=== PATIENT | female | born 1950 | race Caucasian/White ===

== ENCOUNTER → 2016-10-13 | Outpatient (CLI) | payer OTHER ==
[~2016-10-13] MED LIST: AZIT250T PO; CLXUNK; ZCRUNK
--- NOTE | 2016-10-13 14:55 | DIAGNOSTIC IMAGING REPORT ---
SINUS CT CT DOSE: 245.11 mGycm HISTORY: Sinusitis CHRONIC RHINITIS TECHNIQUE: Multiaxial CT images of the paranasal sinuses were performed and reformatted in the coronal plane without the use of contrast. COMPARISON: None. FINDINGS: Mild mucosal thickening of the sphenoid ethmoid and maxillary sinuses. Estimated units are patent bilaterally. No evidence for bony destructive process. The mastoid air cells are clear. The bilateral ostiomeatal units are patent. The nasal septum is midline. The orbits are unremarkable. IMPRESSION: Mild mucosal thickening of all major sinuses. 2. Ostiomeatal units are patent bilaterally. Electronically signed by: Geovani Queen M.D. 10/13/2016 2:53 PM Dictated Date/Time: 10/13/2016 2:47 PM
== END | disposition home or self-care (01) ==
LOC: C.CTS 12:37
PROVIDERS: ATTEND Specialist
DX: J31.0 Chronic rhinitis (principal)

== ENCOUNTER → 2016-12-30 | Outpatient (CLI) | payer OTHER ==
--- NOTE | 2016-12-30 14:15 | MAMMOGRAPHY REPORT ---
BILATERAL DIGITAL SCREENING MAMMOGRAM WITH CAD: 12/30/2016 CLINICAL HISTORY: Routine screening. Patient has no complaints. TECHNIQUE: Bilateral CC and MLO views were obtained. Current study was also evaluated with a Compute r Aided Detection (CAD) system. COMPARISON: Comparison is made to exams dated: 12/27/2015 mammogram, 12/25/2014 mammogram, 12/22/2013 m ammogram, 12/20/2012 mammogram, 12/13/2010 mammogram, and 12/12/2009 mammogram - [facility]. BREAST COMPOSITION: There are scattered areas of fibroglandular density in both breasts. FINDINGS: The parenchymal pattern is unchanged. There are a few benign coarse calcifications in the breasts. No developing mass, architectural distortion or cluster of suspicious microcalcifications is seen in either breast. IMPRESSION: ACR BI-RADS CATEGORY 2: BENIGN There is no mammographic evidence of malignancy. A 1 year screening mammogram is recommended. The pa tient will receive written notification of the results. Approximately 10% of breast cancers are not detected with mammography. A negative mammographic report should not delay biopsy if a clinically suggestive mass is present. Radha Clark M.D. ay/:12/30/2016 14:03:58 Capsule Maker: Ashlee Gutierrez, [facility] letter sent: Normal 1/2 BI-RADS Code: ACR BI-RADS Category 2: Benign
== END | disposition home or self-care (01) ==
LOC: C.MAMM 10:42
PROVIDERS: ATTEND Family Medicine
DX: Z12.31 Encounter for screening mammogram for malignant neoplasm of breast (principal)

== ENCOUNTER → 2017-04-28 | Outpatient (CLI) | payer OTHER ==
--- NOTE | 2017-04-28 09:46 | DIAGNOSTIC IMAGING REPORT ---
CT SCAN OF THE PARANASAL SINUSES CLINICAL HISTORY: Chronic sinusitis. COMPARISON STUDY: CT of the brain dated 08/14/2009. TECHNIQUE: High-resolution CT scan of the paranasal sinuses is performed. Images are reviewed in the axial, sagittal, and coronal planes. IV contrast was not administered for this examination. The examination is performed using the fusion protocol. A dose lowering technique was utilized adhering to the principles of ALARA. CT DOSE: 578.82 mGy.cm FINDINGS: Maxillary antra: Mild nodular mucosal thickening is seen bilaterally. Anterior ethmoid sinuses: Clear. Posterior ethmoid sinuses: Clear. Sphenoid sinuses: Mild mucosal thickening is seen on the left. Clear on the right. Frontal sinuses: Clear. Ostiomeatal complexes: Patent bilaterally. Frontoethmoidal and sphenoethmoidal recesses: The frontoethmoidal recesses are patent bilaterally. The sphenoethmoidal recesses are patent, noting narrowing on the left secondary to mucosal thickening. Carotid arteries: The carotid arteries are protuberant but covered and without septal attachments. Ethmoid roofs: The ethmoid roofs are symmetric. Nasal turbinates: Normal in appearance. Nasal septum: There is rightward deviation of the bony nasal septum with a small spur. Optic nerves: Covered. Orbits: The bony orbits are intact. Orbital contents are normal in appearance. There are bilateral ocular lens implants. Calvarium: The skeletal structures are osteopenic. The imaged calvarium is normal in appearance. There is a large periapical lucency identified involving a left maxillary premolar seen on axial image #61. No cortical disruption is seen. Mastoid air cells: Well pneumatized. Brain parenchyma: Partially visualized brain parenchyma is within normal limits. IMPRESSION: 1. Mild paranasal sinus disease as detailed above. 2. There is a large periapical lucency identified involving a left maxillary premolar. Follow-up with dentistry is recommended. Electronically signed by: Grady Limon M.D. 04/28/2017 9:45 AM Dictated Date/Time: 04/28/2017 9:41 AM
== END | disposition home or self-care (01) ==
LOC: C.CTS 09:24
DX: J34.2 Deviated nasal septum (principal); J32.9 Chronic sinusitis, unspecified; J34.3 Hypertrophy of nasal turbinates

== ENCOUNTER 2017-08-08 09:27 | Inpatient (IN) | payer OTHER ==
[~2017-08-08] VITALS: Ht 157.5 cm; Wt 92.4 kg
[2017-08-08] MEDS ORDERED: SODIUM CHLORIDE 0.9% 1000ML 1,000 ML IV STA (09:41)
[2017-08-08] MEDS ORDERED: ASPI81TA28 PO (10:02)
[2017-08-08] MEDS ORDERED: CITA40TA12 PO (10:02)
[2017-08-08] MEDS ORDERED: SIMV40TA2 PO (10:02)
--- NOTE | 2017-08-08 10:02 | DIAGNOSTIC IMAGING REPORT ---
CHEST ONE VIEW PORTABLE CLINICAL HISTORY: Abdominal pain and rectal bleeding status post colonoscopy. COMPARISON STUDY: No previous studies for comparison. FINDINGS: No lucency is identified under the hemidiaphragms to suggest pneumoperitoneum on this exam. Lung volumes are normal. Lungs are clear. There is slight elevation of the right hemidiaphragm. Cardiac size is within normal limits. Mediastinal contours are normal. There is no evidence for pulmonary edema. IMPRESSION: 1. No acute cardiopulmonary findings. 2. No lucency under the hemidiaphragms to suggest pneumoperitoneum on this exam. Electronically signed by: Perry Dai M.D. 08/08/2017 10:00 AM Dictated Date/Time: 08/08/2017 9:59 AM
--- NOTE | 2017-08-08 10:20 | EMERGENCY ROOM VISIT NOTE ---
History Report prepared by Satish: [place] Under the Supervision of: Dr. Thai Zepeda M.D. First contact with patient: 09:37 Chief Complaint: GI ASSESSMENT Stated Complaint: BLOOD IN STOOL POST COLONOSCOPY Nursing Triage Summary: Colonoscopy , Thursday BM "started looking like blood"per patient. " Liquid BM's but toilet water turns red like there is blood" Pt c/o abdominal pain "all over" since colonoscopy. Vomited once night. Colonoscopy was routine. History of Present Illness The patient is a 67 year old female who presents to the Emergency Room with complaints of persistent hematochezia since yesterday. The patient had a routine colonoscopy on with polyp removal. She felt fine following the procedure, until she stared noticing blood in her stool on Thursday. She called the office where she had the colonoscopy performed and they suggested to watch her stools closely and to come to the ED if the symptoms worsen. She continued to see blood in her stool today and decided to bring herself in. The patient states that there is "liquid" brown stool in the toilet, with red blood. She is also experiencing some abdominal cramping, but denies any further lightheadedness, shortness of breath, vomiting, or urinary symptoms. Source of History: patient, family Onset: Yesterday Position: other (Gastrointestinal) Quality: other (Hematochezia) Associated Symptoms: + abdominal pain, No SOB, No vomiting Review of Systems See HPI for pertinent positives and negatives. A total of ten systems were reviewed and were otherwise negative. Past Medical & Surgical Medical Problems: (1) Hx of colonic polyps Hx of colonic polyps Family History Cancer Diabetes mellitus Heart disease Hypertension Kidney disease Kidney stones Social History Smoking Status: Never Smoker Marital Status: Housing Status: lives with family Occupation Status: employed Current/Historical Medications Scheduled Aspirin (Aspirin Ec), 81 MG PO HS Citalopram Hydrobromide (Celexa), 40 MG PO QAM Simvastatin (Zocor), 40 MG PO HS Allergies Coded Allergies: No Known Allergies (Unverified , 08/08/17) Physical Exam Vital Signs Date Time Temp Pulse Resp B/P (MAP) Pulse Ox O2 Delivery O2 Flow Rate FiO2 08/08/17 10:26 86 08/08/17 09:31 36.8 117 17 138/84 94 Room Air Physical Exam GENERAL: Awake, alert, fatigued and uncomfortable appearing, in no distress HENT: Normocephalic, atraumatic. Oropharynx unremarkable. Mucous membranes are dry. EYES: Normal conjunctiva. Sclera non-icteric. NECK: Supple. No nuchal rigidity. FROM. No JVD. RESPIRATORY: Clear to auscultation. CARDIAC: Regular rate, normal rhythm. Extremities warm and well perfused. Pulses equal. ABDOMEN: Soft, non-distended. Mild generalized tenderness to palpation across the abdomen. No peritoneal signs. No rebound or guarding. No masses. RECTAL: Rectal exam reveals dark red blood. Guaiac positive. MUSCULOSKELETAL: Chest examination reveals no tenderness. The back is symmetrical on inspection without obvious abnormality. There is no CVA tenderness to palpation. No joint edema. LOWER EXTREMITIES: Calves are equal size bilaterally and non-tender. No edema. No discoloration. NEURO: Normal sensorium. No sensory or motor deficits noted. SKIN: No rash or jaundice noted. Medical Decision & Procedures ER Provider Diagnostic Interpretation: Radiology results as stated below per my review and radiologist interpretation: CHEST ONE VIEW PORTABLE CLINICAL HISTORY: Abdominal pain and rectal bleeding status post colonoscopy. COMPARISON STUDY: No previous studies for comparison. FINDINGS: No lucency is identified under the hemidiaphragms to suggest pneumoperitoneum on this exam. Lung volumes are normal. Lungs are clear. There is slight elevation of the right hemidiaphragm. Cardiac size is within normal limits. Mediastinal contours are normal. There is no evidence for pulmonary edema. IMPRESSION: 1. No acute cardiopulmonary findings. 2. No lucency under the hemidiaphragms to suggest pneumoperitoneum on this exam. Electronically signed by: Perry Dai M.D. 08/08/2017 10:00 AM Dictated Date/Time: 08/08/2017 9:59 AM Laboratory Results 08/08/17 10:02 Red Blood Count 4.81, Mean Corpuscular Volume 91.1, Mean Corpuscular Hemoglobin 30.4, Mean Corpuscular Hemoglobin Concent 33.3, Mean Platelet Volume 9.6, Neutrophils (%) (Auto) 75.8, Lymphocytes (%) (Auto) 16.7, Monocytes (%) (Auto) 6.6, Eosinophils (%) (Auto) 0.4, Basophils (%) (Auto) 0.1, Neutrophils # (Auto) 10.37, Lymphocytes # (Auto) 2.29, Monocytes # (Auto) 0.90, Eosinophils # (Auto) 0.06, Basophils # (Auto) 0.02 08/08/17 10:02 Test 08/08/17 10:02 White Blood Count 13.69 K/uL (4.8-10.8) Red Blood Count 4.81 M/uL (4.2-5.4) Hemoglobin 14.6 g/dL (12.0-16.0) Hematocrit 43.8 % (37-47) Mean Corpuscular Volume 91.1 fL (80-100) Mean Corpuscular Hemoglobin 30.4 pg (25-34) Mean Corpuscular Hemoglobin Concent 33.3 g/dl (32-36) Platelet Count 282 K/uL (130-400) Mean Platelet Volume 9.6 fL (7.4-10.4) Neutrophils (%) (Auto) 75.8 % Lymphocytes (%) (Auto) 16.7 % Monocytes (%) (Auto) 6.6 % Eosinophils (%) (Auto) 0.4 % Basophils (%) (Auto) 0.1 % Neutrophils # (Auto) 10.37 K/uL (1.4-6.5) Lymphocytes # (Auto) 2.29 K/uL (1.2-3.4) Monocytes # (Auto) 0.90 K/uL (0.11-0.59) Eosinophils # (Auto) 0.06 K/uL (0-0.5) Basophils # (Auto) 0.02 K/uL (0-0.2) RDW Standard Deviation 45.4 fL (36.4-46.3) RDW Coefficient of Variation 13.7 % (11.5-14.5) Immature Granulocyte % (Auto) 0.4 % Immature Granulocyte # (Auto) 0.05 K/uL (0.00-0.02) Prothrombin Time 10.5 SECONDS (9.0-12.0) Prothromb Time International Ratio 1.0 (0.9-1.1) Activated Partial Thromboplast Time 25.8 SECONDS (21.0-31.0) Partial Thromboplastin Ratio 1.0 Anion Gap 5.0 mmol/L (3-11) Est Creatinine Clear Calc Drug Dose 65.3 ml/min Estimated GFR () 79.9 Estimated GFR (Non- 68.9 BUN/Creatinine Ratio 11.9 (10-20) Lactic Acid Level 1.2 mmol/L (0.4-2.0) Calcium Level 8.8 mg/dl (8.5-10.1) Total Bilirubin 0.5 mg/dl (0.2-1) Direct Bilirubin < 0.1 mg/dl (0-0.2) Aspartate Amino Transf (AST/SGOT) 10 U/L (15-37) Alanine Aminotransferase (ALT/SGPT) 17 U/L (12-78) Alkaline Phosphatase 74 U/L (45-117) Total Protein 7.5 gm/dl (6.4-8.2) Albumin 3.3 gm/dl (3.4-5.0) Lipase 90 U/L (73-393) Laboratory results reviewed by me Medications Administered Medications (Trade) Dose Ordered Sig/Kari Route Start Time Stop Time Status Last Admin Dose Admin Sodium Chloride 1,000 ml @ 999 mls/hr Q1H1M STAT IV 08/08/17 09:41 08/08/17 10:41 DC 08/08/17 09:41 999 MLS/HR ECG Indication: abdominal pain Rate (beats per minute): 88 Rhythm: normal sinus Findings: no acute ischemic change, other (Normal [place]) Change: Patient's electrocardiogram interpreted by me. ED Course 0940: The patient was evaluated in room A11B. A complete history and physical exam was performed. 0941: Ordered Sodium Chloride 1000 mL @ 999 mL/hr IV. 1058: I paged for Gastroenterology at this time. 1100: I discussed the case with Dr. Martinez - [facility]. He agrees with admission to the hospital. He suggests bowel prep and maybe a repeat colonoscopy. 1109: I discussed the patient's case with Taylor Rai - [facility]. She will evaluate the patient for further treatment. Medical Decision I reviewed the patient's past medical history, medications, and the nursing notes as described above. Differential diagnosis: Etiologies such as colonic polyps, perforation, appendicitis, diverticulitis, PUD, biliary pathology, UTI, pancreatitis, obstruction, mesenteric ischemia, aortic pathology, infections, inflammatory bowel disease, renal colic, as well as others were entertained. The patient is a 67-year-old woman who presents emergency Department with red blood per rectum after having a colonoscopy on with polyp removal by Dr. Herr per history of present illness. On arrival the patient is fatigued appearing but in no acute distress, afebrile heart rate 110s but otherwise stable vital signs. On exam the patient has dark red blood per rectum that is guaiac positive. Labs unremarkable with hbg 14.6. Chest x-ray negative for free air. Heart rate improved to 80s with IV fluids and patient remained hemodynamically stable. Case discussed with GI completion manager for Dr. Herr, Dr. Martinez, agrees that patient needs criteria for admission. Likely plan for bowel prep and reassessment of bleeding and if persists likely repeat colonoscopy. Cased was discussed Dr. Rai [facility] Hospitalist, who will admit the patient for further management. Blood Pressure Screening Patient's blood pressure: Elevated blood pressure Blood pressure disposition: Elevated BP felt to be situational Consults Time Called: 1058 Consulting Physician: Dr. [facility] Returned Call: 1100 I discussed the case with Dr. [facility]. He agrees with admission to the hospital. He suggests bowel prep and maybe a repeat colonoscopy. Additional Consults: Time Called: 1101 Consulted Physician: Taylor Yanes [facility]. Returned Call: 1109 Additional Comments: I discussed the patient's case with Taylor Yanes [facility]. She will evaluate the patient for further treatment. Impression Primary Impression: GI bleed Scribe Attestation The scribe's documentation has been prepared under my direction and personally reviewed by me in its entirety. I confirm that the note above accurately reflects all work, treatment, procedures, and medical decision making performed by me. Departure Information Dispostion Being Evaluated By Hospitalist Referrals Thelma England M.D. (PCP) Patient Instructions My [facility]
[2017-08-08 10:26] LABS: BASO % 0.1 %; BASO ABS # 0.02 K/uL (0-0.2); EOS % 0.4 %; EOS ABS # 0.06 K/uL (0-0.5); HEMATOCRIT 43.8 % (37-47); HEMOGLOBIN 14.6 g/dL (12.0-16.0); IG# 0.05 K/uL (0.00-0.02); LYMPH % 16.7 %; LYMPH ABS # 2.29 K/uL (1.2-3.4); MEAN CELL VOLUME 91.1 fL (80-100); MEAN CORPUSCULAR HEMOGLOBIN 30.4 pg (25-34); MEAN CORPUSCULAR HGB CONC 33.3 g/dl (32-36); MEAN PLATELET VOLUME 9.6 fL (7.4-10.4); MONO % 6.6 %; NEUT % 75.8 %; NEUT ABS # 10.37 K/uL (1.4-6.5); PLATELET COUNT 282 K/uL (130-400); RED CELL DISTRIBUTION WIDTH CV 13.7 % (11.5-14.5); RED CELL DISTRIBUTION WIDTH SD 45.4 fL (36.4-46.3); WHITE BLOOD COUNT 13.69 K/uL (4.8-10.8)
[2017-08-08 10:35] LABS: PTT PATIENT 25.8 SECONDS (21.0-31.0)
[2017-08-08 10:44] LABS: ALBUMIN 3.3 gm/dl (3.4-5.0); ALT/SGPT 17 U/L (12-78); AST/SGOT 10 U/L (15-37); BLOOD UREA NITROGEN 10 mg/dl (7-18); CALCIUM 8.8 mg/dl (8.5-10.1); CARBON DIOXIDE 26 mmol/L (21-32); CREATININE 0.86 mg/dl (0.60-1.20); GLUCOSE 112 mg/dl (70-99); LIPASE 90 U/L (73-393); POTASSIUM 3.8 mmol/L (3.5-5.1); SODIUM 135 mmol/L (136-145)
[2017-08-08 10:47] LABS: ALKALINE PHOSPHATASE 74 U/L (45-117); TOTAL PROTEIN 7.5 gm/dl (6.4-8.2)
[2017-08-08] MEDS ORDERED: ACETAMINOPHEN 325 MG TAB PO PRN (11:30)
[2017-08-08] MEDS ORDERED: ONDANSETRON INJ 2 MG/ML 2 ML VIAL IV PRN (11:30)
[2017-08-08] MEDS ORDERED: MAGNESIUM HYDROXIDE SUSP 30 ML UDC PO PRN (11:30)
--- NOTE | 2017-08-08 11:39 | History and Physical ---
History & Physical Date & Time of Service: Aug 08, 2017 at 11:32 Chief Complaint: Blood In Stool Post Colonoscopy Primary Care Physician: Thelma England M.D. History of Present Illness Source: patient 67 y/o F c/o BRBPR. Pt had a f/u c-scope on 08/[address] Herr. She has a hx of colon polyps and this was a routine f/u. She has no prior hx of GIB and was not having any bleeding prior to her c-scope. She had no abd complaints prior to her c-scope. She had an uneventful c-scope and polyps were removed at that time. She has been having ongoing BRBPR since her c-scope. It is not getting worse, but it is not improving either. She has diffuse abd pain at times as well. No n/v. She did eat normally on after her scope, but not much yesterday and a bowl of cereal today. She has not seen clots, just blood. The blood is independent of stool. She has actually not passed any stool since her c-scope. She has no urinary issues. Pt denies fever, SOB, chest pain, LE pain or swelling. Pt does take a preventive aspirin 81mg at baseline, however this was on hold for her c-scope and she has not resumed use yet. ED physician spoke with Dr. Martinez, who is nca certified concierge for Dr. Herr. Planning for bowel prep and repeat c-scope. Past Medical/Surgical History Medical Problems: (1) Hx of colonic polyps Status: Chronic Depression Hyperlipidemia Family History Family history was reviewed; no changes noted. Father: s/p [place] Social History Smoking Status: Never Smoker Alcohol Use: none Drug Use: none Marital Status: Occupational Status: employed Multi-Drug Resistant Organisms History of MDRO: No Allergies Coded Allergies: No Known Allergies (Unverified , 08/08/17) Home Medications Scheduled Aspirin (Aspirin Ec), 81 MG PO HS Citalopram Hydrobromide (Celexa), 40 MG PO QAM Simvastatin (Zocor), 40 MG PO HS Review of Systems Pertinent positives and negatives reviewed in HPI--all others negative Physical Exam Vital Signs Date Time Temp Pulse Resp B/P (MAP) Pulse Ox O2 Delivery O2 Flow Rate FiO2 08/08/17 10:26 86 08/08/17 09:31 36.8 117 17 138/84 94 Room Air General Appearance: WD/WN, no apparent distress Head: normocephalic, atraumatic Eyes: normal inspection, sclerae normal Respiratory/Chest: normal breath sounds, no respiratory distress Cardiovascular: regular rate, rhythm, no edema Abdomen/GI: soft, + tenderness (diffuse and mild) Extremities/Musculoskelatal: no calf tenderness, no pedal edema Neurologic/Psych: alert, normal mood/affect, oriented x 3, + pertinent finding (R sided lid lag) Skin: normal color, warm/dry Diagnostics Laboratory Results Results Past 24 Hours Test 08/08/17 10:02 Range/Units White Blood Count 13.69 4.8-10.8 K/uL Red Blood Count 4.81 4.2-5.4 M/uL Hemoglobin 14.6 12.0-16.0 g/dL Hematocrit 43.8 37-47 % Mean Corpuscular Volume 91.1 80-100 fL Mean Corpuscular Hemoglobin 30.4 25-34 pg Mean Corpuscular Hemoglobin Concent 33.3 32-36 g/dl Platelet Count 282 130-400 K/uL Mean Platelet Volume 9.6 7.4-10.4 fL Neutrophils (%) (Auto) 75.8 % Lymphocytes (%) (Auto) 16.7 % Monocytes (%) (Auto) 6.6 % Eosinophils (%) (Auto) 0.4 % Basophils (%) (Auto) 0.1 % Neutrophils # (Auto) 10.37 1.4-6.5 K/uL Lymphocytes # (Auto) 2.29 1.2-3.4 K/uL Monocytes # (Auto) 0.90 0.11-0.59 K/uL Eosinophils # (Auto) 0.06 0-0.5 K/uL Basophils # (Auto) 0.02 0-0.2 K/uL RDW Standard Deviation 45.4 36.4-46.3 fL RDW Coefficient of Variation 13.7 11.5-14.5 % Immature Granulocyte % (Auto) 0.4 % Immature Granulocyte # (Auto) 0.05 0.00-0.02 K/uL Prothrombin Time 10.5 9.0-12.0 SECONDS Prothromb Time International Ratio 1.0 0.9-1.1 Activated Partial Thromboplast Time 25.8 21.0-31.0 SECONDS Partial Thromboplastin Ratio 1.0 Sodium Level 135 136-145 mmol/L Potassium Level 3.8 3.5-5.1 mmol/L Chloride Level 104 98-107 mmol/L Carbon Dioxide Level 26 21-32 mmol/L Anion Gap 5.0 3-11 mmol/L Blood Urea Nitrogen 10 7-18 mg/dl Creatinine 0.86 0.60-1.20 mg/dl Est Creatinine Clear Calc Drug Dose 65.3 ml/min Estimated GFR () 79.9 Estimated GFR (Non- 68.9 BUN/Creatinine Ratio 11.9 10-20 Random Glucose 112 70-99 mg/dl Lactic Acid Level 1.2 0.4-2.0 mmol/L Calcium Level 8.8 8.5-10.1 mg/dl Total Bilirubin 0.5 0.2-1 mg/dl Direct Bilirubin < 0.1 0-0.2 mg/dl Aspartate Amino Transf (AST/SGOT) 10 15-37 U/L Alanine Aminotransferase (ALT/SGPT) 17 12-78 U/L Alkaline Phosphatase 74 45-117 U/L Total Protein 7.5 6.4-8.2 gm/dl Albumin 3.3 3.4-5.0 gm/dl Lipase 90 73-393 U/L CXR normal Impression Assessment and Plan 67 y/o F who was admitted on 08/08 for GIB s/p c-scope GIB: likely related to recent c-scope with polyp removal Hb stable at 14.4, will repeat later today GI planning for repeat c-scope, unsure if this will be today vs tomorrow NPO for now with D5NS +K given mild hypoNa and borderline low normal K Continue to hold aspirin Depression: continue home meds Hyperlipidemia: hold statin and resume s/p c-scope Other: Full code Ambulation for DVT proph NPO with IVF Level of Care Med/Surg Resuscitation Status FULL RESUSCITATION VTE Prophylaxis VTE Risk Assessment Done? Y/N: Yes Risk Level: Low
[2017-08-08 12:45] VITALS: BP 155/83; PULSE 70; TEMP 36.9; O2SAT 98; Ht 157.5 cm; Wt 92.4 kg
[2017-08-08] MEDS: D5NSS + 20MEQ KCL 1,000 ML IV SCH ×2 (13:27→21:40)
[2017-08-08] MEDS ORDERED: OPTIRAY 320 IV PRN (14:15)
--- NOTE | 2017-08-08 14:17 | Gastrointestinal Consultation ---
Gastrointestinal Consultation Date of Consultation: Aug 08, 2017 Attending Physician: Taylor Alfaro Consulting Physician: Willem Martinez Reason for Consultation: GI bleeding History of Present Illness Patient is a 67 year old female with chief complaint of bleeding and abdominal pain. HPI. with patient for H and P. Reviewed [facility] chart and noted patient had colonoscopy 07/2016 with removal of 22 mm AC polyp, diverticulosis and hemorrhoids. Path sessile serrated. She was brought back for repeat colonoscopy by DR Herr on 08/06/17 at which time a 3 mm polyp noted in mid AC and one in mid TC each removed by cold forceps. Muliple sigmoid diverticula and moderate internal hemorrhoids noted. She is on ASA but held prior to procedure and not resumed. She states she had LLQ pain post colo with improvement but never went away completely. Intensitity waxes and wanes with max 8/10 pain. She states on 08/07 noted some bleeding and informed by office to watch and if worsened come to ER which she did today. She thinks she has had a total of about 10 bms all blood including clots. No regular colored stool since colonoscopy. Some n/v and chills on 08/06 but none since. Does have GERD. No previous bleeding and no other GI complaints prior to colonoscopy. CBC on admit WBC 13.7 o/w nl. Coags normal. lactic acid normal. Rectal in ER gross blood. Past Medical/Surgical History Medical Problems: (1) GI bleed Status: Acute (2) Hx of colonic polyps Status: Chronic Family History Cancer Diabetes mellitus Heart disease Hypertension Kidney disease Kidney stones Social History Smoking Status: Never Smoker Drug Use: none Marital Status: Housing Status: lives with family Occupation Status: employed Allergies Coded Allergies: No Known Allergies (Unverified , 08/08/17) Current Medications Home Meds and Scripts Medications Dose Route/Sig Max Daily Dose Days Date Category Aspirin Ec (Aspirin) 81 Mg Tab 81 Mg PO HS 08/08/17 Reported Celexa (Citalopram Hydrobromide) 40 Mg Tab 40 Mg PO QAM 08/08/17 Reported Zocor (Simvastatin) 40 Mg Tab 40 Mg PO HS 08/08/17 Reported Review of Systems see HPI otherwise 10 ROS negative. Physical Exam Date Time Temp Pulse Resp B/P (MAP) Pulse Ox O2 Delivery O2 Flow Rate FiO2 08/08/17 12:45 36.9 70 70 155/83 98 Room Air 08/08/17 12:17 08/08/17 11:31 69 20 153/93 96 Room Air 08/08/17 10:26 86 08/08/17 09:31 36.8 117 17 138/84 94 Room Air General Appearance: WD/WN, no apparent distress Eyes: normal inspection, PERRL ENT: hearing grossly normal, pharynx normal Neck: supple, trachea midline Respiratory/Chest: lungs clear, normal breath sounds, no respiratory distress Cardiovascular: regular rate, rhythm, no edema Abdomen: normal bowel sounds, soft, no organomegaly, no pulsatile mass, + tenderness (mild guarding LLQ and subjective pain RLQ but no rebound) Extremities: normal range of motion, non-tender Neurologic/Psych: public health sanitarian II-XII nml as tested, alert, normal mood/affect, oriented x 3 Skin: normal color, no jaundice Laboratory Results Last 24 Hours Test 08/08/17 10:02 White Blood Count 13.69 K/uL Red Blood Count 4.81 M/uL Hemoglobin 14.6 g/dL Hematocrit 43.8 % Mean Corpuscular Volume 91.1 fL Mean Corpuscular Hemoglobin 30.4 pg Mean Corpuscular Hemoglobin Concent 33.3 g/dl Platelet Count 282 K/uL Mean Platelet Volume 9.6 fL Neutrophils (%) (Auto) 75.8 % Lymphocytes (%) (Auto) 16.7 % Monocytes (%) (Auto) 6.6 % Eosinophils (%) (Auto) 0.4 % Basophils (%) (Auto) 0.1 % Neutrophils # (Auto) 10.37 K/uL Lymphocytes # (Auto) 2.29 K/uL Monocytes # (Auto) 0.90 K/uL Eosinophils # (Auto) 0.06 K/uL Basophils # (Auto) 0.02 K/uL RDW Standard Deviation 45.4 fL RDW Coefficient of Variation 13.7 % Immature Granulocyte % (Auto) 0.4 % Immature Granulocyte # (Auto) 0.05 K/uL Prothrombin Time 10.5 SECONDS Prothromb Time International Ratio 1.0 Activated Partial Thromboplast Time 25.8 SECONDS Partial Thromboplastin Ratio 1.0 Sodium Level 135 mmol/L Potassium Level 3.8 mmol/L Chloride Level 104 mmol/L Carbon Dioxide Level 26 mmol/L Anion Gap 5.0 mmol/L Blood Urea Nitrogen 10 mg/dl Creatinine 0.86 mg/dl Est Creatinine Clear Calc Drug Dose 65.3 ml/min Estimated GFR () 79.9 Estimated GFR (Non- 68.9 BUN/Creatinine Ratio 11.9 Random Glucose 112 mg/dl Lactic Acid Level 1.2 mmol/L Calcium Level 8.8 mg/dl Total Bilirubin 0.5 mg/dl Direct Bilirubin < 0.1 mg/dl Aspartate Amino Transf (AST/SGOT) 10 U/L Alanine Aminotransferase (ALT/SGPT) 17 U/L Alkaline Phosphatase 74 U/L Total Protein 7.5 gm/dl Albumin 3.3 gm/dl Lipase 90 U/L Impression GI bleeding--differential includes post polypectomy bleeding but polyps size and removal technique not typical for polyp bleeding, diverticular bleeding, ischemic colitis, hemorrhoids. Follow H and H. abdominal pain--post polypectomy bleeding and diverticular bleeding are associated with minimal to no pain typically so will check A/P CT to look for ischemic colitis or diverticulitis hemorrhoids--do not really expain either of above. If CT negative then will give golytely bowel prep and make a decision on whether to proceed with colonoscopy or not in next day or two. Colonoscopy would be designed to look for post polypectomy bleeding with therapeutic intent. Ok for clear liquids after back from CT scan.
[2017-08-08] MEDS ORDERED: KETOROLAC TROMETHAMINE 15 MG/ML VIAL IV. PRN (15:30)
[2017-08-08 15:37] VITALS: BP 157/78; PULSE 76; TEMP 36.6; O2SAT 95
--- NOTE | 2017-08-08 17:19 | DIAGNOSTIC IMAGING REPORT ---
ABDOMEN AND PELVIS CT WITH IV AND ORAL CONTRAST CT DOSE: 1294.46 mGy.cm HISTORY: Left lower quadrant abdominal pain, GI bleed post colonoscopy with polypectomy AC and TC TECHNIQUE: Multiaxial CT images of the abdomen and pelvis were performed following the use of intravenous and oral contrast. A dose lowering technique was utilized adhering to the principles of ALARA. COMPARISON STUDY: None. FINDINGS: Mild dependent changes seen at the lung bases. No pneumoperitoneum. No pneumatosis. No fractures within the visualized osseous structures. Small hiatus hernia. There are few small hypodense lesions seen within the liver. Dominant lesion within the left hepatic lobe measures 11 mm. These favor small cysts. The spleen, adrenal glands, gallbladder, and pancreas are unremarkable. No retroperitoneal lymphadenopathy. Bilateral peripelvic renal cysts. No hydronephrosis. The bladder, uterus, and bilateral adnexa are unremarkable. Trace pelvic free fluid. Scattered colonic diverticula. Normal appendix. Moderate bowel wall thickening involving the ascending colon and transverse colon. There is also mild thickening of the majority of the descending colon. No dilated loops of bowel to suggest an obstruction. IMPRESSION: 1. Thickening of the majority of the colon as described above. This is consistent with an inflammatory or infectious colitis. 2. No pneumoperitoneum. No pneumatosis. 3. Trace pelvic fluid. 4. Small hiatus hernia. 5. No evidence for bowel obstruction. Electronically signed by: Ford Stovall M.D. 08/08/2017 5:18 PM Dictated Date/Time: 08/08/2017 5:12 PM
[2017-08-08 18:03] LABS: HEMOGLOBIN 12.8 g/dL (12.0-16.0)
[2017-08-08 23:00] VITALS: BP 137/76; PULSE 72; TEMP 36.8; O2SAT 97
[2017-08-09] MEDS: D5NSS + 20MEQ KCL 1,000 ML IV SCH ×2 (05:10→14:27)
[2017-08-09 06:20] LABS: HEMATOCRIT 36.2 % (37-47); HEMOGLOBIN 11.7 g/dL (12.0-16.0)
[2017-08-09 07:29] VITALS: BP 126/76; PULSE 71; TEMP 37.2; O2SAT 94
[2017-08-09] MEDS: CITALOPRAM 40 MG TAB PO SCH (07:30)
[2017-08-09 08:00] VITALS: O2SAT 94
[2017-08-09] MEDS: CIPROFLOXACIN / D5W 400 MG in PREMIXED IN D5W 200 ML IV SCH ×2 (09:38→20:11)
[2017-08-09] MEDS: METRONIDAZOLE / NSS 500 MG in PREMIXED NSS 100 ML IV SCH ×2 (11:57→18:36)
[2017-08-09 12:10] LABS: HEMATOCRIT 36.9 % (37-47); HEMOGLOBIN 12.2 g/dL (12.0-16.0); MEAN CELL VOLUME 91.3 fL (80-100); MEAN CORPUSCULAR HEMOGLOBIN 30.2 pg (25-34); MEAN CORPUSCULAR HGB CONC 33.1 g/dl (32-36); MEAN PLATELET VOLUME 9.5 fL (7.4-10.4); PLATELET COUNT 231 K/uL (130-400); RED CELL DISTRIBUTION WIDTH CV 13.5 % (11.5-14.5); RED CELL DISTRIBUTION WIDTH SD 45.1 fL (36.4-46.3); WHITE BLOOD COUNT 9.69 K/uL (4.8-10.8)
[2017-08-09 12:44] LABS: CALCIUM 8.2 mg/dl (8.5-10.1); CREATININE 0.73 mg/dl (0.60-1.20)
--- NOTE | 2017-08-09 14:26 | Gastroenterology Progress Note ---
Progress Note Date of Service: Aug 09, 2017 Subjective Pt evaluation today including: conversation w/ patient, conversation w/ family (daughter and ), physical exam, chart review, lab review, review of studies, review of inpatient medication list CC f/u GI Bleeding, abd pain HPI Daugther and with patient for H and P. Pt and nurse think blood is clearing up. Pt states had BM about 0800 and again earlier this afternoon. The afternoon one nurse was not shown. Stools are diarrheal in consistency. i just witnessed one in toilet flecks of brown but no blood at all. Abd pain is improved per patient at 2/10. Has nausea and is not really hungry but can tolerate some of her clear liquid diet. Because of CT suggesting possible infectious etiology she has been placed on cipro and flagyl. I asked patient about first meal post colo and she states had fried eggs not done completely with runny egg whites (not done enough for how she likes them). . No one else ate what she ate. Review of Systems Respiratory: No shortness of breath Cardiac: No chest pain Medications Current Inpatient Medications Medications (Trade) Dose Ordered Sig/Kari Route Start Time Stop Time Status Last Admin Dose Admin Acetaminophen (Tylenol Tab) 650 mg Q4H PRN PO 08/08/17 11:30 09/07/17 11:29 Magnesium Hydroxide (Milk Of Magnesia Susp) 30 ml Q6H PRN PO 08/08/17 11:30 09/07/17 11:29 Ondansetron HCl (Zofran Inj) 4 mg Q6H PRN IV 08/08/17 11:30 09/07/17 11:29 Citalopram Hydrobromide (celeXA TAB) 40 mg QAM PO 08/09/17 08:00 09/08/17 08:59 08/09/17 07:30 40 MG Potassium Chloride/Dextrose/ Sod Cl 1,000 ml @ 125 mls/hr Q8H IV 08/08/17 13:15 09/07/17 13:14 08/09/17 05:10 125 MLS/HR Ioversol (Optiray 320) 111 ml UD PRN IV 08/08/17 14:15 08/12/17 14:14 Ketorolac Tromethamine (Toradol Inj) 15 mg Q6H PRN IV. 08/08/17 15:30 2/1/18 15:29 08/08/17 15:40 15 MG Ciprofloxacin/ Dextrose 400 mg/ Prmx 200 ml @ 100 mls/hr Q12H IV 08/09/17 09:00 08/19/17 08:59 08/09/17 09:38 100 MLS/HR Metronidazole 500 mg/Prmx 100 ml @ 100 mls/hr Q8H IV 08/09/17 11:00 08/19/17 10:59 08/09/17 11:57 100 MLS/HR Objective Vital Signs Date Time Temp Pulse Resp B/P (MAP) Pulse Ox O2 Delivery O2 Flow Rate FiO2 08/09/17 08:30 Room Air 08/09/17 08:00 94 Room Air 08/09/17 07:29 37.2 71 16 126/76 (93) 94 Room Air 08/09/17 00:09 Room Air 08/08/17 23:00 36.8 72 18 137/76 (96) 97 Room Air 08/08/17 16:00 Room Air 08/08/17 15:37 36.6 76 18 157/78 (104) 95 Room Air Physical Exam General Appearance: WD/WN, no apparent distress Cardiovascular: regular rate, rhythm, no edema Abdomen: normal bowel sounds, non tender, soft, no organomegaly, + tenderness ( subjective LLQ pain but no guarding nor rebound, ) Neurologic/Psych: alert, normal mood/affect, oriented x 3 Skin: normal color, no jaundice, warm/dry Laboratory Results Last 24 Hours Test 08/08/17 17:44 08/09/17 05:55 08/09/17 11:47 Hemoglobin 12.8 g/dL 11.7 g/dL 12.2 g/dL Hematocrit 39.0 % 36.2 % 36.9 % White Blood Count 9.69 K/uL Red Blood Count 4.04 M/uL Mean Corpuscular Volume 91.3 fL Mean Corpuscular Hemoglobin 30.2 pg Mean Corpuscular Hemoglobin Concent 33.1 g/dl RDW Standard Deviation 45.1 fL RDW Coefficient of Variation 13.5 % Platelet Count 231 K/uL Mean Platelet Volume 9.5 fL Sodium Level 138 mmol/L Potassium Level 4.0 mmol/L Chloride Level 107 mmol/L Carbon Dioxide Level 25 mmol/L Anion Gap 6.0 mmol/L Blood Urea Nitrogen 5 mg/dl Creatinine 0.73 mg/dl Est Creatinine Clear Calc Drug Dose 77.0 ml/min Estimated GFR () 97.4 Estimated GFR (Non- 84.0 BUN/Creatinine Ratio 6.8 Random Glucose 100 mg/dl Calcium Level 8.2 mg/dl Assessment and Plan GI bleeding--resolved Abnormal colon on CT scan--timimg suggestive of infection or ischemic coltiits. Cdiff negative, Stool cx pending. Continue Abx Diverticulosis--no evidence of diverticulitiis but current abx would cover that also Colon polyp s/p polypectomy---do not thinks she is bleeding from post polypectomy and has is not bleeding at present, anyway. Favor expenctant management at this time with NO plan for colonoscopy at this point. Advance diet as tolerated.
--- NOTE | 2017-08-09 14:31 | Hospitalist Progress Note ---
Hospitalist Progress Note Date of Service Aug 09, 2017. (Dai Poole, NICKC) Subjective Pt evaluation today including: conversation w/ patient, conversation w/ family , physical exam, chart review, lab review, review of studies, review of inpatient medication list Patient reports she was feeling pretty good this AM but states when she got up and moved her abdominal bloating seemed to return. Continues to have diffuse tenderness. On palpation it is only present along the colon track consistent with CT findings. States she had some loose stool this AM but didn't look to see if there was any blood. Tolerating clear diet and states it hasn't made her pain worse. Does feel a little nauseous but no emesis. Hemoglobin trended down which is likely dilutional but is improving. C. diff is negative and leukocytosis resolved. Will cover with Cipro and Flagyl and monitor. Additional Comments: General/Constitutional: Denies fever/chills, fatigue, weakness ENT: Denies nasal drainage, hearing loss, sore throat, trouble swallowing Cardiovascular: Denies chest pain, palpitations, edema Respiratory: Denies cough, sputum, SOB, wheezing, orthopnea GI: + nausea, + diffuse abdominal pain + loose stool; Denies vomiting, constipation : Denies dysuria, frequency, hematuria Musculoskeletal: Denies joint/muscle aches, weakness, swelling Neurologic: Denies dizziness/lightheadedness, numbness/tingling, weakness Hematologic/Lymphatic: Denies bleeding/clotting abnormalities - except for BRBPR prior to admission Skin: Denies rash, new skin changes, easy bruising (Dai Poole, NICKC) Medications Current Inpatient Medications Medications (Trade) Dose Ordered Sig/Kari Route Start Time Stop Time Status Last Admin Dose Admin Acetaminophen (Tylenol Tab) 650 mg Q4H PRN PO 08/08/17 11:30 09/07/17 11:29 Magnesium Hydroxide (Milk Of Magnesia Susp) 30 ml Q6H PRN PO 08/08/17 11:30 09/07/17 11:29 Ondansetron HCl (Zofran Inj) 4 mg Q6H PRN IV 08/08/17 11:30 09/07/17 11:29 Citalopram Hydrobromide (celeXA TAB) 40 mg QAM PO 08/09/17 08:00 09/08/17 08:59 08/09/17 07:30 40 MG Potassium Chloride/Dextrose/ Sod Cl 1,000 ml @ 125 mls/hr Q8H IV 08/08/17 13:15 09/07/17 13:14 08/09/17 05:10 125 MLS/HR Ioversol (Optiray 320) 111 ml UD PRN IV 08/08/17 14:15 08/12/17 14:14 Ketorolac Tromethamine (Toradol Inj) 15 mg Q6H PRN IV. 08/08/17 15:30 08/13/17 15:29 08/08/17 15:40 15 MG Ciprofloxacin/ Dextrose 400 mg/ Prmx 200 ml @ 100 mls/hr Q12H IV 08/09/17 09:00 08/19/17 08:59 08/09/17 09:38 100 MLS/HR Metronidazole 500 mg/Prmx 100 ml @ 100 mls/hr Q8H IV 08/09/17 11:00 08/19/17 10:59 08/09/17 11:57 100 MLS/HR (Dai Poole PA-C) Objective Vital Signs Date Time Temp Pulse Resp B/P (MAP) Pulse Ox O2 Delivery O2 Flow Rate FiO2 08/09/17 08:30 Room Air 08/09/17 08:00 94 Room Air 08/09/17 07:29 37.2 71 16 126/76 (93) 94 Room Air 08/09/17 00:09 Room Air 08/08/17 23:00 36.8 72 18 137/76 (96) 97 Room Air 08/08/17 16:00 Room Air 08/08/17 15:37 36.6 76 18 157/78 (104) 95 Room Air (Dai Poole PA-C) Physical Exam Notes: General Appearance: WDWN in NAD who is A&O x 3 HEENT: Head is normocephalic/atraumatic; Hearing grossly intact; Mucous membranes moist; Pharynx negative for exudate/lesions Neck: Supple; Trachea midline; Neg JVD; Neg lymphadenopathy Heart: RRR with no M/G/R Lungs: CTA in all lung ramos bilaterally; Respirations unlabored; Neg accessory muscle use Abdomen: + Tenderness along colonic track; neg guarding or rigidity - no acute abdomen; Soft with minimal distension; Positive BS x 4 quadrants Extremities: Neg cyanosis or edema Neurological: Speech clear; Neg focal neurologic deficits Psychiatric: Appropriate mood/affect Skin: Normal Color; Warm/Dry (Dai Poole PA-C) Laboratory Results Last 24 Hours Test 08/08/17 17:44 08/09/17 05:55 08/09/17 11:47 Hemoglobin 12.8 g/dL 11.7 g/dL 12.2 g/dL Hematocrit 39.0 % 36.2 % 36.9 % White Blood Count 9.69 K/uL Red Blood Count 4.04 M/uL Mean Corpuscular Volume 91.3 fL Mean Corpuscular Hemoglobin 30.2 pg Mean Corpuscular Hemoglobin Concent 33.1 g/dl RDW Standard Deviation 45.1 fL RDW Coefficient of Variation 13.5 % Platelet Count 231 K/uL Mean Platelet Volume 9.5 fL Sodium Level 138 mmol/L Potassium Level 4.0 mmol/L Chloride Level 107 mmol/L Carbon Dioxide Level 25 mmol/L Anion Gap 6.0 mmol/L Blood Urea Nitrogen 5 mg/dl Creatinine 0.73 mg/dl Est Creatinine Clear Calc Drug Dose 77.0 ml/min Estimated GFR () 97.4 Estimated GFR (Non- 84.0 BUN/Creatinine Ratio 6.8 Random Glucose 100 mg/dl Calcium Level 8.2 mg/dl (Dai Poole PA-C) Assessment and Plan 67 y/o F who was admitted on 08/08 for GIB s/p c-scope GIB - BRBPR S/P Recent Colonoscopy: - Initial decrease in Hgb which is likely dilutional and stabilizing - no indications for transfusion - Will continue to monitor - patient reports 2 loose stool this AM but did not check for blood Sepsis 2/2 Colitis: - CT shows diffuse thickening of the majority of the colon and suspect infectious souce; patient was initially tachycardic with a leukocytosis that has resolved - C. diff is negative with stool cx pending - Ciprofloxacin 400 mg BID and Flagyl 500 mg TID - Continue to hold ASA - Continue clear liquid diet - GI following - appreciate recommendations - suggests infectious etiology and no indications for repeat colonoscopy at this time DVT Prophylaxis: SCDs Code Status: FULL RESUSCITATION Disposition: - Continue clear liquid diet and monitor Continued [facility] stay due to: multiple IV medications needed Discharge planning: home (Dai Poole, AMDELEINE) Reviewed: Pt Seen/Exam by Me (Chiquis Lancaster MD) History Physician Natural Sciences Professor Supervision Note: I interviewed and examined the patient. Discussed with YEVGENIY Poole and agree with findings and plan as documented in the note. Any exceptions or clarifications are listed here: Pt feeling better later in the day, abd pain mild but still present. Had a brown stool this afternoon. Hgb has remained stable throughout the day. Afebrile. Vitals reviewed NAD, obese RRR no mgr CTAB no wcr Abd +BS, soft, +TTP LLQ and RLQ without guarding or rebound tenderness Ext no edema 67 yo female with a h/o sessile serrated colon polyps, depression, hyperlipidemia, here with GI bleeding and abdominal pain, with pancolitis, sepsis s/p colonoscopy with polypectomy. C. diff and stool culture negative -hgb with slight drop but has stabilized -bleeding most likely secondary to either infectious colitis vs ischemic colitis as was painful and given diffuse colon wall thickening on CT; not likely secondary to polypectomy bleeding -started Cipro and Flagyl empirically today -follow WBC count -continue clears diet today and advance as tolerated perhaps in the AM -continue IVFs for now Documented By: Chiquis Lancaster (Chiquis Lancaster MD)
[2017-08-09 15:15] VITALS: BP 149/83; PULSE 66; TEMP 36.7; O2SAT 98
[2017-08-09 23:17] VITALS: BP 138/81; PULSE 71; TEMP 36.8; O2SAT 95
[2017-08-10] MEDS: METRONIDAZOLE / NSS 500 MG in PREMIXED NSS 100 ML IV SCH (03:29)
[2017-08-10 06:01] LABS: HEMATOCRIT 35.9 % (37-47); HEMOGLOBIN 11.7 g/dL (12.0-16.0); MEAN CELL VOLUME 91.3 fL (80-100); MEAN CORPUSCULAR HEMOGLOBIN 29.8 pg (25-34); MEAN CORPUSCULAR HGB CONC 32.6 g/dl (32-36); MEAN PLATELET VOLUME 9.6 fL (7.4-10.4); PLATELET COUNT 228 K/uL (130-400); RED CELL DISTRIBUTION WIDTH CV 13.4 % (11.5-14.5); RED CELL DISTRIBUTION WIDTH SD 44.7 fL (36.4-46.3); WHITE BLOOD COUNT 7.08 K/uL (4.8-10.8)
[2017-08-10] MEDS: D5NSS + 20MEQ KCL 1,000 ML IV SCH ×2 (06:16→12:35)
[2017-08-10 06:40] LABS: CALCIUM 8.3 mg/dl (8.5-10.1); CREATININE 0.74 mg/dl (0.60-1.20); POTASSIUM 3.8 mmol/L (3.5-5.1)
[2017-08-10 07:39] VITALS: BP 152/84; PULSE 69; TEMP 36.8; O2SAT 95
[2017-08-10] MEDS: CIPROFLOXACIN / D5W 400 MG in PREMIXED IN D5W 200 ML IV SCH (07:42)
[2017-08-10] MEDS: CITALOPRAM 40 MG TAB PO SCH (07:42)
[2017-08-10 08:00] VITALS: O2SAT 95
--- NOTE | 2017-08-10 09:23 | Clinical Documentation Query ---
MIKE Juarez : CLINICAL DOCUMENTATION QUERY Patient is a 67 year old female admitted for evaluation of BRBPR s/p recent colonoscopy. CT scan of the abdomen demonstrated "diffuse thickening of the majority of the colon and suspect infectious source". To avoid uncertainty at time of discharge, consider documentation by one of two means suggested below. In your clinical opinion is this patient being managed for: ( ) Sepsis due to pancolitis s/p colonoscopy and polypectomy, a complication of care ( ) Sepsis due to pancolitis s/p colonoscopy and polypectomy, NOT a complication of care ( ) Not Agree ( ) Other explanation of clinical findings (Please Explain) ( ) Unable to determine (Please Define) ( ) Need to Discuss The medical record reflects the following clinical findings, treatment, and risk factors. Clinical Indicators: As above Treatment: Ciprofloxacin, Flagyl, ASA, CL diet, GI consultation Risk Factors: Recent colonoscopy Please clarify and document your clinical opinion in the progress notes and discharge summary. Terms such as "probable", "suspected", "likely", "questionable", "possible", or "still to be ruled out" are acceptable. IF IN AGREEMENT, YOU MUST DOCUMENT ABOVE DIAGNOSTIC STATEMENT IN DAILY PROGRESS NOTES AND DISCHARGE SUMMARY. This document is not part of the patient's record. Thank You, Willem Alexandre RN [phone]
[2017-08-10] MEDS ORDERED: METRONIDAZOLE 500 MG TAB PO SCH (11:00)
[2017-08-10] MEDS ORDERED: NURSING VERBAL MED ORDER ONE (12:45)
--- NOTE | 2017-08-10 12:48 | Clinical Documentation Query ---
SAM MCKENZIE : CLINICAL DOCUMENTATION QUERY Patient is a 67 year old female admitted for evaluation of BRBPR s/p recent colonoscopy. CT scan of the abdomen demonstrated "diffuse thickening of the majority of the colon and suspect infectious source". To avoid uncertainty at time of discharge, consider documentation by one of two means suggested below. In your clinical opinion is this patient being managed for: ( ) Sepsis due to pancolitis s/p colonoscopy and polypectomy, a complication of care ( x) Sepsis due to pancolitis s/p colonoscopy and polypectomy, NOT a complication of care ( ) Not Agree ( ) Other explanation of clinical findings (Please Explain) ( ) Unable to determine (Please Define) ( ) Need to Discuss The medical record reflects the following clinical findings, treatment, and risk factors. Clinical Indicators: As above Treatment: Ciprofloxacin, Flagyl, ASA, CL diet, GI consultation Risk Factors: Recent colonoscopy Please clarify and document your clinical opinion in the progress notes and discharge summary. Terms such as "probable", "suspected", "likely", "questionable", "possible", or "still to be ruled out" are acceptable. IF IN AGREEMENT, YOU MUST DOCUMENT ABOVE DIAGNOSTIC STATEMENT IN DAILY PROGRESS NOTES AND DISCHARGE SUMMARY. This document is not part of the patient's record. Thank You, Willem Alexandre, RODRICK [phone]
[2017-08-10] MEDS ORDERED: MTR500 PO (13:00)
[2017-08-10] MEDS ORDERED: CPR500 PO (13:00)
--- NOTE | 2017-08-10 13:17 | Gastroenterology Progress Note ---
Progress Note Date of Service: Aug 10, 2017 Subjective Pt evaluation today including: conversation w/ patient, conversation w/ family (), physical exam, chart review, lab review, review of studies, review of inpatient medication list cc f/u GI bleeding. HPI Pt states minimal to no pain. No further blood in stools. Tolerating full liquid diet so far and wants to go home. Review of Systems Respiratory: No shortness of breath Cardiac: No chest pain Medications Current Inpatient Medications Medications (Trade) Dose Ordered Sig/Kari Route Start Time Stop Time Status Last Admin Dose Admin Acetaminophen (Tylenol Tab) 650 mg Q4H PRN PO 08/08/17 11:30 09/07/17 11:29 Magnesium Hydroxide (Milk Of Magnesia Susp) 30 ml Q6H PRN PO 08/08/17 11:30 09/07/17 11:29 Ondansetron HCl (Zofran Inj) 4 mg Q6H PRN IV 08/08/17 11:30 09/07/17 11:29 Citalopram Hydrobromide (celeXA TAB) 40 mg QAM PO 08/09/17 08:00 09/08/17 08:59 08/10/17 07:42 40 MG Potassium Chloride/Dextrose/ Sod Cl 1,000 ml @ 80 mls/hr [id number] IV 08/08/17 13:15 09/07/17 13:14 08/10/17 06:16 80 MLS/HR Ioversol (Optiray 320) 111 ml UD PRN IV 08/08/17 14:15 08/12/17 14:14 Ketorolac Tromethamine (Toradol Inj) 15 mg Q6H PRN IV. 08/08/17 15:30 08/13/17 15:29 08/08/17 15:40 15 MG Ciprofloxacin (Cipro Tab) 500 mg BID PO 08/10/17 20:00 08/19/17 19:59 Metronidazole (Flagyl Tab) 500 mg TID PO 08/10/17 11:00 08/19/17 23:59 08/10/17 12:24 500 MG Miscellaneous Information (Nursing Verbal Med Order) 1 ea ONE ONCE N/A 08/10/17 12:45 08/10/17 12:46 UNV Objective Vital Signs Date Time Temp Pulse Resp B/P (MAP) Pulse Ox O2 Delivery O2 Flow Rate FiO2 08/10/17 08:00 95 Room Air 08/10/17 07:39 36.8 69 16 152/84 (106) 95 Room Air 08/10/17 00:01 Room Air 08/09/17 23:17 36.8 71 18 138/81 (100) 95 Room Air 08/09/17 16:00 Room Air 08/09/17 15:15 36.7 66 16 149/83 (105) 98 Physical Exam General Appearance: WD/WN, no apparent distress Cardiovascular: regular rate, rhythm, no edema Abdomen: normal bowel sounds, non tender, soft, no organomegaly, no pulsatile mass Neurologic/Psych: alert, normal mood/affect, oriented x 3 Skin: normal color Laboratory Results Last 24 Hours Test 08/10/17 05:18 White Blood Count 7.08 K/uL Red Blood Count 3.93 M/uL Hemoglobin 11.7 g/dL Hematocrit 35.9 % Mean Corpuscular Volume 91.3 fL Mean Corpuscular Hemoglobin 29.8 pg Mean Corpuscular Hemoglobin Concent 32.6 g/dl RDW Standard Deviation 44.7 fL RDW Coefficient of Variation 13.4 % Platelet Count 228 K/uL Mean Platelet Volume 9.6 fL Sodium Level 138 mmol/L Potassium Level 3.8 mmol/L Chloride Level 107 mmol/L Carbon Dioxide Level 25 mmol/L Anion Gap 6.0 mmol/L Blood Urea Nitrogen 4 mg/dl Creatinine 0.74 mg/dl Est Creatinine Clear Calc Drug Dose 75.9 ml/min Estimated GFR () 95.8 Estimated GFR (Non- 82.7 BUN/Creatinine Ratio 5.3 Random Glucose 107 mg/dl Calcium Level 8.3 mg/dl Magnesium Level 2.0 mg/dl Assessment and Plan GI bleeding--resolved Abnormal colon on CT scan--timimg suggestive of infection or ischemic coltiits. Cdiff negative, Stool cx NGSF. Continue Abx for total 10 day course Diverticulosis--no evidence of diverticulitiis but current abx would cover that also Colon polyp s/p polypectomy---do not thinks she is bleeding from post polypectomy and has is not bleeding at present, anyway. Discussed with Dai VUONG for hospitalists and agree with their plan to DC patient today on abx for 10 days. Told her and patient to delay ASA resumption at least until thusday of this week and perhaps longer. Told patient I feel infection most likely explanation and should resolve but if having further ongoing symptoms then arrange OV with DR Herr.
--- NOTE | 2017-08-10 13:34 | Discharge Instructions ---
Discharge Instructions Date of Service Aug 10, 2017. Admission Reason for Admission: Gi Bleed Discharge Discharge Diagnosis / Problem: GI Bleed; Infectious Colitis Discharge Goals Goal(s): Decrease discomfort, Improve function, Increase independence Activity Recommendations Activity Limitations: resume your previous activity . Instructions / Follow-Up Instructions / Follow-Up Infectious Colitis - Infection of Large Intestine: - You will continue on Ciprofloxacin twice a day and Flagyl three times a day to complete a 10 day course. You had one day of treatment in the hospital. -- You had medications today and will need to take only one of Cipro and one of Flagyl this evening of 08/10. - Continue a low fiber diet for the next week Bloody Bowel Movements: - Continue to hold your aspirin until August 13 Current Hospital Diet Patient's current hospital diet: Low Fiber Diet Discharge Diet Recommended Diet: Low Fiber Diet Pending Studies Studies pending at discharge: no Medical Emergencies . Who to Call and When: Medical Emergencies: If at any time you feel your situation is an emergency, please call 911 immediately. . Non-Emergent Contact Non-Emergency issues call your: Primary Care Provider Call Non-Emergent contact if: you have a fever, your pain is concerning you, you have any medication questions . . "Provider Documentation" section prepared by Dai Poole. . VTE Core Measure Inpt VTE Proph given/why not?: SCD's
[2017-08-10 13:55] VITALS: BP 152/84; PULSE 69; TEMP 36.8; O2SAT 95
[2017-08-10] MEDS ORDERED: CIPROFLOXACIN 500 MG TAB PO SCH (20:00)
--- NOTE | 2017-08-10 22:03 | Discharge Summary ---
Discharge Summary Date of Service Aug 10, 2017. Discharge Summary Admission Date: Aug 08, 2017 at 11:30 Discharge Date: Aug 10, 2017 Discharge Disposition: Home Principal Diagnosis: Sepsis 2/2 Pancolitis S/P Colonoscopy, Not a Complication of Care Problems/Secondary Diagnoses: Hx of colonic polyps Dyslipidemia Depression Procedures: ABDOMEN AND PELVIS CT WITH IV AND ORAL CONTRAST FINDINGS: Mild dependent changes seen at the lung bases. No pneumoperitoneum. No pneumatosis. No fractures within the visualized osseous structures. Small hiatus hernia. There are few small hypodense lesions seen within the liver. Dominant lesion within the left hepatic lobe measures 11 mm. These favor small cysts. The spleen, adrenal glands, gallbladder, and pancreas are unremarkable. No retroperitoneal lymphadenopathy. Bilateral peripelvic renal cysts. No hydronephrosis. The bladder, uterus, and bilateral adnexa are unremarkable. Trace pelvic free fluid. Scattered colonic diverticula. Normal appendix. Moderate bowel wall thickening involving the ascending colon and transverse colon. There is also mild thickening of the majority of the descending colon. No dilated loops of bowel to suggest an obstruction. IMPRESSION: 1. Thickening of the majority of the colon as described above. This is consistent with an inflammatory or infectious colitis. 2. No pneumoperitoneum. No pneumatosis. 3. Trace pelvic fluid. 4. Small hiatus hernia. 5. No evidence for bowel obstruction. Consultations: 1. Gastroenterology Medication Reconciliation New Medications: Ciprofloxacin (Ciprofloxacin HCl) 500 Mg Tab 500 MG PO BID, #17 TAB Take one dose this evening of 08/10. Then resume twice a day on 08/11. Metronidazole (Metronidazole) 500 Mg Tab 500 MG PO TID, #25 TAB Take one tablet tonight 08/10. Then resume three times a day on 08/11. Continued Medications: Aspirin (Aspirin Ec) 81 Mg Tab 81 MG PO HS Hold until Aug.13 Citalopram Hydrobromide (Celexa) 40 Mg Tab 40 MG PO QAM Simvastatin (Zocor) 40 Mg Tab 40 MG PO HS Discharge Exam General/Constitutional: Denies fever/chills, fatigue, weakness ENT: Denies visual changes, nasal drainage, hearing loss, sore throat, trouble swallowing Cardiovascular: Denies chest pain, palpitations, edema Respiratory: Denies cough, sputum, SOB, wheezing, orthopnea GI: Denies nausea, vomiting, abdominal pain, constipation, diarrhea, melena/ hematochezia : Denies dysuria, frequency, hematuria Musculoskeletal: Denies joint/muscle aches, weakness, swelling Neurologic: Denies dizziness/lightheadedness, numbness/tingling, weakness Hematologic/Lymphatic: Denies bleeding/clotting abnormalities Skin: Denies rash, itch, new skin changes, easy bruising General Appearance: WDWN in NAD who is A&O x 3 HEENT: Head is normocephalic/atraumatic; Hearing grossly intact; Mucous membranes moist; Pharynx negative for exudate/lesions Neck: Supple; Trachea midline; Neg JVD; Neg lymphadenopathy Heart: RRR with no M/G/R Lungs: CTA in all lung ramos bilaterally; Respirations unlabored; Neg accessory muscle use Abdomen: Soft, non-tender, non-distended; Positive BS x 4 quadrants Extremities: Neg edema Neurological: Speech clear; Neg focal neurologic deficits Psychiatric: Appropriate mood/affect Skin: Normal Color; Warm/Dry Hospital Course ADMISSION: 67 y/o F c/o BRBPR. Pt had a f/u c-scope on 08/[address] Herr. She has a hx of colon polyps and this was a routine f/u. She has no prior hx of GIB and was not having any bleeding prior to her c-scope. She had no abd complaints prior to her c-scope. She had an uneventful c-scope and polyps were removed at that time. She has been having ongoing BRBPR since her c-scope. It is not getting worse, but it is not improving either. She has diffuse abd pain at times as well. No n/v. She did eat normally on after her scope, but not much yesterday and a bowl of cereal today. She has not seen clots, just blood. The blood is independent of stool. She has actually not passed any stool since her c-scope. She has no urinary issues. Pt denies fever, SOB, chest pain, LE pain or swelling. Pt does take a preventive aspirin 81mg at baseline, however this was on hold for her c-scope and she has not resumed use yet. ED physician spoke with Dr. Martinez, who is air traffic control operator for Dr. Herr. Planning for bowel prep and repeat c-scope. HOSPITAL COURSE: Ms. Tao was admitted for Sepsis from Pancolitis S/P Colonoscopy and Polypectomy, that does not appear to be a complication of care. She also presented with BRBPR which has resolved. Likely etiology is infectious as symptoms to not fit with complications of polypectomy. She does report eating eggs after the scope that was not completely cooked? She quickly responded to Cipro and Flagyl and will continue to complete a 10 day course. She is afebrile and without leukocytosis. She is tolerating low residue diet and pain is resolved. She has had multiple bowel movements that are brown in color without visible blood. She was instructed to hold ASA therapy for one week after scope and can resume on 08/13/2017. Total Time Spent: Greater than 30 minutes This includes examination of the patient, discharge planning, medication reconciliation, and communication with other providers. Discharge Instructions Please refer to the electronic Patient Visit Report (Discharge Instructions) for additional information. Additional Copies To Thelma England M.D. Reviewed: Pt Seen/Exam by Me History Physician Program Director Substance Abuse Supervision Note: I interviewed and examined the patient. Discussed with YEVGENIY Poole and agree with findings and plan as documented in the note. Any exceptions or clarifications are listed here: Pt feels great todya, [place]ka low residue diet, no abd pain, no N/V, no further blood in stool. Has some loose stools. Hgb remains stable Vitals reviewed NAD, obese RRR no mgr CTAB no wcr Abd +BS, soft, no TTP Ext no edema 67 yo female with a h/o sessile serrated colon polyps, depression, hyperlipidemia, here with GI bleeding and abdominal pain, with pancolitis, sepsis s/p colonoscopy with polypectomy. C. diff and stool culture negative. leukocytosis resolved, afebrile -hgb with slight drop initially, but has since remained stable -bleeding most likely secondary to either infectious colitis vs ischemic colitis as was painful and given diffuse colon wall thickening on CT; not likely secondary to polypectomy bleeding -complete Cipro and Flagyl for 10 day course -dc to home on low residue diet -f/u with PCP and GI within 1-2 weeks Documented By: Chiquis Lancaster Documented By: Chiquis Lancaster
== END 2017-08-10 14:40 | disposition home or self-care (01) | DRG 872 ==
LOC: C.EDB 09:29 → C.4E 11:30 → ENRESERV 11:45
PROVIDERS: ADMIT Family Medicine; ATTEND Family Medicine
DX: A41.9 Sepsis, unspecified organism (principal); K51.00 Ulcerative (chronic) pancolitis without complications; K91.840 Postprocedural hemorrhage of a digestive system organ or structure following a digestive system procedure; Z87.19 Personal history of other diseases of the digestive system; E78.5 Hyperlipidemia, unspecified; F32.9 Major depressive disorder, single episode, unspecified; Z82.49 Family history of ischemic heart disease and other diseases of the circulatory system

== ENCOUNTER 2022-01-15 13:59 | Inpatient (IN) ==
--- NOTE | 2022-01-15 14:55 | ED Triage Note ---
Date of Service January 15, 2022 History of Present Illness This patient was briefly evaluated while in triage. An abbreviated physical exam was performed. This patient is a 71-year-old Female who presents to the ED for evaluation of dyspnea on exertion and low O2 levels for the past week, sent by PCP. GENERAL: Resting comfortably, in no acute distress CARDIAC: Systolic murmur at pulmonic region. Regular rate and normal rhythm. 1+ pitting edema in bilateral lower extremities SKIN: [place] warm dry no diaphoresis. O2 saturation 88% on room air. Placed on 2L nasal cannula up to 95%. Physical Exam Initial orders for labs and / or imaging were placed and patient was placed in the waiting area until a bed is available. Please see further documentation for the full ED course.
[2022-01-15 15:29] LABS: Basophils # (auto) 0.05 K/uL (0-0.2); Basophils % (auto) 0.5 %; Eosinophils # (auto) 0.12 K/uL (0-0.50); Eosinophils % (auto) 1.2 %; Hematocrit (blood only) 28.5 % (34.1-44.9); Hemoglobin 8.9 g/dl (12.0-16.0); Immature Granulocytes # (auto) 0.16 K/uL (0.00-0.02); Immature Granulocytes % (auto) 1.5 %; Lymphocytes # (auto) 1.73 K/uL (1.2-3.4); Lymphocytes % (auto) 16.7 %; Mean Corpuscular Hemoglobin 33.2 pg (25.0-34.0); Mean Corpuscular Hgb Conc 31.2 g/dL (32.0-36.0); Mean Corpuscular Volume 106.3 fL (80.0-100.0); Mean Platelet Volume 9.3 fL (9.4-12.3); Monocytes # (auto) 0.78 K/uL (0.24-0.82); Monocytes % (auto) 7.5 %; Neutrophils # (auto) 7.52 K/uL (1.4-6.5); Neutrophils % (auto) 72.6 %; Nucleated RBC # (auto) 0.04 K/uL (0-0); Nucleated RBC % (auto) 0.4 %; Platelet Count 481 K/uL (130-400); RDW Coefficient of Variation 16.7 % (11.5-14.5); RDW Standard Deviation 60.5 fL (36.4-46.3); Red Blood Count 2.68 M/uL (3.93-5.22); White Blood Count 10.36 K/ul (4.8-10.8)
[2022-01-15 15:51] LABS: Troponin I High Sensitivity 45.9 pg/ml (0-14)
[2022-01-15 15:55] LABS: Albumin Globulin Ratio 1.3 (0.9-2); Albumin Level 4.1 gm/dl (3.4-5.0); Bilirubin,Total 1.8 mg/dl (0.2-1.0); Calcium 9.4 mg/dl (8.5-10.1); Creatinine Clr Calc Pharmacy 56.3 ml/min; Est GFR (African American) 69.8 ml/min; Est GFR (Non-African American) 60.2 ml/min; Globulin 3.1 gm/dl (2.5-4.0); Potassium 3.9 mmol/L (3.5-5.1); Total Protein 7.2 gm/dl (6.0-8.3)
[2022-01-15 16:00] LABS: D Dimer 7460 ug/L FEU (0-500)
[2022-01-15] MEDS ORDERED: SODIUM CHLORIDE 0.9% 1000ML 1,000 ML IV ONE (16:06)
--- NOTE | 2022-01-15 16:09 | Emergency Department Note ---
Impression & Plan Pulmonary emboli, Elevated troponin, Hypoxia ED Provider Note EvalNAME: ARTHUR BATISTA AGE: 71 SEX: F : 1950 ARRIVES VIA: Walk-In INFORMANT: Patient ED PROVIDER(S): Arturo Looney DO CHIEF COMPLAINT: anxious HPI: Patient is a 71-year-old female who presents the ER for anxiety. Patient saw PCP and was referred in [facility] that showed that she was found to be hypoxic and tachycardic. Denies any headache or change in vision. No chest pain or shortness of breath. No belly pain, nausea, vomiting, or diarrhea. No dysuria, urgency, or frequency. No other exacerbating or remitting factors. She notes that she just feels very anxious. From doctor's office she notes she has been having exertional shortness of breath for the past several days. Denies any recent trips or travel. No history of blood clots. ROS: See above HPI for pertinent positives & negatives. A total of 10 systems reviewed and were otherwise negative. PAST MEDICAL HISTORY:See Below PAST SURGICAL HISTORY:See Below FAMILY HISTORY:See Below SOCIAL HISTORY:See Below HOME MEDICATIONS:See Below ALLERGIES:See Below VITALS:See Below PHYSICAL EXAMINATION: GENERAL: Sitting up in bed, alert, well appearing, well nourished, no distress, non-toxic EYE EXAM: normal conjunctiva. PERRL and EOM's grossly intact. OROPHARYNX: mucous membranes are moist NECK: supple, no nuchal rigidity, no adenopathy, non-tender LUNGS: Clear to auscultation. Normal chest wall mechanics HEART: no murmurs, S1 normal and S2 normal ABDOMEN: abdomen soft, non-tender, normo-active bowel sounds, no masses, no rebound or guarding. UPPER EXTREMITIES: upper extremities are grossly normal. LOWER EXTREMITIES: No pitting edema. Calves are equal bilateral NEURO EXAM: Normal sensorium, cranial nerves II-XII grossly intact, normal speech, no gross weakness of arms, no gross weakness of legs. MEDICAL DECISION MAKING: Patient is a 71-year-old [place] due to high volumes but she was on nasal cannula when she was evaluated. IV was established blood work was obtained. Labs show no significant leukocytosis. There is a mild anemia at 8.9 her baseline of 11 back in 2018. Platelets 481. D-dimer was elevated at 7000. BMP on LFTs was unremarkable. Troponin was detectable at 45. proBNP slightly up at 162. TSH was unremarkable. COVID was negative. Chest x-ray was benign. CT angio of the chest showed extensive bilateral PEs. Rectal exam was performed and negative. She denies any bleeding risk factors. No black stools or dark tarry stools. No coughing up blood. No vomiting blood. No previous brain bleeds. No recent trauma or surgeries. Patient was placed on heparin drip and given a bolus. She was discussed with hospitalist admitted for further work-up. Triage Nursing notes reviewed. Limited review of prior medical records performed Vital Signs: reviewed and remarkable for tachy and hypoxic Differential diagnosis: Differential diagnoses includes but is not limited to pneumonia, bronchitis, COPD/Asthma exacerbation, pneumothorax, pulmonary embolism, congestive heart failure, acute coronary syndrome ER treatment provided: See below Diagnostics interpreted by me: ECG: Sinus rhythm rate 84 Normal axis No PVCs QTC 460 Cardiac Monitoring: An order was placed for continuous cardiac monitoring. The monitor shows a rate of 80 with sinus rhythm. Laboratory studies: As stated above and show below. Imaging studies: CT angio chest shows bilateral PEs Portable AP upright 1 view the chest was unremarkable Consultation(s): With Dr. Luis Daniel Welsh for further evaluation Procedures: none Critical Care: I have personally spent 42 minutes of critical care time in the direct management of this patient. This includes bedside care, interpretation of diagnostic studies, and testing, discussion with consultants, patient, and family members, and other required patient management activities. This 42 minutes is in excess of all separately billable procedures. Past Med/Surg History Medical History (Updated 01/15/22 @ 19:27 by Arturo Looney DO) Chronic low back pain Congenital ptosis of right eyelid NERY (generalized anxiety disorder) GERD (gastroesophageal reflux disease) Hx of colonic polyps Hyperlipidemia Surgical History (Updated 01/15/22 @ 18:23 by Kenneth Welsh) H/O cataract extraction b/l Family History (Updated 01/15/22 @ 18:23 by Kenneth Welsh) Father Myocardial infarction Mother Pancreatitis Denies family history of Deep vein thrombosis Pulmonary embolism Social History (Updated 01/15/22 @ 18:24 by Kenneth Welsh) Smoking Status: Never smoker Hx Alcohol Use: No marital status: Current Living Situation: Family Current Living Situation Comment: in [place] current occupational status: retired How many Children do You have: 2 How many Children do You have Comment: 1 son, 1 daughter Feels Safe at Home: Yes Allergies Allergies Allergy/AdvReac Type Severity Reaction Status Date / Time No Known Allergies Allergy Unverified 01/15/22 18:26 Home Meds Home Medications Medication Instructions Recorded Confirmed alprazolam 0.5 mg tablet 0.5 mg PO DAILY PRN 01/15/22 01/15/22 azelastine 137 mcg (0.1 %) nasal 2 spray INTRANASAL BID PRN 01/15/22 01/15/22 spray aerosol bupropion HCl 150 mg 24 hr tablet, 150 mg PO DAILY 01/15/22 01/15/22 extended release citalopram 40 mg tablet 40 mg PO DAILY 01/15/22 01/15/22 famotidine 20 mg tablet 20 mg PO BID 01/15/22 01/15/22 simvastatin 40 mg tablet 40 mg PO HS 01/15/22 01/15/22 Results & Data (ED) Vital Signs Vital Signs - 24 hr 01/15/22 14:41 01/15/22 17:00 Temperature 36.8 C Temperature Source Temporal Artery Scan Pulse Rate 92 H Pulse Rate [Apical] 75 Pulse Rhythm Regular Pulse Strength Normal Respiratory Rate 22 18 Respiratory Effort / Characteristics Non-Labored Spontaneous Non-Labored Respiratory Depth Normal Normal Blood Pressure 126/74 Blood Pressure [Right Arm] 157/87 H Blood Pressure Mean 91 Blood Pressure Mean [Right Arm] 110 Blood Pressure Position Sitting Pulse Oximetry 88 L 98 Oxygen Delivery Method Room Air Room Air Sepsis Recent Fever Within 48 Hours No Sepsis New/Unexplained Change in Mental Status N/A Sepsis Action Taken by Nursing No Action Required Laboratory Data Result diagrams: 01/15/22 15:11 01/15/22 15:11 Lab Results 01/15/22 01/15/22 01/15/22 Range/Units 15:11 15:11 15:11 WBC 10.36 (4.8-10.8) K/ul RBC 2.68 L (3.93-5.22) M/uL Hgb 8.9 L (12.0-16.0) g/dl Hct 28.5 L (34.1-44.9) % MCV 106.3 H (80.0-100.0) fL MCH 33.2 (25.0-34.0) pg MCHC 31.2 L (32.0-36.0) g/dL RDW Std Deviation 60.5 H (36.4-46.3) fL RDW Coeff of Warren 16.7 H (11.5-14.5) % Plt Count 481 H (130-400) K/uL MPV 9.3 L (9.4-12.3) fL Immature Gran % (Auto) 1.5 % Neut % (Auto) 72.6 % Lymph % (Auto) 16.7 % Norman % (Auto) 7.5 % Eos % (Auto) 1.2 % Baso % (Auto) 0.5 % Neut # (Auto) 7.52 H (1.4-6.5) K/uL Lymph # (Auto) 1.73 (1.2-3.4) K/uL Norman # (Auto) 0.78 (0.24-0.82) K/uL Eos # (Auto) 0.12 (0-0.50) K/uL Baso # (Auto) 0.05 (0-0.2) K/uL Immature Gran # (Auto) 0.16 H (0.00-0.02) K/uL Absolute Nucleated RBC 0.04 H (0-0) K/uL Nucleated RBC % (auto) 0.4 % D-Dimer (0-500) ug/L FEU Sodium 138 (136-145) mmol/L Potassium 3.9 (3.5-5.1) mmol/L Chloride 106 (98-107) mmol/L Carbon Dioxide 26 (21-32) mmol/L Anion Gap 6 (3-11) BUN 15 (6-23) mg/dl Creatinine 0.94 (0.6-1.2) mg/dl Est Cr Clr Drug Dosing 56.3 ml/min Est GFR ( Amer) 69.8 ml/min Est GFR (Non-Af Amer) 60.2 ml/min BUN/Creatinine Ratio 16.0 (10-20) Glucose 121 H (70-99(Fasting)) mg/dl Calcium 9.4 (8.5-10.1) mg/dl Iron (35-150) mcg/dl TIBC (250-450) mcg/dl Unsaturated IBC (155-355) mcg/dl Transferrin % Sat (15-50) % Ferritin (8-388) ng/ml Total Bilirubin 1.8 H (0.2-1.0) mg/dl AST 16 (13-39) U/L ALT 13 (7-52) U/L Alkaline Phosphatase 53 (34-104) U/L Troponin I High Sens 45.9 H (0-14) pg/ml B-Natriuretic Peptide 162 H (0-100) pg/ml Total Protein 7.2 (6.0-8.3) gm/dl Albumin 4.1 (3.4-5.0) gm/dl Globulin 3.1 (2.5-4.0) gm/dl Albumin/Globulin Ratio 1.3 (0.9-2) TSH (0.300-4.500) uIu/ml SARS-CoV-2 (PCR) SARS-CoV-2, RNA, NAAT (NEGATIVE) 01/15/22 01/15/22 01/15/22 Range/Units 15:11 15:11 15:11 WBC (4.8-10.8) K/ul RBC (3.93-5.22) M/uL Hgb (12.0-16.0) g/dl Hct (34.1-44.9) % MCV (80.0-100.0) fL MCH (25.0-34.0) pg MCHC (32.0-36.0) g/dL RDW Std Deviation (36.4-46.3) fL RDW Coeff of Warren (11.5-14.5) % Plt Count (130-400) K/uL MPV (9.4-12.3) fL Immature Gran % (Auto) % Neut % (Auto) % Lymph % (Auto) % Norman % (Auto) % Eos % (Auto) % Baso % (Auto) % Neut # (Auto) (1.4-6.5) K/uL Lymph # (Auto) (1.2-3.4) K/uL Norman # (Auto) (0.24-0.82) K/uL Eos # (Auto) (0-0.50) K/uL Baso # (Auto) (0-0.2) K/uL Immature Gran # (Auto) (0.00-0.02) K/uL Absolute Nucleated RBC (0-0) K/uL Nucleated RBC % (auto) % D-Dimer 7460 H* (0-500) ug/L FEU Sodium (136-145) mmol/L Potassium (3.5-5.1) mmol/L Chloride (98-107) mmol/L Carbon Dioxide (21-32) mmol/L Anion Gap (3-11) BUN (6-23) mg/dl Creatinine (0.6-1.2) mg/dl Est Cr Clr Drug Dosing ml/min Est GFR ( Amer) ml/min Est GFR (Non-Af Amer) ml/min BUN/Creatinine Ratio (10-20) Glucose (70-99(Fasting)) mg/dl Calcium (8.5-10.1) mg/dl Iron 67 (35-150) mcg/dl TIBC 307 (250-450) mcg/dl Unsaturated IBC 240 (155-355) mcg/dl Transferrin % Sat 22 (15-50) % Ferritin 219.5 (8-388) ng/ml Total Bilirubin (0.2-1.0) mg/dl AST (13-39) U/L ALT (7-52) U/L Alkaline Phosphatase (34-104) U/L Troponin I High Sens (0-14) pg/ml B-Natriuretic Peptide (0-100) pg/ml Total Protein (6.0-8.3) gm/dl Albumin (3.4-5.0) gm/dl Globulin (2.5-4.0) gm/dl Albumin/Globulin Ratio (0.9-2) TSH (0.300-4.500) uIu/ml SARS-CoV-2 (PCR) SARS-CoV-2, RNA, NAAT (NEGATIVE) 01/15/22 01/15/22 01/15/22 Range/Units 15:11 16:02 16:25 WBC (4.8-10.8) K/ul RBC (3.93-5.22) M/uL Hgb (12.0-16.0) g/dl Hct (34.1-44.9) % MCV (80.0-100.0) fL MCH (25.0-34.0) pg MCHC (32.0-36.0) g/dL RDW Std Deviation (36.4-46.3) fL RDW Coeff of Warren (11.5-14.5) % Plt Count (130-400) K/uL MPV (9.4-12.3) fL Immature Gran % (Auto) % Neut % (Auto) % Lymph % (Auto) % Norman % (Auto) % Eos % (Auto) % Baso % (Auto) % Neut # (Auto) (1.4-6.5) K/uL Lymph # (Auto) (1.2-3.4) K/uL Norman # (Auto) (0.24-0.82) K/uL Eos # (Auto) (0-0.50) K/uL Baso # (Auto) (0-0.2) K/uL Immature Gran # (Auto) (0.00-0.02) K/uL Absolute Nucleated RBC (0-0) K/uL Nucleated RBC % (auto) % D-Dimer (0-500) ug/L FEU Sodium (136-145) mmol/L Potassium (3.5-5.1) mmol/L Chloride (98-107) mmol/L Carbon Dioxide (21-32) mmol/L Anion Gap (3-11) BUN (6-23) mg/dl Creatinine (0.6-1.2) mg/dl Est Cr Clr Drug Dosing ml/min Est GFR ( Amer) ml/min Est GFR (Non-Af Amer) ml/min BUN/Creatinine Ratio (10-20) Glucose (70-99(Fasting)) mg/dl Calcium (8.5-10.1) mg/dl Iron (35-150) mcg/dl TIBC (250-450) mcg/dl Unsaturated IBC (155-355) mcg/dl Transferrin % Sat (15-50) % Ferritin (8-388) ng/ml Total Bilirubin (0.2-1.0) mg/dl AST (13-39) U/L ALT (7-52) U/L Alkaline Phosphatase (34-104) U/L Troponin I High Sens (0-14) pg/ml B-Natriuretic Peptide (0-100) pg/ml Total Protein (6.0-8.3) gm/dl Albumin (3.4-5.0) gm/dl Globulin (2.5-4.0) gm/dl Albumin/Globulin Ratio (0.9-2) TSH 3.091 (0.300-4.500) uIu/ml SARS-CoV-2 (PCR) Cancelled SARS-CoV-2, RNA, NAAT NEGATIVE (NEGATIVE) Administered Medications Heparin Sodium/Dextrose (Heparin Sodium/Dextrose) 25,000 units in 500 mls @ 24 mls/hr IV .[id number] [facility]; Protocol Stop: 02/14/22 16:59 Last Admin: 01/15/22 17:10 Dose: 1,200 units/hr, 24 mls/hr Documented by: [id number] Cosigned by: [id number] Discontinued Medications Buspirone HCl (Buspirone 5 Mg Tab) 5 mg PO ONE STA Stop: 01/15/22 18:02 Last Admin: 01/15/22 18:48 Dose: 5 mg Documented by: [id number] Heparin Sodium (Porcine) (Heparin Sod (Porcine) 1000 Unit/Ml) 5,000 units IV NOW ONE Stop: 01/15/22 17:01 Last Admin: 01/15/22 17:10 Dose: 5,000 units Documented by: [id number] Cosigned by: [id number] Sodium Chloride (Nss 1000ml) 1,000 mls @ 999 mls/hr IV .[id number] ONE Stop: 01/15/22 17:06 Last Admin: 01/15/22 17:10 Dose: 999 mls/hr Documented by: [id number] Famotidine (Pepcid 20mg Iv Push) 20 mg in 5 mls @ 2.5 mls/min IV NOW STA Stop: 01/15/22 18:17 Last Admin: 01/15/22 18:46 Dose: 2.5 mls/min Documented by: [id number] Ioversol (Optiray 320 125ml) 119 ml IV ONCE ONE Stop: 01/15/22 16:28 Last Admin: 01/15/22 16:28 Dose: 119 ml Documented by: [id number] Imaging Data Radiologist's Impression: Chest X-Ray 01/15/22 14:49 XR chest 1V portable CLINICAL HISTORY: Dyspnea on exertion, low 02 COMPARISON STUDY: Chest radiograph August 08, 2017. FINDINGS: Lung volumes are normal. Lungs are clear. There is no pneumothorax or pleural effusion. Cardiac size is normal. Mediastinal contours are normal. There is no evidence for pulmonary edema. IMPRESSION: No acute cardiopulmonary findings. ACT 112: Negative or not required by law. Electronically signed by: Perry Dai M.D. 01/15/2022 4:19 PM Chest CTA 01/15/22 16:05 CT ANGIOGRAPHY OF THE CHEST, PULMONARY EMBOLUS PROTOCOL CLINICAL HISTORY: Elevated d-dimer. Dyspnea on exertion. COMPARISON STUDY: Chest radiograph performed earlier today. Chest radiograph August 08, 2017. TECHNIQUE: Following IV administration of 119 mL of Optiray, helical axial images of the chest were obtained utilizing the pulmonary embolus protocol. Maximal intensity projections and sagittal and coronal reformats were viewed on an independent 3D workstation. IV contrast was administered without complication. Automated exposure control was utilized for the study. A dose lowering technique was utilized adhering to the principles of ALARA. CT DOSE: 515.22 mGycm FINDINGS: Note is made of extensive bilateral pulmonary emboli. Specifically, there are emboli within the lobar and segmental branches of both lungs. No saddle pulmonary embolus is present. There is mild dilatation of the central pulmonary arteries. No definite CT evidence for right heart strain. Moderate cardiomegaly is noted. No thoracic aortic dissection. Small hiatal hernia is present. No pulmonary infarct is identified. Ground glass opacities with mosaic attenuation within the lungs are noted. Lungs are suboptimally assessed due to respiratory motion. There is no pneumothorax or pleural effusion. A few suspected hepatic cysts measure up to 1.2 cm. IMPRESSION: 1. Extensive bilateral pulmonary emboli, as described above. 2. No pulmonary infarcts. No definite CT evidence for right heart strain. 3. Cardiomegaly. ACT 112: Negative or not required by law. Electronically signed by: Perry Dai M.D. 01/15/2022 4:59 PM Discharge Plan Visit Data Chief Complaint: Referred by Doctor Stated Complaint: REF BY ED Provider: Arturo Looney Discharge Problem: Pulmonary emboli, Elevated troponin, Hypoxia Discharge Instructions Interventions: ED Discharge Assessment Last Done: 01/15/22 19:25 Forms Stand Alone Forms: My [place] Prescriptions Prescriptions: No Action citalopram 40 mg tablet 40 mg PO DAILY RF: 0 simvastatin 40 mg tablet 40 mg PO HS RF: 0 alprazolam 0.5 mg tablet 0.5 mg PO DAILY PRN (Reason: Anxiety) RF: 0 famotidine 20 mg tablet 20 mg PO BID RF: 0 azelastine 137 mcg (0.1 %) aerosol,spray 2 spray INTRANASAL BID PRN (Reason: Nasal Congestion) RF: 0 bupropion HCl 150 mg tablet extended release 24 hr 150 mg PO DAILY RF: 0 Referrals Referrals: Thelma England MD [Primary Care Provider] - Discharge Problem: Pulmonary emboli Qualifiers: Pulmonary embolism type: unspecified Chronicity: acute Acute cor pulmonale presence: unspecified Qualified Code(s): I26.99 - Other pulmonary embolism with out acute cor pulmonale
--- NOTE | 2022-01-15 16:21 | XRay Report ---
XR chest 1V portable CLINICAL HISTORY: Dyspnea on exertion, low 02 COMPARISON STUDY: Chest radiograph August 08, 2017. FINDINGS: Lung volumes are normal. Lungs are clear. There is no pneumothorax or pleural effusion. Car diac size is normal. Mediastinal contours are normal. There is no evidence for pulmonary edema. IMPRESSION: No acute cardiopulmonary findings. ACT 112: Negative or not required by law. Electronically signed by: Perry Dai M.D. 01/15/2022 4:19 PM
[2022-01-15] MEDS ORDERED: OPTIRAY 320 125ml IV ONE (16:27)
[2022-01-15] MEDS ORDERED: Heparin IV Adult Wt-Based Standard WITH Bolus Protocol IV STA (16:36)
[2022-01-15] MEDS ORDERED: HEPARIN SOD (PORCINE) 1000 UNIT/ML IV ONE ×2 (16:52→17:00)
--- NOTE | 2022-01-15 17:01 | CT Scan Report ---
CT ANGIOGRAPHY OF THE CHEST, PULMONARY EMBOLUS PROTOCOL CLINICAL HISTORY: Elevated d-dimer. Dyspnea on exertion. COMPARISON STUDY: Chest radiograph performed earlier today. Chest radiograph August 08, 2017. TECHNIQUE: Following IV administration of 119 mL of Optiray, helical axial images of the chest were o btained utilizing the pulmonary embolus protocol. Maximal intensity projections and sagittal and cor onal reformats were viewed on an independent 3D workstation. IV contrast was administered without co mplication. Automated exposure control was utilized for the study. A dose lowering technique was ut ilized adhering to the principles of ALARA. CT DOSE: 515.22 mGycm FINDINGS: Note is made of extensive bilateral pulmonary emboli. Specifically, there are emboli withi n the lobar and segmental branches of both lungs. No saddle pulmonary embolus is present. There is mi ld dilatation of the central pulmonary arteries. No definite CT evidence for right heart strain. Mode rate cardiomegaly is noted. No thoracic aortic dissection. Small hiatal hernia is present. No pulmona ry infarct is identified. Ground glass opacities with mosaic attenuation within the lungs are noted. Lungs are suboptimally assessed due to respiratory motion. There is no pneumothorax or pleural effusi on. A few suspected hepatic cysts measure up to 1.2 cm. IMPRESSION: 1. Extensive bilateral pulmonary emboli, as described above. 2. No pulmonary infarcts. No definite CT evidence for right heart strain. 3. Cardiomegaly. ACT 112: Negative or not required by law. Electronically signed by: Perry Dai M.D. 01/15/2022 4:59 PM
[2022-01-15] MEDS: HEPARIN SODIUM/DEXTROSE 25,000 UNITS/500 ML BAG IV SCH (17:10)
--- NOTE | 2022-01-15 17:30 | History & Physical Report ---
Date of Service January 15, 2022 Assessment & Plan (1) Pulmonary emboli: Plan: Extensive b/l PEs on CTA chest today. No recent surgery. No recent travel. No personal or family h/o VTE. She does admit to significant sedentary lifestyle and immobility over the last few weeks due to her severe back pain. Thus, this could have cause her event. With that said I cannot rule out another occult process contributing to heightened VTE risk (she has moderate anemia, endorses severe GERD symptoms recently, etc). Plan - * admit to tele * continue standard heparin drip * b/l LE venous dopplers - r/o DVT * investigate cost of DOACs tomorrow * if DOACs too costly then lovenox bridge with coumadin * obtain peripheral smear in am due to macrocytic anemia * consider EGD as outpatient to r/o gastric pathology given her frequent GERD, etc. * check echo in am (2) Acute respiratory failure with hypoxia: Plan: 2nd to b/l PEs. as above in #1. (3) Macrocytic anemia: Plan: B12 level is low-normal. Folate is wnl. TSH is wnl. CBC in am. Supplement B12. Peripheral smear in am -- early MDS? other pathology? Elevated total bili on chemistries today could fit with hemolysis but she otherwise has no features of such. (4) Chronic low back pain: Plan: Check plain films of lumbar spine, r/o compression fracture etc. Consider more advanced imaging if needed. This caused significant immobility over the last month by report. For pain - tylenol prn, norco prn pain. (5) Hyperlipidemia: Plan: Continue statin agent. (6) NERY (generalized anxiety disorder): Plan: Severe. In fact, during the encounter, she was more focused on her NERY than the PEs and other presenting issues. Cont celexa 40mg daily - has been on such for years. Wellbutrin was just started yesterday - hold for now. Xanax was just started yesterday as well - hold. Add buspar 5mg TID. This issue is VERY SEVERE - thus, will place formal consult to psychiatry for med recommendations. Patient has an office visit scheduled with Dr Deluca as outpatient per her . (7) GERD (gastroesophageal reflux disease): Plan: IV pepcid x 1 now, followed by PO protonix 40mg daily. Strongly consider outpatient EGD given the frequency of her symptoms. (8) Insomnia: Plan: Severe. Trial trazodone 25mg HS. (9) Elevated troponin: Plan: 2nd to myocardial demand ischemia in the setting of #1. No evidence of ACS. Echo was ordered but this is mainly to check the right heart, PA pressures, etc. (10) Elevated bilirubin: Plan: At minimum would repeat in 48 hours. If it stays mildly elevated in the absence of elevated direct bilirubin -- Gilbert's? Could consider w/u for hemolysis if anemia worsens. Plan: extensively updated at bedside she will need PT/OT consults during the visit History of Present Illness Chief Complaint: dyspnea on exertion, severe anxiety Primary Care Provider: Thelma England MD 71yo female with h/o generalized anxiety for many years, recent low back pain for several weeks, and multiple psychosocial stressors presents with 1 week of dyspnea on exertion. During this time period she has been feeling very anxious and in fact was prescribed xanax prn and wellbutrin 150mg daily by her PCP for such. She only started the latter yesterday. She has had poor appetite for the last week and attributes this to the anxiety. She thinks she lost weight over the previous few days but isn't sure. Prior to 1-2 weeks ago her anxiety was doing fair and appetite was normal. She mentions that her son just had surgery to remove a benign tumor in his spine, a nephew had a significant bike accident, and a neighbor had a bleeding stroke all of which caused severe anxiety for her. Denies any recent travel or surgery. She does admit to being very sedentary over the last few weeks due to the severity of her back pain. No personal or family h/o VTE. She denies any LE edema or pain. Upon ER presentation today she was noted to be hypoxic with O2 sats of 88% in RA. CTA chest showed extensive b/l pulmonary emboli. Heparin was initiated. Allergies Allergy/AdvReac Type Severity Reaction Status Date / Time No Known Allergies Allergy Unverified 01/15/22 18:26 Home Medications Medication Instructions Recorded Confirmed Type alprazolam 0.5 mg tablet 0.5 mg PO DAILY PRN 01/15/22 01/15/22 History azelastine 137 mcg (0.1 %) nasal 2 spray INTRANASAL BID PRN 01/15/22 01/15/22 History spray aerosol bupropion HCl 150 mg 24 hr tablet, 150 mg PO DAILY 01/15/22 01/15/22 History extended release citalopram 40 mg tablet 40 mg PO DAILY 01/15/22 01/15/22 History famotidine 20 mg tablet 20 mg PO BID 01/15/22 01/15/22 History simvastatin 40 mg tablet 40 mg PO HS 01/15/22 01/15/22 History Past Med/Surg History Medical History (Updated 01/16/22 @ 06:22 by Kenneth Welsh) Chronic low back pain Congenital ptosis of right eyelid NERY (generalized anxiety disorder) GERD (gastroesophageal reflux disease) Hx of colonic polyps Hyperlipidemia Surgical History (Updated 01/15/22 @ 18:23 by Kenneth Welsh) H/O cataract extraction b/l Family History (Updated 01/15/22 @ 18:23 by Kenneth Welsh) Father Myocardial infarction Mother Pancreatitis Denies family history of Deep vein thrombosis Pulmonary embolism Social History (Updated 01/15/22 @ 18:24 by Kenneth Welsh) Smoking Status: Never smoker Hx Alcohol Use: No Hx Substance Use: No Preferred Language: French Communication Ability: Effective Pediatric Geneticist Required: No Beliefs That Will Affect Care: None marital status: Current Living Situation: Spouse Current Living Situation Comment: in [place] current occupational status: retired How many Children do You have: 2 How many Children do You have Comment: 1 son, 1 daughter Other Information That Helps Us Care for You: No Feels Safe at Home: Yes Safety Concerns: Feels Safe At This Time Assistive Devices: Hearing Aid - Bilateral Review of Systems Review of Systems: gen - no fevers, no chills; poor appetite x 1 week; f atigue last few days as well eyes - congenital eyelid ptosis on right; no visual changes HENT - no dysphagia; no sore throat or runny nose neck - denies neck pain cv - no chest pain or pleurisy pulm - no cough; dyspnea and [place] present GI - no abd pain, nausea or emesis but frequent heartburn symptoms; no blood per rectum - no hematuria musculo - acute/chronic low back pain; acute pain x 1 month, improving however endo - denies diabetes skin - no rashes neuro - denies focal motor weakness or paresthesias psych - depression, anxiety, and insomnia Physical Exam Physical Exam: gen - very anxious, otherwise NAD eyes - PERRL; right eye ptosis HENT - b/l hearing aids in place; mouth with MMM neck - no JVD, no masses heart - RRR, s1 s2, no murmur lungs - CTA b/l, no rales abd - soft NT ND BS+; no HSM ext - left thigh/leg look modestly larger than right leg; trace edema b/l; pulses 2+ b/l lymph - no cervical lymph nodes b/l neuro - strength 5/5 x 4 exts, DTRs brisk 3+ b/l upper and lower extremities psych - very anxious, slightly confused? musculo - tender to palpation at the lumbosacral junction, no deformities Results & Data Results & Data ([facility]) Vital Signs (Past 12 Hours) Vital Signs Temp Pulse Resp BP Pulse Ox 01/15/22 14:41 36.8 C 92 H 22 126/74 88 L Laboratory Results Laboratory Results - last 24 hr 01/15/22 01/15/22 01/15/22 15:11 15:11 15:11 WBC 10.36 RBC 2.68 L Hgb 8.9 L Hct 28.5 L MCV 106.3 H MCH 33.2 MCHC 31.2 L RDW Std Deviation 60.5 H RDW Coeff of Warren 16.7 H Plt Count 481 H MPV 9.3 L Immature Gran % (Auto) 1.5 Neut % (Auto) 72.6 Lymph % (Auto) 16.7 Hickman % (Auto) 7.5 Eos % (Auto) 1.2 Baso % (Auto) 0.5 Neut # (Auto) 7.52 H Lymph # (Auto) 1.73 Hickman # (Auto) 0.78 Eos # (Auto) 0.12 Baso # (Auto) 0.05 Immature Gran # (Auto) 0.16 H Absolute Nucleated RBC 0.04 H Nucleated RBC % (auto) 0.4 D-Dimer Sodium 138 Potassium 3.9 Chloride 106 Carbon Dioxide 26 Anion Gap 6 BUN 15 Creatinine 0.94 Est Cr Clr Drug Dosing 56.3 Est GFR ( Amer) 69.8 Est GFR (Non-Af Amer) 60.2 BUN/Creatinine Ratio 16.0 Glucose 121 H Calcium 9.4 Iron TIBC Unsaturated IBC Transferrin % Sat Ferritin Total Bilirubin 1.8 H AST 16 ALT 13 Alkaline Phosphatase 53 Troponin I High Sens 45.9 H B-Natriuretic Peptide 162 H Total Protein 7.2 Albumin 4.1 Globulin 3.1 Albumin/Globulin Ratio 1.3 Vitamin B12 Folate TSH SARS-CoV-2 (PCR) SARS-CoV-2, RNA, NAAT 01/15/22 01/15/22 01/15/22 15:11 15:11 15:11 WBC RBC Hgb Hct MCV MCH MCHC RDW Std Deviation RDW Coeff of Warren Plt Count MPV Immature Gran % (Auto) Neut % (Auto) Lymph % (Auto) Hickman % (Auto) Eos % (Auto) Baso % (Auto) Neut # (Auto) Lymph # (Auto) Hickman # (Auto) Eos # (Auto) Baso # (Auto) Immature Gran # (Auto) Absolute Nucleated RBC Nucleated RBC % (auto) D-Dimer 7460 H* Sodium Potassium Chloride Carbon Dioxide Anion Gap BUN Creatinine Est Cr Clr Drug Dosing Est GFR ( Amer) Est GFR (Non-Af Amer) BUN/Creatinine Ratio Glucose Calcium Iron Pending TIBC Pending Unsaturated IBC Pending Transferrin % Sat Pending Ferritin Pending Total Bilirubin AST ALT Alkaline Phosphatase Troponin I High Sens B-Natriuretic Peptide Total Protein Albumin Globulin Albumin/Globulin Ratio Vitamin B12 Folate TSH SARS-CoV-2 (PCR) SARS-CoV-2, RNA, NAAT 01/15/22 01/15/22 01/15/22 15:11 15:11 16:02 WBC RBC Hgb Hct MCV MCH MCHC RDW Std Deviation RDW Coeff of Warren Plt Count MPV Immature Gran % (Auto) Neut % (Auto) Lymph % (Auto) Hickman % (Auto) Eos % (Auto) Baso % (Auto) Neut # (Auto) Lymph # (Auto) Hickman # (Auto) Eos # (Auto) Baso # (Auto) Immature Gran # (Auto) Absolute Nucleated RBC Nucleated RBC % (auto) D-Dimer Sodium Potassium Chloride Carbon Dioxide Anion Gap BUN Creatinine Est Cr Clr Drug Dosing Est GFR ( Amer) Est GFR (Non-Af Amer) BUN/Creatinine Ratio Glucose Calcium Iron TIBC Unsaturated IBC Transferrin % Sat Ferritin Total Bilirubin AST ALT Alkaline Phosphatase Troponin I High Sens B-Natriuretic Peptide Total Protein Albumin Globulin Albumin/Globulin Ratio Vitamin B12 Pending Folate Pending TSH Pending SARS-CoV-2 (PCR) Cancelled SARS-CoV-2, RNA, NAAT 01/15/22 16:25 WBC RBC Hgb Hct MCV MCH MCHC RDW Std Deviation RDW Coeff of Warren Plt Count MPV Immature Gran % (Auto) Neut % (Auto) Lymph % (Auto) Hickman % (Auto) Eos % (Auto) Baso % (Auto) Neut # (Auto) Lymph # (Auto) Hickman # (Auto) Eos # (Auto) Baso # (Auto) Immature Gran # (Auto) Absolute Nucleated RBC Nucleated RBC % (auto) D-Dimer Sodium Potassium Chloride Carbon Dioxide Anion Gap BUN Creatinine Est Cr Clr Drug Dosing Est GFR ( Amer) Est GFR (Non-Af Amer) BUN/Creatinine Ratio Glucose Calcium Iron TIBC Unsaturated IBC Transferrin % Sat Ferritin Total Bilirubin AST ALT Alkaline Phosphatase Troponin I High Sens B-Natriuretic Peptide Total Protein Albumin Globulin Albumin/Globulin Ratio Vitamin B12 Folate TSH SARS-CoV-2 (PCR) SARS-CoV-2, RNA, NAAT NEGATIVE Diagnostic Findings Chest X-Ray 01/15/22 14:49 XR chest 1V portable CLINICAL HISTORY: Dyspnea on exertion, low 02 COMPARISON STUDY: Chest radiograph August 08, 2017. FINDINGS: Lung volumes are normal. Lungs are clear. There is no pneumothorax or pleural effusion. Cardiac size is normal. Mediastinal contours are normal. There is no evidence for pulmonary edema. IMPRESSION: No acute cardiopulmonary findings. ACT 112: Negative or not required by law. Electronically signed by: Perry Dai M.D. 01/15/2022 4:19 PM Chest CTA 01/15/22 16:05 CT ANGIOGRAPHY OF THE CHEST, PULMONARY EMBOLUS PROTOCOL CLINICAL HISTORY: Elevated d-dimer. Dyspnea on exertion. COMPARISON STUDY: Chest radiograph performed earlier today. Chest radiograph August 08, 2017. TECHNIQUE: Following IV administration of 119 mL of Optiray, helical axial images of the chest were obtained utilizing the pulmonary embolus protocol. Maximal intensity projections and sagittal and coronal reformats were viewed on an independent 3D workstation. IV contrast was administered without complicat ion. Automated exposure control was utilized for the study. A dose lowering technique was utilized adhering to the principles of ALARA. CT DOSE: 515.22 mGycm FINDINGS: Note is made of extensive bilateral pulmonary emboli. Specifically, there are emboli within the lobar and segmental branches of both lungs. No saddle pulmonary embolus is present. There is mild dilatation of the central p ulmonary arteries. No definite CT evidence for right heart strain. Moderate cardiomegaly is noted. No thoracic aortic dissection. Small hiatal hernia is present. No pulmonary infarct is identified. Ground glass opacities with mosaic attenuation within the lungs are noted. Lungs are suboptimally assessed due to respiratory motion. There is no pneumothorax or pleural effusion. A few suspected hepatic cysts measure up to 1.2 cm. IMPRESSION: 1. Extensive bilateral pulmonary emboli, as described above. 2. No pulmonary infarcts. No definite CT evidence for right heart strain. 3. Cardiomegaly. ACT 112: Negative or not required by law. Electronically signed by: Perry Dai M.D. 01/15/2022 4:59 PM Code Status & VTE Plan Code Status full PG Care Time/CCT Total # of Minutes Spent Total Time Spent with Patient: Total time spent is greater than 50% in coordination of care (as documented) at patient's floor/unit and/or counseling patient: Coding Level of Care Code 83258 Initial Inpt Care Lvl 3 Diagnoses Pulmonary emboli I26.99 Acute respiratory failure with hypoxia J96.01 Macrocytic anemia D53.9 Chronic low back pain M54.50; G89.29 Hyperlipidemia E78.5 NERY (generalized anxiety disorder) F41.1 GERD (gastroesophageal reflux disease) K21.9 Insomnia G47.00 Elevated troponin R77.8 Elevated bilirubin R17
[2022-01-15] MEDS ORDERED: busPIRone 5 MG TAB PO STA (18:01)
[2022-01-15] MEDS ORDERED: FAMOTIDINE 20MG IV PUSH 20 MG/5 ML SYR IV STA (18:16)
[2022-01-15 18:55] LABS: Iron 67 mcg/dl (35-150); Total Iron Binding Cap Calc 307 mcg/dl (250-450); Transferrin (FE) Percent Satur 22 % (15-50); Unsaturated Iron Binding Cap 240 mcg/dl (155-355)
--- NOTE | 2022-01-15 19:36 | XRay Report ---
XR lumbar spine 2-3V CLINICAL HISTORY: recent severe low back pain COMPARISON STUDY: CT of the abdomen and pelvis August 08, 2017. FINDINGS: Contrast within the bladder and collecting systems is from recent contrast-enhanced CT. Al ignment of the lumbar spine is anatomic. Vertebral body heights are maintained. No fracture is noted. Severe disc space narrowing with osteophytosis at L5-S1 is again noted. Otherwise, mild multilevel d isc space narrowing is noted. IMPRESSION: 1. No acute lumbar spine fracture or subluxation. 2. Severe disc space narrowing at L5-S1 with osteophytosis. Otherwise, mild multilevel disc space joan rowing. 3. Moderate multilevel facet arthrosis. ACT 112: Negative or not required by law. Electronically signed by: Perry Dai M.D. 01/15/2022 7:35 PM
[2022-01-15 19:40] LABS: Folate (Folic Acid) > 22.30 ng/ml (>5.38)
[2022-01-15 19:41] LABS: Vitamin B12 381 pg/ml (180-914)
--- NOTE | 2022-01-15 19:58 | Ultrasound Report ---
BILATERAL LOWER EXTREMITY VENOUS DOPPLER CLINICAL HISTORY: b/l PEs; assess for DVT either leg COMPARISON STUDY: No previous studies for comparison. TECHNIQUE: Sonography of the deep venous system of the bilateral lower extremities was performed. Co mpression and augmentation were evaluated. FINDINGS: There is no deep venous thrombus within the right lower extremity. Note is made of deep tita ous thrombus within the left gastrocnemius vein which extends from the popliteal fossa to mid calf. IMPRESSION: 1. Deep venous thrombus within the left gastrocnemius vein which extends from the popliteal fossa to mid calf. 2. No deep venous thrombus within the right lower extremity. ACT 112: Negative or not required by law. Electronically signed by: Perry Dai M.D. 01/15/2022 7:57 PM
[2022-01-15] MEDS ORDERED: SODIUM CHLORIDE 0.9% 1000ML 1,000 ML IV SCH (20:00)
[2022-01-15] MEDS ORDERED: HYDROCODONE/ACETAMOPHEN 5/325MG TAB PO PRN (20:00)
[2022-01-15] MEDS ORDERED: ONDANSETRON INJ 2 MG/ML 2 ML VIAL IV PRN (20:00)
[2022-01-15] MEDS ORDERED: ACETAMINOPHEN 325 MG TAB PO PRN (20:00)
[2022-01-15] MEDS: SIMVASTATIN 40 MG TAB PO SCH (21:31)
[2022-01-15] MEDS: busPIRone 5 MG TAB PO SCH (21:31)
[2022-01-15] MEDS: traZODone HCL 50 MG TAB PO SCH (21:35)
[2022-01-16 00:15] LABS: Partial Thromboplastin Ratio 2.1; Partial Thromboplastin Time 58.7 Seconds (21.0-31.0)
[2022-01-16] MEDS: CYANOCOBALAMIN (B-12) 500 MCG TABLET PO SCH (07:05)
[2022-01-16] MEDS: PANTOprazole 40 MG TAB PO SCH (07:05)
[2022-01-16] MEDS: busPIRone 5 MG TAB PO SCH ×3 (07:06→20:01)
[2022-01-16 07:40] LABS: Hematocrit (blood only) 25.3 % (34.1-44.9); Hemoglobin 7.7 g/dl (12.0-16.0); Mean Corpuscular Hemoglobin 33.2 pg (25.0-34.0); Mean Corpuscular Hgb Conc 30.4 g/dL (32.0-36.0); Mean Corpuscular Volume 109.1 fL (80.0-100.0); Mean Platelet Volume 9.5 fL (9.4-12.3); Nucleated RBC # (auto) 0.02 K/uL (0-0); Nucleated RBC % (auto) 0.2 %; Platelet Count 412 K/uL (130-400); RDW Coefficient of Variation 16.8 % (11.5-14.5); RDW Standard Deviation 63.2 fL (36.4-46.3); Red Blood Count 2.32 M/uL (3.93-5.22); White Blood Count 8.59 K/ul (4.8-10.8)
[2022-01-16 07:56] LABS: BUN Creatinine Ratio 14.3 (10-20); Calcium 8.2 mg/dl (8.5-10.1); Creatinine Clr Calc Pharmacy 69.3 ml/min; Est GFR (African American) 88.8 ml/min; Est GFR (Non-African American) 76.6 ml/min; Magnesium 2.2 mg/dl (1.7-2.4); Potassium 3.8 mmol/L (3.5-5.1)
[2022-01-16 08:18] LABS: Partial Thromboplastin Time 55.1 Seconds (21.0-31.0)
[2022-01-16] MEDS ORDERED: CITALOPRAM 40 MG TAB PO SCH (09:00)
[2022-01-16] MEDS: FAMOTIDINE 20 MG TAB PO SCH (11:03)
--- NOTE | 2022-01-16 11:11 | Hospitalist Progress Note ---
Date of Service January 16, 2022 Assessment & Plan (1) Pulmonary emboli: Plan: Extensive b/l PEs on CTA chest - continue standard heparin drip - b/l LE venous dopplers obtained - positive DVT in LLE - Will d/w transitional care RN cost of DOACs for patient - peripheral smear ordered due to macrocytic anemia - Echo ordered, results pending (2) Acute respiratory failure with hypoxia: Plan: - Secondary to b/l PEs--continue supplemental O2 - 2 step in AM (3) Macrocytic anemia: Plan: - B12 level is low-normal. - Folate/TSH is wnl. - Supplement B12. - Peripheral smear ordered/pending - Elevated TB on chemistries 01/15 could fit with hemolysis but she otherwise has no features of such - Will check serum LDH, haptoglobin, and repeat cbc @ 1600 (4) Chronic low back pain: Plan: - This caused significant immobility over the last month by report. - For pain - tylenol prn, norco prn pain - Lumbar xray-severe disc space narrowing L5-S1 with osteophytosis, multilevel disc space narrowing - Would consider referral to Dr. Constantino for f/u (5) Hyperlipidemia: Plan: - Continue statin agent (6) NERY (generalized anxiety disorder): Plan: Severe. - In fact, during the encounter, she was more focused on her NERY than the PEs and other presenting issues. - Cont celexa 40mg daily - has been on such for years. - Wellbutrin & Xanax was just started 01/14 - hold for now. - Admitting physician added buspar 5mg TID w/ consult to psychiatry for med recommendations. Patient has an office visit scheduled with Dr Deluca as outpatient per her . (7) GERD (gastroesophageal reflux disease): Plan: - Given IV pepcid x 1 on 01/15, followed by PO protonix 40mg daily. - Consider outpatient EGD given the frequency of her symptoms once acute issues resolved - Takes Pepcid at home, will resume 20mg daily (8) Insomnia: Plan: - Severe, trial trazodone 25mg HS. (9) Elevated troponin: Plan: - Secondary to myocardial demand ischemia in the setting of b/l PEs - No evidence of ACS. - Echo has been ordered to eval for right heart strain (10) Elevated bilirubin: Plan: - At minimum would repeat in 48 hours. - If it stays mildly elevated in the absence of elevated direct bilirubin -- Gilbert's? - Could consider w/u for hemolysis if anemia worsens. Plan: As above. Plan to monitor additional day today given drop in hgb. Repeat bloodwork this afternoon. Transitional care RN to look into DOAC cost. 2-step for home O2 qualification. Plan to be d/w Dr. Rolando Meehan, further orders as warranted. Admission and Anticipated Discharge Date Admission Date: January 15, 2022 Subjective Patient was seen on daily rounds this morning. She is resting comfortably in bed, only c/o heartburn currently, takes Pepcid at home which was not ordered here. No longer feels short of breath, denies chest pain. She denies dizziness, lightheadedness, palpitations. No n/v. Had a BM this AM. No BRBPR or melena. Pt hospitalized yesterday for bilateral PEs with associated hypoxia, still requiring O2 (which she does not wear at home). Started on Heparin gtt. No prior h/o DVT/PE. Is sedentary most of the time. No blood dyscrasias to her knowledge. Denies recent long trips in a car/plane or recent surgeries. No other issues verbalized by pt director decision support. Review of Systems Review of Systems: All systems reviewed and are unremarkable except as noted in HPI and below. Denies fever, chills, fatigue, headache, nasal congestion, sore throat, cough, chest pain, shortness of breath, palpitations, orthopnea, PND, abdominal pain, n/v/d, constipation, dysuria, hematuria, frequency, back pain, joint pain or swelling, easy bruising or bleeding, skin lesions or rashes. Physical Exam Physical Exam: GENERAL: 71 yo Well-developed, well-nourished WF. NAD. LUNGS: Clear to auscultation bilaterally. No accessory muscle use. No W/R/R. CARDIOVASCULAR: Regular rate and rhythm. ABDOMEN: Soft, non-tender and non-distended. BS normoactive x 4 quad. Rectal exam: stool heme negative EXTREMITIES: No edema. Non-tender. Peripheral pulses +2/4. NEUROLOGIC: A&O x3. PSYCHIATRIC: Cooperative. Appropriate mood and affect. SKIN: Warm, dry, intact. No rashes or lesions. Results & Data Results & Data ([facility]) Vital Signs (Past 12 Hours) Vital Signs Temp Pulse Pulse Resp BP Pulse Ox 01/16/22 07:23 66 01/16/22 06:52 36.6 C 90 18 164/71 H 92 01/16/22 02:46 36.5 C 70 18 124/68 98 01/15/22 23:07 80 Laboratory Results 01/16/22 07:09 01/16/22 07:09 Diagnostic Findings BILATERAL LOWER EXTREMITY VENOUS DOPPLER CLINICAL HISTORY: b/l PEs; assess for DVT either leg COMPARISON STUDY: No previous studies for comparison. TECHNIQUE: Sonography of the deep venous system of the bilateral lower extremi ties was performed. Compression and augmentation were evaluated. FINDINGS: There is no deep venous thrombus within the right lower extremity. Note is made of deep venous thrombus within the left gastrocnemius vein which extends from the popliteal fossa to mid calf. IMPRESSION: 1. Deep venous thrombus within the left gastrocnemius vein which extends from the popliteal fossa to mid calf. 2. No deep venous thrombus within the right lower extremity. PG Care Time/CCT Total # of Minutes Spent Total Time Spent with Patient: Total time spent is greater than 50% in coordination of care (as documented) at patient's floor/unit and/or counseling patient: Coding Level of Care Code 00589 Subseq Hosp Care Lvl 3 Diagnoses Pulmonary emboli I26.99 Acute cor pulmonale presence: unspecified Chronicity: acute Pulmonary embolism type: unspecified Acute respiratory failure with hypoxia J96.01 Macrocytic anemia D53.9 Chronic low back pain M54.50; G89.29 Hyperlipidemia E78.5 NERY (generalized anxiety disorder) F41.1 GERD (gastroesophageal reflux disease) K21.9 Insomnia G47.00 Elevated troponin R77.8 Elevated bilirubin R17 (1) Pulmonary emboli Acute cor pulmonale presence: unspecified Chronicity: acute Pulmonary embolism type: unspecified Qualified Code(s): I26.99 - Other pulmonary embolism without acute cor pulmonale
[2022-01-16] MEDS: HEPARIN SODIUM/DEXTROSE 25,000 UNITS/500 ML BAG IV SCH (12:59)
--- NOTE | 2022-01-16 13:00 | XCELERA ---
[id number]
--- NOTE | 2022-01-16 16:32 | Psychiatric Consultation ---
Date of Consultation January 16, 2022 Impression / Recommendations Impression 71 yo female with hx of anxiety and now depression with worsening in past few weeks now complicated by pulmonary emb. also adding to fears of dying, interfering with sleep. Longstanding rx of Celexa, recently tried on Xanax prn and Wellbutrin. (1) Major depression: (2) Generalized anxiety disorder: reviewed FDA warnings re: qtc with patient for Celexa dosing over 40 mg. She is agreeable to cross taper to Lexapro. There is no set way but generally cut dose in half while starting 1/2 of new agent so 20 mg Celexa + Lexapro 5 mg for 5-7 days (can be faster if in house), then 10 mg Celexa +10 mg Lexapro for 5-7 days, then d/c Celexa. May benefit from sleep aide in the interim. I typically try to avoid benzos in patients over 65 yo due to fall risk. Recs. reviewed with hospitalist. Psych History Identifying Data 71 yo female admit 01/15 for pulmonary emboli, consult is by hospitalist service for severe anxiety. Chief Complaint "I'm afraid of dying, please stay with me". History of Present Illness as per liaison on 01/15/22: Met with patient and regarding psych consult. PHQ9 22 and denies thinking she would be better off , "I am so afraid of dying, please don't let me !" She reports excessive worrying and trouble sleeping. Her at bedside disagrees she has trouble sleeping and states she sleeps too much. Patient states in the past month her son had a tumor removed, her nephew with a bicycle accident and face injury, and her neighbor with an accident leading to coma and . She states she no longer works and has friends or hobbies and now becomes jealous of her who goes fly fishing and other things sometimes. She had one previous admission over 25 years ago to psych floor. She denies SI, HI, AVH. She is hopeful for medicine rec ommendations however is followed by [facility] and PCP and just had recommendations made with follow up appt in February. She has been on 40 mg Celexa for many years, and "feels her body got used to it," a week ago she was started on 0.5 mg xanax BID PRN and has been using it BID, and yesterday started 150mg Wellbutrin Daily. She is upset it will take two weeks for her to possibly start feeling better on the new medicines as she does not like feeling this way. Today she confirms she is feeling the same if not worse. She worries that she won't be able to sleep. She confirms she will be seeing Dr. Deluca for the first time and she is hopeful as he "did wonders for my sister." apparently admitted to giving 2 Xanax sometimes to help sleep. Only took 1 dose of Wellbutrin. She endorses all 3s on PHQ-9 except 2 for moving slowly and 0 on #9. She again denies suicidal ideation. As far as past psychiatric history, she was inpatient [facility] 25 years ago. Family hx: mother had depression. Allergies Allergy/AdvReac Type Severity Reaction Status Date / Time No Known Allergies Allergy Unverified 01/15/22 18:26 Home Medications Medication Instructions Recorded Confirmed Type alprazolam 0.5 mg tablet 0.5 mg PO DAILY PRN 01/15/22 01/15/22 History azelastine 137 mcg (0.1 %) nasal 2 spray INTRANASAL BID PRN 01/15/22 01/15/22 History spray aerosol bupropion HCl 150 mg 24 hr tablet, 150 mg PO DAILY 01/15/22 01/15/22 History extended release citalopram 40 mg tablet 40 mg PO DAILY 01/15/22 01/15/22 History famotidine 20 mg tablet 20 mg PO BID 01/15/22 01/15/22 History simvastatin 40 mg tablet 40 mg PO HS 01/15/22 01/15/22 History Personal History Beliefs That Will Affect Care: None Patient History Medical History Chronic low back pain Congenital ptosis of right eyelid NERY (generalized anxiety disorder) GERD (gastroesophageal reflux disease) Hx of colonic polyps Hyperlipidemia Surgical History H/O cataract extraction b/l Family History Father Myocardial infarction Mother Pancreatitis Denies family history of Deep vein thrombosis Pulmonary embolism Social History Smoking Status: Never smoker Hx Alcohol Use: No Hx Substance Use: No Preferred Language: Setswana Communication Ability: Effective [employer] Supervisor Required: No Beliefs That Will Affect Care: None marital status: Current Living Situation: Spouse Current Living Situation Comment: in [place] current occupational status: retired How many Children do You have: 2 How many Children do You have Comment: 1 son, 1 daughter Other Information That Helps Us Care for You: No Feels Safe at Home: Yes Safety Concerns: Feels Safe At This Time Assistive Devices: None Physical Exam Psychiatric: Orientation: alert and oriented x 3 Apperance: appropriately dressed and appropriately groomed Eye Contact: good eye contact Motor Behavior: no abnormal motor movements Speech: normal rate/rhythm/volume of speech Affect: + depressed affect Mood: + depressed mood and + anxious mood Thought Process: goal directed thought process Thought Content: reality based without delusions Suicidal Thoughts: denies suicidal thoughts Homicidal Thoughts: denies homicidal thoughts Hallucinations: no auditory hallucinations and no visual hallucinations Cognition: attention grossly intact and language grossly intact Estimated Intelligence: consistent with education level Insight: + limited insight Judgement: + limited judgement Vital Signs (Past 24 Hours): Last Vital Signs Temp 37 C 01/16/22 14:58 Pulse 77 01/16/22 15:16 Resp 18 01/16/22 14:58 BP 148/80 H 01/16/22 14:58 Pulse Ox 98 01/16/22 14:58 Review of Systems All systems reviewed & are unremarkable except as noted in HPI & below Results & Data (PSY) Laboratory Results 01/16/22 01/16/22 01/16/22 Range/Units 16:07 16:07 16:07 WBC Pending (4.8-10.8) K/ul RBC Pending (3.93-5.22) M/uL Hgb Pending (12.0-16.0) g/dl Hct Pending (34.1-44.9) % MCV Pending (80.0-100.0) fL MCH Pending (25.0-34.0) pg MCHC Pending (32.0-36.0) g/dL RDW Std Deviation (36.4-46.3) fL RDW Coeff of Warren (11.5-14.5) % Plt Count Pending (130-400) K/uL MPV (9.4-12.3) fL Absolute Nucleated RBC (0-0) K/uL Nucleated RBC % (auto) % Peripher Smr Path Cons Haptoglobin Pending APTT (21.0-31.0) Seconds PTT Ratio Sodium (136-145) mmol/L Potassium (3.5-5.1) mmol/L Chloride (98-107) mmol/L Carbon Dioxide (21-32) mmol/L Anion Gap (3-11) BUN (6-23) mg/dl Creatinine (0.6-1.2) mg/dl Est Cr Clr Drug Dosing ml/min Est GFR ( Amer) ml/min Est GFR (Non-Af Amer) ml/min BUN/Creatinine Ratio (10-20) Glucose (70-99(Fasting)) mg/dl Calcium (8.5-10.1) mg/dl Magnesium (1.7-2.4) mg/dl Iron (35-150) mcg/dl TIBC (250-450) mcg/dl Unsaturated IBC (155-355) mcg/dl Transferrin % Sat (15-50) % Ferritin (8-388) ng/ml Total Bilirubin Lactate Dehydrogenase Pending Vitamin B12 (180-914) pg/ml Folate (>5.38) ng/ml TSH (0.300-4.500) uIu/ml Stool Occult Bld Scrn (Negative) 01/16/22 01/16/22 01/16/22 Range/Units 16:07 09:13 07:09 WBC (4.8-10.8) K/ul RBC (3.93-5.22) M/uL Hgb (12.0-16.0) g/dl Hct (34.1-44.9) % MCV (80.0-100.0) fL MCH (25.0-34.0) pg MCHC (32.0-36.0) g/dL RDW Std Deviation (36.4-46.3) fL RDW Coeff of Warren (11.5-14.5) % Plt Count (130-400) K/uL MPV (9.4-12.3) fL Absolute Nucleated RBC (0-0) K/uL Nucleated RBC % (auto) % Peripher Smr Path Cons Haptoglobin APTT 55.1 H* (21.0-31.0) Seconds PTT Ratio 2.0 Sodium (136-145) mmol/L Potassium (3.5-5.1) mmol/L Chloride (98-107) mmol/L Carbon Dioxide (21-32) mmol/L Anion Gap (3-11) BUN (6-23) mg/dl Creatinine (0.6-1.2) mg/dl Est Cr Clr Drug Dosing ml/min Est GFR ( Amer) ml/min Est GFR (Non-Af Amer) ml/min BUN/Creatinine Ratio (10-20) Glucose (70-99(Fasting)) mg/dl Calcium (8.5-10.1) mg/dl Magnesium (1.7-2.4) mg/dl Iron (35-150) mcg/dl TIBC (250-450) mcg/dl Unsaturated IBC (155-355) mcg/dl Transferrin % Sat (15-50) % Ferritin (8-388) ng/ml Total Bilirubin Pending Lactate Dehydrogenase Vitamin B12 (180-914) pg/ml Folate (>5.38) ng/ml TSH (0.300-4.500) uIu/ml Stool Occult Bld Scrn Negative (Negative) 01/16/22 01/16/22 01/15/22 Range/Units 07:09 07:09 23:11 WBC 8.59 (4.8-10.8) K/ul RBC 2.32 L (3.93-5.22) M/uL Hgb 7.7 L (12.0-16.0) g/dl Hct 25.3 L (34.1-44.9) % MCV 109.1 H (80.0-100.0) fL MCH 33.2 (25.0-34.0) pg MCHC 30.4 L (32.0-36.0) g/dL RDW Std Deviation 63.2 H (36.4-46.3) fL RDW Coeff of Warren 16.8 H (11.5-14.5) % Plt Count 412 H (130-400) K/uL MPV 9.5 (9.4-12.3) fL Absolute Nucleated RBC 0.02 H (0-0) K/uL Nucleated RBC % (auto) 0.2 % Peripher Smr Path Cons Haptoglobin APTT 58.7 H* (21.0-31.0) Seconds PTT Ratio 2.1 Sodium 139 (136-145) mmol/L Potassium 3.8 (3.5-5.1) mmol/L Chloride 109 H (98-107) mmol/L Carbon Dioxide 26 (21-32) mmol/L Anion Gap 4 (3-11) BUN 11 (6-23) mg/dl Creatinine 0.77 (0.6-1.2) mg/dl Est Cr Clr Drug Dosing 69.3 ml/min Est GFR ( Amer) 88.8 ml/min Est GFR (Non-Af Amer) 76.6 ml/min BUN/Creatinine Ratio 14.3 (10-20) Glucose 102 H (70-99(Fasting)) mg/dl Calcium 8.2 L (8.5-10.1) mg/dl Magnesium 2.2 (1.7-2.4) mg/dl Iron (35-150) mcg/dl TIBC (250-450) mcg/dl Unsaturated IBC (155-355) mcg/dl Transferrin % Sat (15-50) % Ferritin (8-388) ng/ml Total Bilirubin Lactate Dehydrogenase Vitamin B12 (180-914) pg/ml Folate (>5.38) ng/ml TSH (0.300-4.500) uIu/ml Stool Occult Bld Scrn (Negative) 01/15/22 01/15/22 01/15/22 Range/Units 15:11 15:11 15:11 WBC (4.8-10.8) K/ul RBC (3.93-5.22) M/uL Hgb (12.0-16.0) g/dl Hct (34.1-44.9) % MCV (80.0-100.0) fL MCH (25.0-34.0) pg MCHC (32.0-36.0) g/dL RDW Std Deviation (36.4-46.3) fL RDW Coeff of Warren (11.5-14.5) % Plt Count (130-400) K/uL MPV (9.4-12.3) fL Absolute Nucleated RBC (0-0) K/uL Nucleated RBC % (auto) % Peripher Smr Path Cons Haptoglobin APTT (21.0-31.0) Seconds PTT Ratio Sodium (136-145) mmol/L Potassium (3.5-5.1) mmol/L Chloride (98-107) mmol/L Carbon Dioxide (21-32) mmol/L Anion Gap (3-11) BUN (6-23) mg/dl Creatinine (0.6-1.2) mg/dl Est Cr Clr Drug Dosing ml/min Est GFR ( Amer) ml/min Est GFR (Non-Af Amer) ml/min BUN/Creatinine Ratio (10-20) Glucose (70-99(Fasting)) mg/dl Calcium (8.5-10.1) mg/dl Magnesium (1.7-2.4) mg/dl Iron (35-150) mcg/dl TIBC (250-450) mcg/dl Unsaturated IBC (155-355) mcg/dl Transferrin % Sat (15-50) % Ferritin 219.5 (8-388) ng/ml Total Bilirubin Lactate Dehydrogenase Vitamin B12 381 (180-914) pg/ml Folate > 22.30 (>5.38) ng/ml TSH 3.091 (0.300-4.500) uIu/ml Stool Occult Bld Scrn (Negative) 01/15/22 Range/Units 15:11 WBC (4.8-10.8) K/ul RBC (3.93-5.22) M/uL Hgb (12.0-16.0) g/dl Hct (34.1-44.9) % MCV (80.0-100.0) fL MCH (25.0-34.0) pg MCHC (32.0-36.0) g/dL RDW Std Deviation (36.4-46.3) fL RDW Coeff of Warren (11.5-14.5) % Plt Count (130-400) K/uL MPV (9.4-12.3) fL Absolute Nucleated RBC (0-0) K/uL Nucleated RBC % (auto) % Peripher Smr Path Cons Haptoglobin APTT (21.0-31.0) Seconds PTT Ratio Sodium (136-145) mmol/L Potassium (3.5-5.1) mmol/L Chloride (98-107) mmol/L Carbon Dioxide (21-32) mmol/L Anion Gap (3-11) BUN (6-23) mg/dl Creatinine (0.6-1.2) mg/dl Est Cr Clr Drug Dosing ml/min Est GFR ( Amer) ml/min Est GFR (Non-Af Amer) ml/min BUN/Creatinine Ratio (10-20) Glucose (70-99(Fasting)) mg/dl Calcium (8.5-10.1) mg/dl Magnesium (1.7-2.4) mg/dl Iron 67 (35-150) mcg/dl TIBC 307 (250-450) mcg/dl Unsaturated IBC 240 (155-355) mcg/dl Transferrin % Sat 22 (15-50) % Ferritin (8-388) ng/ml Total Bilirubin Lactate Dehydrogenase Vitamin B12 (180-914) pg/ml Folate (>5.38) ng/ml TSH (0.300-4.500) uIu/ml Stool Occult Bld Scrn (Negative) Medications Administered Buspirone HCl (Buspirone 5 Mg Tab) 5 mg PO TID [facility] Stop: 02/14/22 20:59 Last Admin: 01/16/22 14:31 Dose: 5 mg Documented by: [id number] Admin: 01/16/22 07:06 Dose: 5 mg Documented by: [id number] Admin: 01/15/22 21:31 Dose: 5 mg Documented by: [id number] Cyanocobalamin (Cyanocobalamin (B-12) 500 Mcg Tablet) 1,000 mcg PO [facility] Stop: 02/15/22 08:59 Last Admin: 01/16/22 07:05 Dose: 1,000 mcg Documented by: [id number] Famotidine (Famotidine 20 Mg Tab) 20 mg PO [facility] Stop: 02/15/22 09:14 Last Admin: 01/16/22 11:03 Dose: 20 mg Documented by: [id number] Heparin Sodium/Dextrose (Heparin Sodium/Dextrose) 25,000 units in 500 mls @ 24 mls/hr IV .[id number] [facility]; Protocol Stop: 02/14/22 16:59 Last Admin: 01/16/22 12:59 Dose: 1,200 units/hr, 24 mls/hr Documented by: [id number] Cosigned by: [id number] Titration: 01/16/22 12:59 Dose: 1,200 units/hr, 24 mls/hr Documented by: [id number] Cosigned by: [id number] Titration: 01/16/22 00:20 Dose: 1,200 units/hr, 24 mls/hr Documented by: [id number] Cosigned by: [id number] Admin: 01/15/22 17:10 Dose: 1,200 units/hr, 24 mls/hr Documented by: [id number] Cosigned by: [id number] Pantoprazole Sodium (Pantoprazole 40 Mg Tab) 40 mg PO [facility] Stop: 02/15/22 08:59 Last Admin: 01/16/22 07:05 Dose: 40 mg Documented by: [id number] Simvastatin (Simvastatin 40 Mg Tab) 40 mg PO [facility] Stop: 02/14/22 20:59 Last Admin: 01/15/22 21:31 Dose: 40 mg Documented by: [id number] Trazodone HCl (Trazodone Hcl 50 Mg Tab) 25 mg PO [facility] Stop: 02/14/22 20:59 Last Admin: 01/15/22 21:35 Dose: 25 mg Documented by: [id number] Coding Level of Care Code 12588 [facility] Intl Hosp Care Lvl 2 Diagnoses Major depression F32.9 Generalized anxiety disorder F41.1
[2022-01-16 16:35] LABS: Basophils # (auto) 0.04 K/uL (0-0.2); Basophils % (auto) 0.4 %; Eosinophils # (auto) 0.15 K/uL (0-0.50); Eosinophils % (auto) 1.6 %; Hematocrit (blood only) 25.6 % (34.1-44.9); Hemoglobin 7.9 g/dl (12.0-16.0); Immature Granulocytes # (auto) 0.14 K/uL (0.00-0.02); Immature Granulocytes % (auto) 1.5 %; Lymphocytes # (auto) 1.64 K/uL (1.2-3.4); Lymphocytes % (auto) 17.9 %; Mean Corpuscular Hemoglobin 32.4 pg (25.0-34.0); Mean Corpuscular Hgb Conc 30.9 g/dL (32.0-36.0); Mean Corpuscular Volume 104.9 fL (80.0-100.0); Mean Platelet Volume 9.5 fL (9.4-12.3); Monocytes # (auto) 0.63 K/uL (0.24-0.82); Monocytes % (auto) 6.9 %; Neutrophils # (auto) 6.54 K/uL (1.4-6.5); Neutrophils % (auto) 71.7 %; Nucleated RBC # (auto) 0.02 K/uL (0-0); Nucleated RBC % (auto) 0.2 %; Platelet Count 459 K/uL (130-400); RDW Coefficient of Variation 16.8 % (11.5-14.5); RDW Standard Deviation 61.9 fL (36.4-46.3); Red Blood Count 2.44 M/uL (3.93-5.22); White Blood Count 9.14 K/ul (4.8-10.8)
[2022-01-16] MEDS: traZODone HCL 50 MG TAB PO SCH (20:01)
[2022-01-16] MEDS: SIMVASTATIN 40 MG TAB PO SCH (20:01)
--- NOTE | 2022-01-16 22:39 | Electrocardiogram Report ---
Test Reason : Blood Pressure : / mmHG Vent. Rate : 084 BPM Atrial Rate : 084 BPM P-R Int : 148 ms QRS Dur : 080 ms QT Int : 390 ms P-R-T Axes : 034 025 041 degrees QTc Int : 460 ms Normal sinus rhythm Normal ECG When compared with ECG of 08-AUG-2017 10:17, No significant change was found Confirmed by Suhas Gonzalez ([id number]) on 01/16/2022 10:39:37 PM Referred By: Confirmed By:Suhas Gonzalez
[2022-01-17 07:26] LABS: Basophils # (auto) 0.04 K/uL (0-0.2); Basophils % (auto) 0.5 %; Eosinophils # (auto) 0.15 K/uL (0-0.50); Eosinophils % (auto) 1.8 %; Hematocrit (blood only) 25.6 % (34.1-44.9); Hemoglobin 7.8 g/dl (12.0-16.0); Immature Granulocytes # (auto) 0.16 K/uL (0.00-0.02); Immature Granulocytes % (auto) 1.9 %; Lymphocytes # (auto) 1.64 K/uL (1.2-3.4); Mean Corpuscular Hemoglobin 32.6 pg (25.0-34.0); Mean Corpuscular Hgb Conc 30.5 g/dL (32.0-36.0); Mean Corpuscular Volume 107.1 fL (80.0-100.0); Mean Platelet Volume 9.1 fL (9.4-12.3); Monocytes # (auto) 0.58 K/uL (0.24-0.82); Monocytes % (auto) 7.1 %; Neutrophils # (auto) 5.64 K/uL (1.4-6.5); Neutrophils % (auto) 68.7 %; Platelet Count 394 K/uL (130-400); RDW Coefficient of Variation 16.6 % (11.5-14.5); RDW Standard Deviation 62.8 fL (36.4-46.3); Red Blood Count 2.39 M/uL (3.93-5.22); White Blood Count 8.21 K/ul (4.8-10.8)
[2022-01-17 07:54] LABS: Partial Thromboplastin Ratio 2.1
[2022-01-17 07:58] LABS: Polychromasia 1+
[2022-01-17 07:59] LABS: Partial Thromboplastin Time 59.1 Seconds (21.0-31.0)
[2022-01-17] MEDS: HEPARIN SODIUM/DEXTROSE 25,000 UNITS/500 ML BAG IV SCH (08:09)
[2022-01-17] MEDS: busPIRone 5 MG TAB PO SCH ×2 (08:13→13:19)
[2022-01-17] MEDS: PANTOprazole 40 MG TAB PO SCH (08:14)
[2022-01-17] MEDS: FAMOTIDINE 20 MG TAB PO SCH (08:14)
[2022-01-17] MEDS: CYANOCOBALAMIN (B-12) 500 MCG TABLET PO SCH (08:14)
[2022-01-17] MEDS ORDERED: ESCITALOPRAM OXALATE 10 MG TAB PO SCH (09:00)
[2022-01-17] MEDS ORDERED: CITALOPRAM 20 MG TAB PO SCH (09:00)
[2022-01-17 11:35] LABS: Reticulocyte % 14.2 % (0.5-2.0); Reticulocytes # 0.33 10^6/uL (0.02-0.10)
[2022-01-17] MEDS ORDERED: RIVAROXABAN 15 MG TAB PO SCH (12:00)
--- NOTE | 2022-01-17 14:00 | Discharge Summary ---
Date of Service January 17, 2022 Admission HPI Per Admitting Provider 71yo female with h/o generalized anxiety for many years, recent low back pain for several weeks, and multiple psychosocial stressors presents with 1 week of dyspnea on exertion. During this time period she has been feeling very anxious and in fact was prescribed xanax prn and wellbutrin 150mg daily by her PCP for such. She only started the latter yesterday. She has had poor appetite for the last week and attributes this to the anxiety. She thinks she lost weight over the previous few days but isn't sure. Prior to 1-2 weeks ago her anxiety was doing fair and appetite was normal. She mentions that her son just had surgery to remove a benign tumor in his spine, a nephew had a significant bike accident, and a neighbor had a bleeding stroke all of which caused severe anxiety for her. Denies any recent travel or surgery. She does admit to being very sedentary over the last few weeks due to the severity of her back pain. No personal or family h/o VTE. She denies any LE edema or pain. Upon ER presentation today she was noted to be hypoxic with O2 sats of 88% in RA. CTA chest showed extensive b/l pulmonary emboli. Heparin was initiated. Principal Diagnosis 1. Bilateral PEs 2. Hypoxia d/t #1 3. LLE DVT 4. Generalized anxiety disorder 5. MDD Discharge Exam GENERAL: 71 yo Well-developed, well-nourished WF. NAD. LUNGS: Clear to auscultation bilaterally. No accessory muscle use. No W/R/R. CARDIOVASCULAR: Regular rate and rhythm. ABDOMEN: Soft, non-tender and non-distended. BS normoactive x 4 quad. EXTREMITIES: No edema. Non-tender. Peripheral pulses +2/4. NEUROLOGIC: A&O x3. PSYCHIATRIC: Cooperative. Appropriate mood and affect. SKIN: Warm, dry, intact. No rashes or lesions. Discharge Data Allergies Allergy/AdvReac Type Severity Reaction Status Date / Time No Known Allergies Allergy Unverified 01/15/22 18:26 Consultations 01/15/22 16:36 ED Decision to Admit Stat 01/15/22 18:00 Consult Psychiatry Routine Ordered Studies Chest X-Ray 01/15/22 14:49 XR chest 1V portable CLINICAL HISTORY: Dyspnea on exertion, low 02 COMPARISON STUDY: Chest radiograph August 08, 2017. FINDINGS: Lung volumes are normal. Lungs are clear. There is no pneumothorax or pleural effusion. Cardiac size is normal. Mediastinal contours are normal. There is no evidence for pulmonary edema. IMPRESSION: No acute cardiopulmonary findings. ACT 112: Negative or not required by law. Electronically signed by: Perry Dai M.D. 01/15/2022 4:19 PM Chest CTA 01/15/22 16:05 CT ANGIOGRAPHY OF THE CHEST, PULMONARY EMBOLUS PROTOCOL CLINICAL HISTORY: Elevated d-dimer. Dyspnea on exertion. COMPARISON STUDY: Chest radiograph performed earlier today. Chest radiograph August 08, 2017. TECHNIQUE: Following IV administration of 119 mL of Optiray, helical axial images of the chest were obtained utilizing the pulmonary embolus protocol. Maximal intensity projections and sagittal and coronal reformats were viewed on an independent 3D workstation. IV contrast was administered without complication. Automated exposure control was utilized for the study. A dose lowering technique was utilized adhering to the principles of ALARA. CT DOSE: 515.22 mGycm FINDINGS: Note is made of extensive bilateral pulmonary emboli. Specifically, there are emboli within the lobar and segmental branches of both lungs. No saddle pulmonary embolus is present. There is mild dilatation of the central pulmonary arteries. No definite CT evidence for right heart strain. Moderate cardiomegaly is noted. No thoracic aortic dissection. Small hiatal hernia is present. No pulmonary infarct is identified. Ground glass opacities with mosaic attenuation within the lungs are noted. Lungs are suboptimally assessed due to respiratory motion. There is no pneumothorax or pleural effusion. A few suspected hepatic cysts measure up to 1.2 cm. IMPRESSION: 1. Extensive bilateral pulmonary emboli, as described above. 2. No pulmonary infarcts. No definite CT evidence for right heart strain. 3. Cardiomegaly. ACT 112: Negative or not required by law. Electronically signed by: Perry Dai M.D. 01/15/2022 4:59 PM Lumbar Spine X-Ray 01/15/22 18:00 XR lumbar spine 2-3V CLINICAL HISTORY: recent severe low back pain COMPARISON STUDY: CT of the abdomen and pelvis August 08, 2017. FINDINGS: Contrast within the bladder and collecting systems is from recent contrast-enhanced CT. Alignment of the lumbar spine is anatomic. Vertebral body heights are maintained. No fracture is noted. Severe disc space narrowing with osteophytosis at L5-S1 is again noted. Otherwise, mild multilevel disc space narrowing is noted. IMPRESSION: 1. No acute lumbar spine fracture or subluxation. 2. Severe disc space narrowing at L5-S1 with osteophytosis. Otherwise, mild multilevel disc space narrowing. 3. Moderate multilevel facet arthrosis. ACT 112: Negative or not required by law. Electronically signed by: Perry Dai M.D. 01/15/2022 7:35 PM Venous Doppler Study 01/15/22 18:00 BILATERAL LOWER EXTREMITY VENOUS DOPPLER CLINICAL HISTORY: b/l PEs; assess for DVT either leg COMPARISON STUDY: No previous studies for comparison. TECHNIQUE: Sonography of the deep venous system of the bilateral lower extremities was performed. Compression and augmentation were evaluated. FINDINGS: There is no deep venous thrombus within the right lower extremity. Note is made of deep venous thrombus within the left gastrocnemius vein which extends from the popliteal fossa to mid calf. IMPRESSION: 1. Deep venous thrombus within the left gastrocnemius vein which extends from the popliteal fossa to mid calf. 2. No deep venous thrombus within the right lower extremity. ACT 112: Negative or not required by law. Electronically signed by: Perry Dai M.D. 01/15/2022 7:57 PM Echocardiogram: 01/16/22 1. Normal left ventricular size with hyperdynamic systolic function. EF >70%. No RWMA. Mild concentric LVH. 2. No significant valvular abnormalities. 3. Moderate pulmonary hypertension. Estimated RVSP 56 mmHg. Hospital Course (1) Pulmonary emboli: Extensive b/l PEs on CTA chest - Treated with heparin drip - b/l LE venous dopplers obtained - positive DVT in LLE - Echo ordered, results as above - Transitioned to Xarelto today (01/17) and dc'd heparin gtt - Continue supplemental O2 w/ activity (2) Acute respiratory failure with hypoxia: - Secondary to b/l PEs - Needs 2.5L O2 via NC with activity (3) Macrocytic anemia: - B12 level is low at 381-supplementation ordered - Folate/TSH is wnl. - Peripheral smear ordered/pending - Elevated TB on chemistries as well as LDH ?hemolysis - Haptoglobin ordered and is pending - Retic count high, recent blood loss ? last colo was 4 years ago, never had an EGD - H&H has been stable for over 24 hrs, rectal exam heme neg, would recommend considering updated colonoscopy and EGD in near future but will defer this to her PCP for further discussion/referral - Has appt with PCP on Saturday 01/20 which she will need to keep (4) Chronic low back pain: - This caused significant immobility over the last month by report. - For pain - tylenol prn, norco prn pain - Lumbar xray-severe disc space narrowing L5-S1 with osteophytosis, multilevel disc space narrowing - Could consider referral to Dr. Constantino once acute issues resolve (5) Hyperlipidemia: - Continue statin agent (6) NERY (generalized anxiety disorder): Severe. - In fact, during the encounter, she was more focused on her NERY than the PEs and other presenting issues. - Cont celexa 40mg daily - has been on such for years. - Wellbutrin & Xanax was just started 01/14 but placed on hold (not continued during her stay) - Admitting physician added buspar 5mg TID w/ consult to psychiatry for med recommendations. - Seen by Dr. Cherry on 01/16, recommended cross taper with Celexa and Lexapro. * Subsequently, pt started on 20mg 01/17 of Celexa and 5mg of Lexapro together. Will continue this x 7 days * She will then reduce Celexa to 10mg daily and increase Lexapro to 10mg daily x 7 days and then STOP the Celexa and CONTINUE the Lexapro - Patient has an office visit scheduled with Dr Deluca as outpatient in February which she will need to keep to make further medication adjustments (7) GERD (gastroesophageal reflux disease): - Given IV pepcid x 1 on 01/15, followed by PO protonix 40mg daily. - Consider outpatient EGD given the frequency of her symptoms once acute issues resolved - Takes Pepcid at home, will resume 20mg daily (8) Insomnia: - Severe, trial trazodone 25mg HS. (9) Elevated troponin: - Secondary to myocardial demand ischemia in the setting of b/l PEs - No evidence of ACS. - Echo has been ordered to eval for right heart strain which showed no evidence of such (10) Elevated bilirubin: - At minimum would repeat in 48 hours. - If it stays mildly elevated in the absence of elevated direct bilirubin -- Gilbert's? At this time, pt is medically and hemodynamically stable for discharge home. Supplemental O2 has been ordered/arranged and is only needed with activity. Psychiatric med adjustments as outlined above. Advise close PCP follow up as scheduled on Saturday 01/20. Plan has been d/w Dr. Rolando Meehan who has also evaluated this patient prior to discharge and is in agreement with the aforementioned. Total Time Total Time Spent Total Time Spent (In Minutes): >30 minutes Discharge Plan Discharge Items Patient Disposition: Home - Self-Care Reason For Visit: B/L PULMONARY EMBOLI Discharge Diagnosis: blood clots in lungs Activity: Resume your previous activity Non-emergency contact: Primary Care Provider and Psychiatrist Call non-emergency contact if: you have any medication questions and your symptoms worsen Follow-up/Referrals: Aldair Deluca MD [Physician] - 02/13/22 9:20 am Thelma England MD [Primary Care Provider] - Diet: Regular Addtl Attending Provider Instructions: You were hospitalized due to low oxygen and fast heart rate which was found to be due to blood clots that were present throughout both lungs. You were started on a blood thinning medication called Heparin through your IV. Your work up revealed that you had a large blood clot in your left leg which likely occurred due to inactivity and a piece of this clot broke off and traveled to your lungs. You were also started on supplemental oxygen through your nose. You were also found to have a low blood count. It is suspected that at some point recently you experienced blood loss and now your body is trying to make up for it by producing new red blood cells. Since you have an appointment coming up on Thursday with your family doctor, we will defer further work up and follow up labwork to her. A repeat colonoscopy and EGD (upper GI scope) should be considered given suspected recent blood loss to look for a potential source of bleeding. Again, will defer referral to your PCP. You are being sent home with oxygen which you will need to use with activity at 2.5 Liters. At rest, you do not need any oxygen. To treat your blood clots, you will be placed on Xarelto (a blood thinner) 15mg, one tablet by mouth twice a day (take with food) x 3 weeks and then, starting 02/07/22, you will start taking 20mg once a day. You will continue to be treated for a minimum of 3 months up to 6 months. Total duration will be at the discretion of your primary care provider. Lastly, your psychiatric medications have been adjusted as follows: 1. Celexa (Citalopram) has been reduced to 20mg daily, you will continue this dose through 01/24. After that, you will start Celexa (Citalopram) 10mg daily and take it once a day for 7 days and then STOP. 2. You have been started on Lexapro (Escitalopram) 5mg once daily. You will continue this dose through 01/24. After that, you will start Lexapro (Escitalopram) 10mg once a day. 3. You are being prescribed Trazodone 25mg, one tablet by mouth at bedtime. Following your discharge, if you have questions, please call the nonemergency number listed on your discharge paperwork. In the event of a medical emergency, call 911. Pending Studies at Discharge: Yes Studies:: HAPTOGLOBIN PERIPHERAL SMEAR Stand-Alone Forms: My [employer], Smoking Cessation Medications and DC Order Prescriptions: New Xarelto DVT-PE Treat 30d Start 15 mg (42)- 20 mg (9) tablets,dose pack See Rx Instructions .ROUTE .COMPLEX Qty: 51 RF: 0 trazodone 50 mg Tablet 25 mg PO HS Qty: 15 RF: 0 cyanocobalamin (vitamin B-12) 500 mcg Tablet 1,000 mcg PO QAM Qty: 30 RF: 0 citalopram 20 mg tablet 20 mg PO DAILY Qty: 6 RF: 0 escitalopram oxalate [Lexapro] 5 mg tablet 5 mg PO DAILY Qty: 6 RF: 0 escitalopram oxalate [Lexapro] 10 mg tablet 10 mg PO DAILY Qty: 30 RF: 0 citalopram 10 mg tablet 10 mg PO DAILY Qty: 7 RF: 0 Continued simvastatin 40 mg tablet 40 mg PO HS RF: 0 famotidine 20 mg tablet 20 mg PO BID RF: 0 azelastine 137 mcg (0.1 %) aerosol,spray 2 spray INTRANASAL BID PRN (Reason: Nasal Congestion) RF: 0 Discontinued citalopram 40 mg tablet 40 mg PO DAILY RF: 0 alprazolam 0.5 mg tablet 0.5 mg PO DAILY PRN (Reason: Anxiety) RF: 0 bupropion HCl 150 mg tablet extended release 24 hr 150 mg PO DAILY RF: 0 Discharge Orders: Discharge Order (Routine); Ordered 01/17/22 Ordered By: Vanesa Rangel Admission Data Admit Date/Time: 01/15/22 17:30 Attending Provider: Fahad Meehan Admit Provider: Kenneth Welsh Primary Care Provider: Thelma England Other Providers: Janice Sandoval ; Mary Ann Cherry ; Cristina Burns ; Kenneth Welsh Other Interventions: Discharge Summary Assessment (RN) Last Done: 01/17/22 14:23 Supervising Physician Co-Signing Physician Notes I supervised Vanesa Rangel PA-C on the care of this patient. I interviewed and examined the patient independently of her. The plan is as written in her note except for any following changes/exceptions: None 71yo F w/ hx of anxiety who presents with pulmonary embolism. Patient is doing well overall. Still requiring some mild NC O2, but stable. Tolerating anticoagulation well without drop in hemoglobin. Her baseline is not entirely clear given her health records are largely at [facility]. We discussed my recommendation that she be evaluated by GI while in the hospital, but she became very tearful and declined. She had an infection after a colonoscopy several years prior and does not want another. I discussed at least having an EGD with GI, but again, she declined at this time. I encouraged her to follow up with her PCP on Thursday to get blood counts rechecked and consider GI evaluation. Coding Level of Care Code D/C DAY MANAGEMENT >30 MINS Diagnoses Pulmonary emboli I26.99 Acute cor pulmonale presence: unspecified Chronicity: acute Pulmonary embolism type: unspecified Acute respiratory failure with hypoxia J96.01 Macrocytic anemia D53.9 Chronic low back pain M54.50; G89.29 Hyperlipidemia E78.5 NERY (generalized anxiety disorder) F41.1 GERD (gastroesophageal reflux disease) K21.9 Insomnia G47.00 Elevated troponin R77.8 Elevated bilirubin R17
== END 2022-01-17 16:30 | disposition home or self-care (01) | DRG 175 ==
LOC: ED 13:59 → 2S 17:30 → SUATTDRO 17:30 → 2S 19:25

== ENCOUNTER 2022-03-04 12:02 | Inpatient (IN) ==
[2022-03-04 13:06] LABS: Hemoglobin 5.4 g/dl (12.0-16.0); Mean Corpuscular Hemoglobin 35.5 pg (25.0-34.0); Mean Corpuscular Hgb Conc 28.4 g/dL (32.0-36.0); Mean Platelet Volume 9.2 fL (9.4-12.3); Nucleated RBC # (auto) 0.18 K/uL (0-0); Nucleated RBC % (auto) 1.5 %; Platelet Count 1041 K/uL (130-400); RDW Coefficient of Variation 18.2 % (11.5-14.5); RDW Standard Deviation 80.2 fL (36.4-46.3); Red Blood Count 1.52 M/uL (3.93-5.22); White Blood Count 11.89 K/ul (4.8-10.8)
[2022-03-04 13:13] LABS: INR 1.1 (0.9-1.1); Partial Thromboplastin Ratio 0.9; Partial Thromboplastin Time 23.6 Seconds (21.0-31.0); Prothrombin Time 11.2 Seconds (9.0-12.0)
[2022-03-04 13:20] LABS: Albumin Globulin Ratio 1.4 (0.9-2); Albumin Level 3.9 gm/dl (3.4-5.0); BUN Creatinine Ratio 14.3 (10-20); Bilirubin,Total 3.5 mg/dl (0.2-1.0); Calcium 9.2 mg/dl (8.5-10.1); Creatinine Clr Calc Pharmacy 53.3 ml/min; Est GFR (African American) 66.3 ml/min; Est GFR (Non-African American) 57.2 ml/min; Globulin 2.7 gm/dl (2.5-4.0); Total Protein 6.6 gm/dl (6.0-8.3)
[2022-03-04] MEDS ORDERED: SODIUM CHLORIDE 0.9% 250 ML IV PRN (13:26)
[2022-03-04] MEDS ORDERED: SODIUM CHLORIDE 0.9% 500 ML IV ONE (13:30)
--- NOTE | 2022-03-04 13:30 | Emergency Department Note ---
Impression & Plan Symptomatic anemia, Weakness, Elevated platelet count ED Provider Note NAME: ARTHUR BATISTA AGE: 71 SEX: F : 1950 ARRIVES VIA: Walk-In INFORMANT: Patient ED PROVIDER(S): Arturo Looney DO CHIEF COMPLAINT: Weak and anemic HPI: Patient is a 31-year-old female with a past medical history of GERD, PE on Xarelto who presents to the ER for weakness. Had blood work performed as an outpatient showed a low hemoglobin. Denies any headache or change in vision. No chest pain or shortness of breath. No belly pain. Did have some blood in her urine yesterday but has not had any previously. Denies any dark tarry stools or bright red blood per rectum. No dysuria, urgency, or frequency. No other exacerbating or remitting factors. ROS: See above HPI for pertinent positives & negatives. A total of 10 systems reviewed and were otherwise negative. PAST MEDICAL HISTORY:See Below PAST SURGICAL HISTORY:See Below FAMILY HISTORY:See Below SOCIAL HISTORY:See Below HOME MEDICATIONS:See Below ALLERGIES:See Below VITALS:See Below PHYSICAL EXAMINATION: GENERAL: Sitting up in bed, alert, well appearing, well nourished, no distress, non-toxic EYE EXAM: normal conjunctiva. OROPHARYNX: no exudate, no erythema, lips, buccal mucosa, and tongue normal and mucous membranes are moist NECK: supple, no nuchal rigidity, no adenopathy, non-tender LUNGS: Clear to auscultation. Normal chest wall mechanics HEART: no murmurs, S1 normal and S2 normal ABDOMEN: abdomen soft, non-tender, normo-active bowel sounds, no masses, no rebound or guarding. RECTAL: Hem neg UPPER EXTREMITIES: upper extremities are grossly normal. LOWER EXTREMITIES: No pitting edema. NEURO EXAM: Normal sensorium, cranial nerves II-XII grossly intact, normal speech, no gross weakness of arms, no gross weakness of legs. MEDICAL DECISION MAKING: Patient is a 71-year-old female who presents the ER as she felt her heart racing. She went to her PCP had blood work done and was referred into the ER. IV was established blood work is obtained. Labs show leukocytosis of 11.8 thousand. Hemoglobin was low at 5.2 down from baseline of what appears to be 7.5-8. Platelets were slightly elevated at 1041 up from 800 previously. INR unremarkable. BMP was unremarkable as well. T bili up at 3.5 which has been trending up. LDH is elevated at 412. Troponin was negative. Patient had multiple antibodies. Due to the protracted weights and high volume and acuity patient was initially seen in the waiting room. Orders for type and cross and PRBCs were ordered but due to the antibodies this had come from the blood bank in [place]. Estimated time of arrival is between 8Pm and 1 AM. Patient was discussed with all personnel. There is no active bleeding currently. She was given IV fluids. Hemodynamically stable. Patient has no belly pain. She was discussed with hospitalist admitted for further work-up. Triage Nursing notes reviewed. Limited review of prior medical records performed Vital Signs: reviewed and remarkable for tachy Differential diagnosis: Infection, dehydration, metabolic abnormality, hypo/hyperglycemia, electrolyte disturbance, anemia, hypoxia, cardiac sources, intracerebral event, toxicologic, neurologic, as well as other pathologies. ER treatment provided: See below Diagnostics interpreted by me: ECG: Sinus tachycardia rate of 121 Normal axis No PVCs Septal Q waves QTC 474 Cardiac Monitoring: An order was placed for continuous cardiac monitoring. The monitor shows a rate of 102 with sinus rhythm. Laboratory studies: As stated above and show below. Imaging studies: See below Consultation(s): Discussed with Dr. Fabián Dan for further evaluation. Procedures: none Critical Care: I have personally spent 35 minutes of critical care time in the direct management of this patient. This includes bedside care, interpretation of diag nostic studies, and testing, discussion with consultants, patient, and family members, and other required patient management activities. This 35 minutes is in excess of all separately billable procedures. Past Med/Surg History Medical History Chronic low back pain Congenital ptosis of right eyelid GERD (gastroesophageal reflux disease) Hx of colonic polyps Hyperlipidemia Surgical History H/O cataract extraction b/l Family History Father Myocardial infarction Mother Pancreatitis Denies family history of Deep vein thrombosis Pulmonary embolism Social History (Reviewed 03/04/22 @ 15:42 by SANTIAGO Frankel Smoking Status: Never smoker Hx Alcohol Use: No Hx Substance Use: No Preferred Language: Armenian Communication Ability: Effective Gum Cook Required: No Beliefs That Will Affect Care: None marital status: Current Living Situation: Spouse Current Living Situation Comment: in [place] current occupational status: retired How many Children do You have: 2 How many Children do You have Comment: 1 son, 1 daughter Feels Safe at Home: Yes Assistive Devices: None Allergies Allergies Allergy/AdvReac Type Severity Reaction Status Date / Time No Known Allergies Allergy Unverified 02/06/22 17:22 Home Meds Home Medications Medication Instructions Recorded Confirmed famotidine 20 mg tablet 20 mg PO BID 01/15/22 02/06/22 simvastatin 40 mg tablet 40 mg PO HS 01/15/22 02/06/22 alprazolam 0.5 mg tablet 0.5 mg PO DAILY PRN Anxiety 02/06/22 02/06/22 escitalopram oxalate 10 mg tablet 10 mg PO QAM 02/06/22 02/06/22 (Lexapro) rivaroxaban 20 mg tablet (Xarelto) 20 mg PO Q12 02/06/22 02/06/22 Results & Data (ED) Vital Signs Vital Signs - 24 hr 03/04/22 12:13 03/04/22 14:32 03/04/22 14:33 Temperature 36.5 C Temperature Source Temporal Artery Scan Pulse Rate 103 H 91 H Pulse Rate [Apical] 87 Pulse Rhythm Regular Pulse Rhythm [Apical] Regular Pulse Strength Normal Respiratory Rate 20 20 Respiratory Effort / Characteristics Non-Labored Spontaneous Respiratory Depth Normal Normal Respiratory Pattern Regular Blood Pressure 104/62 Blood Pressure Mean 76 Blood Pressure Position Sitting Pulse Oximetry 96 96 96 Oxygen Delivery Method Room Air Room Air Room Air Sepsis Recent Fever Within 48 Hours No Sepsis New/Unexplained Change in Mental Status N/A Sepsis Action Taken by Nursing No Action Required Laboratory Data Result diagrams: 03/04/22 12:43 03/04/22 12:43 Lab Results 03/04/22 03/04/22 03/04/22 Range/Units 12:43 12:43 12:43 WBC 11.89 H (4.8-10.8) K/ul RBC 1.52 L (3.93-5.22) M/uL Hgb 5.4 L* (12.0-16.0) g/dl Hct 19.0 L* (34.1-44.9) % MCV 125.0 H (80.0-100.0) fL MCH 35.5 H (25.0-34.0) pg MCHC 28.4 L (32.0-36.0) g/dL RDW Std Deviation 80.2 H (36.4-46.3) fL RDW Coeff of Warren 18.2 H (11.5-14.5) % Plt Count 1041 H* (130-400) K/uL MPV 9.2 L (9.4-12.3) fL Absolute Nucleated RBC 0.18 H (0-0) K/uL Nucleated RBC % (auto) 1.5 % Peripher Smr Path Cons PT 11.2 (9.0-12.0) Seconds INR 1.1 (0.9-1.1) APTT 23.6 (21.0-31.0) Seconds PTT Ratio 0.9 Sodium 137 (136-145) mmol/L Potassium 4.0 (3.5-5.1) mmol/L Chloride 105 (98-107) mmol/L Carbon Dioxide 27 (21-32) mmol/L Anion Gap 5 (3-11) BUN 14 (6-23) mg/dl Creatinine 0.98 (0.6-1.2) mg/dl Est Cr Clr Drug Dosing 53.3 ml/min Est GFR ( Amer) 66.3 ml/min Est GFR (Non-Af Amer) 57.2 ml/min BUN/Creatinine Ratio 14.3 (10-20) Glucose 94 (70-99(Fasting)) mg/dl Calcium 9.2 (8.5-10.1) mg/dl Total Bilirubin 3.5 H (0.2-1.0) mg/dl AST 23 (13-39) U/L ALT 11 (7-52) U/L Alkaline Phosphatase 46 (34-104) U/L Lactate Dehydrogenase (86-244) U/L Troponin I High Sens (0-14) pg/ml Total Protein 6.6 (6.0-8.3) gm/dl Albumin 3.9 (3.4-5.0) gm/dl Globulin 2.7 (2.5-4.0) gm/dl Albumin/Globulin Ratio 1.4 (0.9-2) SARS-CoV-2, RNA, NAAT (NEGATIVE) Blood Type Antibody Screen Crossmatch 03/04/22 03/04/22 03/04/22 Range/Units 12:43 12:43 12:43 WBC (4.8-10.8) K/ul RBC (3.93-5.22) M/uL Hgb (12.0-16.0) g/dl Hct (34.1-44.9) % MCV (80.0-100.0) fL MCH (25.0-34.0) pg MCHC (32.0-36.0) g/dL RDW Std Deviation (36.4-46.3) fL RDW Coeff of Warren (11.5-14.5) % Plt Count (130-400) K/uL MPV (9.4-12.3) fL Absolute Nucleated RBC (0-0) K/uL Nucleated RBC % (auto) % Peripher Smr Path Cons Cancelled PT (9.0-12.0) Seconds INR (0.9-1.1) APTT (21.0-31.0) Seconds PTT Ratio Sodium (136-145) mmol/L Potassium (3.5-5.1) mmol/L Chloride (98-107) mmol/L Carbon Dioxide (21-32) mmol/L Anion Gap (3-11) BUN (6-23) mg/dl Creatinine (0.6-1.2) mg/dl Est Cr Clr Drug Dosing ml/min Est GFR ( Amer) ml/min Est GFR (Non-Af Amer) ml/min BUN/Creatinine Ratio (10-20) Glucose (70-99(Fasting)) mg/dl Calcium (8.5-10.1) mg/dl Total Bilirubin (0.2-1.0) mg/dl AST (13-39) U/L ALT (7-52) U/L Alkaline Phosphatase (34-104) U/L Lactate Dehydrogenase 412 H (86-244) U/L Troponin I High Sens 5.3 D (0-14) pg/ml Total Protein (6.0-8.3) gm/dl Albumin (3.4-5.0) gm/dl Globulin (2.5-4.0) gm/dl Albumin/Globulin Ratio (0.9-2) SARS-CoV-2, RNA, NAAT (NEGATIVE) Blood Type Antibody Screen Crossmatch 03/04/22 03/04/22 Range/Units 12:56 14:40 WBC (4.8-10.8) K/ul RBC (3.93-5.22) M/uL Hgb (12.0-16.0) g/dl Hct (34.1-44.9) % MCV (80.0-100.0) fL MCH (25.0-34.0) pg MCHC (32.0-36.0) g/dL RDW Std Deviation (36.4-46.3) fL RDW Coeff of Warren (11.5-14.5) % Plt Count (130-400) K/uL MPV (9.4-12.3) fL Absolute Nucleated RBC (0-0) K/uL Nucleated RBC % (auto) % Peripher Smr Path Cons PT (9.0-12.0) Seconds INR (0.9-1.1) APTT (21.0-31.0) Seconds PTT Ratio Sodium (136-145) mmol/L Potassium (3.5-5.1) mmol/L Chloride (98-107) mmol/L Carbon Dioxide (21-32) mmol/L Anion Gap (3-11) BUN (6-23) mg/dl Creatinine (0.6-1.2) mg/dl Est Cr Clr Drug Dosing ml/min Est GFR ( Amer) ml/min Est GFR (Non-Af Amer) ml/min BUN/Creatinine Ratio (10-20) Glucose (70-99(Fasting)) mg/dl Calcium (8.5-10.1) mg/dl Total Bilirubin (0.2-1.0) mg/dl AST (13-39) U/L ALT (7-52) U/L Alkaline Phosphatase (34-104) U/L Lactate Dehydrogenase (86-244) U/L Troponin I High Sens (0-14) pg/ml Total Protein (6.0-8.3) gm/dl Albumin (3.4-5.0) gm/dl Globulin (2.5-4.0) gm/dl Albumin/Globulin Ratio (0.9-2) SARS-CoV-2, RNA, NAAT NEGATIVE (NEGATIVE) Blood Type O Negative Antibody Screen POSITIVE A Crossmatch See Detail Administered Medications Discontinued Medications Sodium Chloride (Nss) 500 mls @ 999 mls/hr IV .Q31M ONE Stop: 03/04/22 14:00 Last Infusion: 03/04/22 15:45 Dose: 0 mls/hr Documented By: Admin: 03/04/22 14:30 Dose: 999 mls/hr Documented By: PILY Discharge Plan Visit Data Chief Complaint: Referred by Doctor Stated Complaint: REF FOR BLOOD TRANSFUSION ED Provider: Arturo Looney Discharge Problem: Symptomatic anemia, Weakness, Elevated platelet count Forms Stand Alone Forms: My [facility] [employer] Prescriptions Prescriptions: No Action simvastatin 40 mg tablet 40 mg PO HS famotidine 20 mg tablet 20 mg PO BID Xarelto 20 mg tablet 20 mg PO Q12 escitalopram oxalate [Lexapro] 10 mg tablet 10 mg PO QAM alprazolam 0.5 mg tablet 0.5 mg PO DAILY PRN (Reason: Anxiety) Referrals Referrals: Thelma England MD [Primary Care Provider] -
--- NOTE | 2022-03-04 14:27 | History & Physical Report ---
Date of Service March 04, 2022 History of Present Illness Primary Care Provider: Thelma England MD Velma Edgar is a 71-year-old female with past medical history of pulmonary emboli on Xarelto, hyperlipidemia, macrocytic anemia, GERD, depression/anxiety who presents to the ER for global weakness and with an outpatient hemoglobin draw which showed acute anemia. She did have some dysuria, has not had any bright red blood per rectum or melena. Acute anemia Baseline hemoglobin 7.7-8.9, last hemoglobin 8.9 02/06/2022 Acutely decreased to 5.4-day of admission, platelet count 1041, MCV 125 Sodium normal, potassium normal, creatinine with normal baseline and 0.0.98 on admission BUN is 14, not elevated on admission Total bilirubin 3.5, no transaminitis/elevated alk phos Stool occult blood was + 02/06/2022 - Folate wnl 01/2022 - B12, B12 normal 01/2022 - ?Drug induced, Etoh, MDS, megaloblastic, thyroid TTE 01/16/2022: Normal LV SF, hyperdynamic, EF 70%. No valvular abnormalities. RVSP 56 Stray of anxiety/depression Recently cross tapered to Lexapro Avoid benzos Last GI consult 07/2017: GI bleeding. Allergies Allergy/AdvReac Type Severity Reaction Status Date / Time No Known Allergies Allergy Unverified 02/06/22 17:22 Home Medications Medication Instructions Recorded Confirmed Type famotidine 20 mg tablet 20 mg PO BID 01/15/22 02/06/22 History simvastatin 40 mg tablet 40 mg PO HS 01/15/22 02/06/22 History alprazolam 0.5 mg tablet 0.5 mg PO DAILY PRN Anxiety 02/06/22 02/06/22 History escitalopram oxalate 10 mg tablet 10 mg PO QAM 02/06/22 02/06/22 History (Lexapro) rivaroxaban 20 mg tablet (Xarelto) 20 mg PO Q12 02/06/22 02/06/22 History Past Med/Surg History Medical History Chronic low back pain Congenital ptosis of right eyelid NERY (generalized anxiety disorder) GERD (gastroesophageal reflux disease) Hx of colonic polyps Hyperlipidemia Surgical History H/O cataract extraction b/l Family History Father Myocardial infarction Mother Pancreatitis Denies family history of Deep vein thrombosis Pulmonary embolism Social History Smoking Status: Never smoker Hx Alcohol Use: No Hx Substance Use: No Preferred Language: Kazakh Communication Ability: Effective Kier Drier Required: No Beliefs That Will Affect Care: None marital status: Current Living Situation: Spouse Current Living Situation Comment: in [place] current occupational status: retired How many Children do You have: 2 How many Children do You have Comment: 1 son, 1 daughter Feels Safe at Home: Yes Assistive Devices: None Results & Data Results & Data ([facility]) Vital Signs (Past 12 Hours) Vital Signs Temp Pulse Resp BP Pulse Ox O2 Del Method 03/04/22 12:13 36.5 C 103 H 20 104/62 96 Room Air PG Care Time/CCT Total # of Minutes Spent Total Time Spent with Patient: Total time spent is greater than 50% in coordination of care (as documented) at patient's floor/unit and/or counseling patient: Coding
--- NOTE | 2022-03-04 15:37 | History & Physical Report ---
Date of Service March 04, 2022 Assessment & Plan (1) Anemia: Plan: Anemia acute on chronic- macrocytic not associated with blood loss - DDX: macrocytic B12 deficiency anemia vs. blood dyscrasia vs. hemolysis vs. other - Nucleated RBC 0.18 with RDW of 18 - LDH- mild elevation 412, Ferritin pending - Haptoglobin in January was 37 (43-212) - Peripheral smear pending - Transfuse 1-2 units PRBC to get above 7.0 - Re-institute B12 in am - Follow CBC in AM - Follow hemodynamics - PT/INR normal - Place on PPI BID for now - Pending above results consider further evaluation with Haematology consultation (2) Thrombocytosis: Plan: Likely secondary to her macrocytic anemia - peripheral smear pending - hematology consultation if other pathology (3) Generalized anxiety disorder: Plan: Remains with self-reported severe symptoms without suicidal ideations - endorses multiple triggering events that occurred prior to her admission in January - Psych evaluation completed last admission with taper of Celexa and addition Lexapro (4) Major depression: Plan: As above (5) Elevated bilirubin: Plan: Hx of previous mild elevation in bilirubin 1.9 - as above r/o hemolysis (6) Insomnia: Plan: Continue Remeron (7) GERD (gastroesophageal reflux disease): Plan: As above- IV PPI 24 hours follow symptoms and HGB (8) Pulmonary emboli: Plan: Bilateral PE lobar and segmental 01/31 - Continue Xarelto 20mg PO daily- takes at 1700 - Hold if bleeding becomes evident, hemodynamically unstable, or other pathology revealed (9) Hyperlipidemia: Plan: Continue Simvastatin 40mg nightly History of Present Illness Primary Care Provider: Thelma England MD 71 YOF with medical history of: Anxiety/Depression, PE (Xarelto 01/31), HLD, GERD, Insomnia, B12 deficiency, elevated bilirubin level. Patient comes to the EMD today at direction from her PCP on routine blood draw. The patient was noted to have decrease HGB to 5.4 from 8.9 previously in January. The patient states that she has been "awful because she is so depressed and anxious". She does report that over the past week she has been more tired, cold, and feeling like her heart rate was going fast when she got up to do anything. She endorses some dizziness this morning upon standing. She was previously evaluated in the EMD 02/06 for concerns of rectal bleeding and dark urine- this was felt consistent with anal fissure on examination and hemorrhoids. On today's visit she is Hemoccult negative, she denies any changes to her bowel movements, abdominal pain or vomiting. She reports some blood on her toilet paper following urination this morning. She is hemodynamically stable. Following her previous admission in January- she was treated with B12 and was discharged on oral cyanocobalamin- however says she had only 1 pill when she left and they never took anymore. Her HGB is noted at 5.4, Platelet count 1041, WBC 11.8 MCV 125, bilirubin at 3.1 which is up from her baseline 1.9. Will iron panel, b12, folate, LDH, ferritin and obtain peripheral smear to rule out other causes than the known B12 deficiency that she is known to have. She is typed and crossed for 2 units of PRBC to transfuse. However, she has antibody and is requiring blood transfer from [place]. Previous peripheral smear 01/16/22- The peripheral smear is remarkable for a macrocytic anemia and mild thrombocytosis. Potential etiologies of a macrocytic anemia include vitamin deficiencies (folate/B12), drugs, toxins and myelodysplastic syndrome. COVID test: NEGATIVE Allergies Allergy/AdvReac Type Severity Reaction Status Date / Time No Known Allergies Allergy Unverified 02/06/22 17:22 Home Medications Medication Instructions Recorded Confirmed Type famotidine 20 mg tablet 20 mg PO BID 01/15/22 02/06/22 History simvastatin 40 mg tablet 40 mg PO HS 01/15/22 02/06/22 History alprazolam 0.5 mg tablet 0.5 mg PO DAILY PRN Anxiety 02/06/22 02/06/22 History escitalopram oxalate 10 mg tablet 10 mg PO QAM 02/06/22 02/06/22 History (Lexapro) rivaroxaban 20 mg tablet (Xarelto) 20 mg PO Q12 02/06/22 02/06/22 History Past Med/Surg History Medical History Chronic low back pain Congenital ptosis of right eyelid GERD (gastroesophageal reflux disease) Hx of colonic polyps Hyperlipidemia Surgical History H/O cataract extraction b/l Family History Father Myocardial infarction Mother Pancreatitis Denies family history of Deep vein thrombosis Pulmonary embolism Social History Smoking Status: Never smoker Hx Alcohol Use: No Hx Substance Use: No Preferred Language: Mohawk Communication Ability: Effective 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 Beliefs That Will Affect Care: None marital status: Current Living Situation: Spouse Current Living Situation Comment: in [employer] current occupational status: retired How many Children do You have: 2 How many Children do You have Comment: 1 son, 1 daughter Feels Safe at Home: Yes Assistive Devices: None Review of Systems Review of Systems: REVIEW OF SYSTEMS: Constitutional: No fever, sweats or chills Eyes: No diplopia, no worsening or blurred vision ENT: normal hearing, no trouble swallowing Respiratory: No cough, sputum, dyspnea at rest or on exertion Cardiovascular: (+) fast HR feelin, No chest pain, tightness Abdomen: No pain, nausea, vomiting, diarrhea or constipation Musculoskeletal: No joint pain, calf pain, swelling Neurologic: No weakness, numbness/tingling, or balance problems Psychiatric: (+) anxiety or depression Skin: No rash or itch Physical Exam Physical Exam: PHYSICAL EXAM: General: awake, alert, no apparent distress Head: Normocephalic, atraumatic ENT: Pale conjunctiva, pale gums, PERRL, EOMI, no pharyngeal exudate, mucous membranes moist Neuro: AAO x 3, speech clear and appropriate, strength intact bilaterally 5/5, sensation intact and equal all extremities and dermatomes, no pronator drift Chest: equal rise and fall of the chest, no accessory muscle use, no heaves or thrills, Clear to auscultation, on room air, Cardiac: Regular rate and rhythm, telemetry reviewed, skin warm dry, cap refill <3 seconds, peripheral pulses +2 no JVD, no murmur, trace edema GI: NABS x 4 quadrants, soft, nontender to palpation, no rebound, guarding or tenderness : Spontaneously voiding, no pain, no CVA tenderness, Extremities: Normal inspection, no peripheral edema or erythema, calfs nontender to palpation Psych: flat anxious Skin: no rash or erythema Results & Data Results & Data ([facility]) Vital Signs (Past 12 Hours) Vital Signs Temp Pulse Pulse Resp BP Pulse Ox O2 Del Method 03/04/22 14:33 91 H 96 Room Air 03/04/22 14:32 87 20 96 Room Air 03/04/22 12:13 36.5 C 103 H 20 104/62 96 Room Air Laboratory Results Abnormal lab results 03/04/22 03/04/22 03/04/22 Range/Units 12:43 12:43 12:56 WBC 11.89 H (4.8-10.8) K/ul RBC 1.52 L (3.93-5.22) M/uL Hgb 5.4 L* (12.0-16.0) g/dl Hct 19.0 L* (34.1-44.9) % MCV 125.0 H (80.0-100.0) fL MCH 35.5 H (25.0-34.0) pg MCHC 28.4 L (32.0-36.0) g/dL RDW Std Deviation 80.2 H (36.4-46.3) fL RDW Coeff of Warren 18.2 H (11.5-14.5) % Plt Count 1041 H* (130-400) K/uL MPV 9.2 L (9.4-12.3) fL Absolute Nucleated RBC 0.18 H (0-0) K/uL Total Bilirubin 3.5 H (0.2-1.0) mg/dl Antibody Screen POSITIVE A Crossmatch See Detail Diagnostic Findings none Medications Administered Home Medications famotidine 20 mg tablet 20 mg PO BID 01/15/22 [History Confirmed 02/06/22] simvastatin 40 mg tablet 40 mg PO HS 01/15/22 [History Confirmed 02/06/22] alprazolam 0.5 mg tablet 0.5 mg PO DAILY PRN Anxiety 02/06/22 [History Confirmed 02/06/22] escitalopram oxalate 10 mg tablet (Lexapro) 10 mg PO QAM 02/06/22 [History Confirmed 02/06/22] rivaroxaban 20 mg tablet (Xarelto) 20 mg PO Q12 02/06/22 [History Confirmed 02/06/22] Active Medications Sodium Chloride (Nss) 250 mls @ 15 mls/hr IV .[id number] PRN PRN Reason: For Transfusion Stop: 03/04/22 23:26 ECG Additional Comments: Sinus tachycardia Low voltage QRS Borderline ECG When compared with ECG of 15-JAN-2022 15:01, No significant change Code Status & VTE Plan Code Status CODE: FULL VTE: SCDS, Xarelto Supervising Physician Co-Signing Physician Notes Patient seen and examined, chart reviewed, case discussed with KIRIT Pierce and I agree with the assessment and plan as above except as otherwise noted Labs and images reviewed Velma Edgar is a 71-year-old female with past medical history of pulmonary emboli on Xarelto, hyperlipidemia, macrocytic anemia, GERD, depression/anxiety who presents to the ER for global weakness and with an outpatient hemoglobin draw which showed acute anemia. She did have some dysuria, has not had any br ight red blood per rectum or melena. At time of bedside assessment patient reports that she is little lightheaded and still feels weak, lazy right eye at baseline. She reports she is extremely nervous and has severe anxiety/depression. She denies palpitations, shortness of breath, difficulty breathing but endorses global fatigue. She would like another word search, and does not want her to leave the bedside. Would also like the blood given as soon as possible, expresses an understanding that it is on its way from [place]. No other questions or concerns at bedside Anemia Acute on chronic, macrocytic. Hemoccult negative. No acute blood loss. No pain. Imaging deferred. Pending 1 to 2 units transfused. Iron labs pending, LDH 412, recent haptoglobin 37. Patient has prominent thrombocytosis. Peripheral smear pending, patient with some concern for MDS and recommend follow-up with hematology as above. Macrocytosis with elevated RDW.. Management as above. TTE 01/16/2022: Normal LV SF, hyperdynamic, EF 70%. No valvular abnormalities. RVSP 56 Anxiety/depression Recently cross tapered to Lexapro Avoid benzos if possible PG Care Time/CCT Total # of Minutes Spent Total Time Spent with Patient: Total time spent is greater than 50% in coordination of care (as documented) at patient's floor/unit and/or counseling patient: Coding Level of Care Code 51908 Initial Inpt Care Lvl 3 Diagnoses Anemia D64.9 Thrombocytosis D75.839 Generalized anxiety disorder F41.1 Major depression F32.9 Elevated bilirubin R17 Insomnia G47.00 GERD (gastroesophageal reflux disease) K21.9 Pulmonary emboli I26.99 Acute cor pulmonale presence: unspecified Chronicity: acute Pulmonary embolism type: unspecified Hyperlipidemia E78.5 (1) Pulmonary emboli Acute cor pulmonale presence: unspecified Chronicity: acute Pulmonary embolism type: unspecified Qualified Code(s): I26.99 - Other pulmonary embolism without acute cor pulmonale
--- NOTE | 2022-03-04 15:38 | Electrocardiogram Report ---
Test Reason : Blood Pressure : / mmHG Vent. Rate : 121 BPM Atrial Rate : 121 BPM P-R Int : 146 ms QRS Dur : 080 ms QT Int : 334 ms P-R-T Axes : 016 022 006 degrees QTc Int : 474 ms Sinus tachycardia Low voltage QRS Borderline ECG When compared with ECG of 15-JAN-2022 15:01, No significant change Confirmed by Tha Garcia ([id number]) on 03/04/2022 3:38:09 PM Referred By: Thelma England Confirmed By:Tha Garcia
[2022-03-04] MEDS ORDERED: PANTOprazole 40 MG in SYRINGE 0 ML IV ONE (17:12)
[2022-03-04] MEDS ORDERED: ACETAMINOPHEN 325 MG TAB PO PRN (17:12)
[2022-03-04 17:55] LABS: Appearance Urine Clear (Clear); Bacteria Urine Automated Negative (Negative); Bilirubin Urine Negative (Negative); Blood Urine Negative (Negative); Color Urine Yellow; Glucose Urine UA Negative (Negative); Ketones Urine Negative (Negative); Leukocyte Esterase Urine 1+ (Negative); Nitrite Urine Negative (Negative); Protein Urine Negative (Negative); RBC Urine Automated 0-4 /hpf (0-4); Specific Gravity Urine 1.003 (1.000-1.030); Urobilinogen Urine Negative (Negative); pH Urine 6.5 (4.5-7.5)
[2022-03-04] MEDS: RIVAROXABAN 20 MG TAB PO SCH (18:19)
[2022-03-04] MEDS: ALPRAZolam 0.5 MG TABLET PO PRN (22:00)
[2022-03-04] MEDS: PANTOprazole 40 MG in SYRINGE 0 ML IV SCH (22:00)
[2022-03-04] MEDS: SIMVASTATIN 40 MG TAB PO SCH (22:00)
[2022-03-05] MEDS ORDERED: MIRTAZAPINE TAB 15 MG TAB PO ONE (00:23)
[2022-03-05 07:01] LABS: Hemoglobin 5.1 g/dl (12.0-16.0); Mean Corpuscular Hemoglobin 35.7 pg (25.0-34.0); Mean Corpuscular Hgb Conc 28.3 g/dL (32.0-36.0); Mean Corpuscular Volume 125.9 fL (80.0-100.0); Mean Platelet Volume 9.2 fL (9.4-12.3); Nucleated RBC # (auto) 0.08 K/uL (0-0); Nucleated RBC % (auto) 0.9 %; Platelet Count 956 K/uL (130-400); RDW Coefficient of Variation 18.6 % (11.5-14.5); Red Blood Count 1.43 M/uL (3.93-5.22); White Blood Count 9.36 K/ul (4.8-10.8)
[2022-03-05 07:02] LABS: BUN Creatinine Ratio 11.8 (10-20); Calcium 8.6 mg/dl (8.5-10.1); Creatinine Clr Calc Pharmacy 51.2 ml/min; Est GFR (African American) 63.2 ml/min; Est GFR (Non-African American) 54.5 ml/min; Magnesium 2.2 mg/dl (1.7-2.4); Potassium 3.9 mmol/L (3.5-5.1)
[2022-03-05 07:20] LABS: Ferritin 305.2 ng/ml (8-388)
[2022-03-05 07:25] LABS: Folate (Folic Acid) > 22.30 ng/ml (>5.38)
[2022-03-05 07:26] LABS: Vitamin B12 320 pg/ml (180-914)
[2022-03-05 08:47] LABS: Basophilic Stippling 1+; Basophils # (auto) 0.04 K/uL (0-0.2); Basophils % (auto) 0.4 %; Eosinophils # (auto) 0.13 K/uL (0-0.50); Eosinophils % (auto) 1.4 %; Hypochromasia Present; Immature Granulocytes % (auto) 4.3 %; Lymphocytes # (auto) 1.89 K/uL (1.2-3.4); Lymphocytes % (auto) 20.2 %; Macrocytosis Present; Monocytes # (auto) 0.46 K/uL (0.24-0.82); Monocytes % (auto) 4.9 %; Neutrophils # (auto) 6.44 K/uL (1.4-6.5); Neutrophils % (auto) 68.8 %; Polychromasia 3+; Tear Drop Cells 1+
[2022-03-05] MEDS: ESCITALOPRAM OXALATE 10 MG TAB PO SCH (09:36)
[2022-03-05] MEDS: POLYETHYLENE (MIRALAX) 17 GM PACK PO SCH (09:37)
[2022-03-05] MEDS: ALPRAZolam 0.5 MG TABLET PO PRN (09:39)
[2022-03-05] MEDS: PANTOprazole 40 MG in SYRINGE 0 ML IV SCH (10:14)
[2022-03-05 10:59] LABS: Albumin Level 3.6 gm/dl (3.4-5.0); Bilirubin Direct 0.5 mg/dl (0-0.2); Bilirubin,Total 3.3 mg/dl (0.2-1.0); Total Protein 4.9 gm/dl (6.0-8.3)
[2022-03-05] MEDS: RIVAROXABAN 20 MG TAB PO SCH ×2 (11:06→19:19)
[2022-03-05] MEDS ORDERED: predniSONE 10 MG TABLET PO STA (17:08)
--- NOTE | 2022-03-05 17:36 | Hospitalist Progress Note ---
Date of Service March 05, 2022 Assessment & Plan (1) Autoimmune hemolytic anemia: Plan: Anemia acute on chronic- macrocytic from reticulocytosis not associated with blood loss With +YELITZA B12 borderline low-replace LDH- has been elevated since January and again elevated here. Haptoglobin low from previous admission Received PRBC transfusion today x 2 units Appreciate Hematology consult-check CT C/A/P to assess for occult malignancy -follow CBC, LDH, retic count, LFTs, haptoglobin -iron studies normal in January check genomic studies for PNH, myeloproliferative disorder - Transfuse as needed for hgb > 7 -start folic acid 1 mg daily - Follow CBC in AM -changed to PPI for GI protection due to high dose steroids starting -start prednisone 1mg/kg po daily and if not improving, may need IVIG -ok to continue Xarelto for recent PEs/DVT (2) Thrombocytosis: Plan: Likely reactive to anemia check myeloprolif panel (3) Generalized anxiety disorder: Plan: Remains with self-reported severe symptoms without suicidal ideations - endorses multiple triggering events that occurred prior to her admission in January - Psych evaluation completed last admission with taper of Celexa and addition Lexapro -consult Psych here at her request due to severe anxiety and depression continue Lexapro, lorazepam prn (Xanax dcd by her outpt Psych) (4) Major depression: Plan: As above (5) Elevated bilirubin: Plan: 2/2 hemolysis follow LFTs checking CT A/P (6) Insomnia: Plan: Continue Remeron, lorazepam (7) GERD (gastroesophageal reflux disease): Plan: switch pepcid from home to PPI (8) Pulmonary emboli: Plan: Bilateral PE lobar and segmental 01/31 - Continue Xarelto 20mg PO daily- takes at 1900 - Hold if bleeding becomes evident, hemodynamically unstable, or other pathology revealed (9) Hyperlipidemia: Plan: Continue Simvastatin 40mg nightly Plan Dispo-continued stay Admission and Anticipated Discharge Date Admission Date: March 04, 2022 Subjective Pt severely anxious, wants to leave hospital, wants her depression and anxiety to be better. Denies headache, SOB, CP, nausea, abd pain, no bleeding from anywhere. Discussed her current health issues and answered all questions from her and . Discussed care with Oncology Review of Systems Review of Systems: All systems reviewed & are unremarkable except as noted in HPI & below Physical Exam Constitutional: WD/WN, vitals as above Eyes: PERRL, conjunctivae normal, anicteric sclerae (with chronic right ptosis) ENMT: external ear and nose normal, oropharynx normal Neck: trachea midline, no thyromegaly Respiratory: normal respiratory effort, lungs clear to auscultation Cardiovascular: RRR, no murmur, no edema Chest (Breasts): Chest: normal inspection of chest Gastrointestinal (Abdomen): normal bowel sounds, soft, nontender, no hepatosplenomegaly Musculoskeletal: Extremities: extremities normal to inspection; no cyanosis and no clubbing Skin: no rashes, warm and dry Neurologic: moves all extremities and awake; no focal motor deficits Psychiatric: Orientation: alert, oriented x 3 and cooperative Affect: + depressed affect and + anxious affect Lymphatic: no lymphedema Results & Data Results & Data ([facility]) Vital Signs (Past 12 Hours) Vital Signs Temp Pulse Resp BP Pulse Ox 03/05/22 15:59 37.2 C 85 18 115/57 L 94 03/05/22 15:39 37.2 C 109 H 20 116/66 94 03/05/22 14:39 37.2 C 115 H 18 109/58 L 93 03/05/22 14:09 37.2 C 86 18 116/56 L 95 03/05/22 13:54 37.4 C 134/63 03/05/22 13:53 37.4 C 88 20 134/63 96 03/05/22 13:39 37.3 C 91 H 21 116/50 L 94 03/05/22 12:18 37.2 C 86 20 121/55 L 96 03/05/22 11:18 37.2 C 92 H 20 121/58 L 93 03/05/22 10:48 37.2 C 95 H 19 109/59 L 94 03/05/22 10:33 37.2 C 122 H 16 121/63 97 03/05/22 10:18 37.1 C 97 H 17 137/58 L 95 Laboratory Results labs reviewed PG Care Time/CCT Total # of Minutes Spent Total Time Spent with Patient: Total time spent is greater than 50% in coordination of care (as documented) at patient's floor/unit and/or counseling patient: Coding Level of Care Code 84068 Subseq Hosp Care Lvl 3 Diagnoses Autoimmune hemolytic anemia D59.10 Thrombocytosis D75.839 Generalized anxiety disorder F41.1 Major depression F32.9 Elevated bilirubin R17 Insomnia G47.00 GERD (gastroesophageal reflux disease) K21.9 Pulmonary emboli I26.99 Acute cor pulmonale presence: unspecified Chronicity: acute Pulmonary embolism type: unspecified Hyperlipidemia E78.5 (1) Pulmonary emboli Acute cor pulmonale presence: unspecified Chronicity: acute Pulmonary embolism type: unspecified Qualified Code(s): I26.99 - Other pulmonary embolism without acute cor pulmonale
--- NOTE | 2022-03-05 17:55 | Consultation Report ---
DATE OF SERVICE: 03/05/2022. REASON FOR CONSULTATION: Anemia and thrombocytosis. HISTORY OF PRESENT ILLNESS: The patient is a 71-year-old female with history of extensive bilateral PEs diagnosed during her prior admission to [facility] on 01/15/2022. During that admission, she was also noted to be anemic with low haptoglobin. She presented to the ER at [facility] on 03/04/2022 with complaints of fatigue, palpitations and dizziness. On arrival to the ED, hemoglobin labs revealed severe anemia with hemoglobin of 5.4, thrombocytosis with platelet count of 1 million and 41,000, microcytosis with MCV of 125 with hyperbilirubinemia with total bilirubin of 3.1. Workup obtained since admission including peripheral smear review by pathology revealed thrombocytosis, reticulocytosis and mild leukocytosis with neutrophilia. No evidence of schistocytes or spherocytes noted on peripheral smear. Arthur test was positive for IgG and also weakly positive for C3b. ALLERGIES: No known drug allergies. HOME MEDICATIONS: 1. Famotidine. 2. Simvastatin. 3. Alprazolam. 4. Lexapro. 5. Xarelto. PAST MEDICAL HISTORY: 1. Bilateral pulmonary embolisms. 2. GERD. 3. Hyperlipidemia. PAST SURGICAL HISTORY: Not significant. FAMILY HISTORY: Not significant. SOCIAL HISTORY: Denies smoking, alcohol and illicit drug use. REVIEW OF SYSTEMS: Essentially unrevealing except as noted in HPI. PHYSICAL EXAMINATION: Essentially unrevealing. LABORATORY TESTING RESULTS: CBC on 03/05/2022, significant for white count of 9.36, hemoglobin of 5.1, hematocrit of 81 with MCV of 125.9, platelet count of 956,000. Total bilirubin of 3.3, direct bilirubin of 0.5, LDH of 350, vitamin B12 level in 320. Folate 22.3. ASSESSMENT AND PLAN: 1. Warm autoimmune hemolytic anemia. 2. Thrombocytosis of unclear etiology. 3. Recent history of bilateral pulmonary embolisms. Pleasant 71-year-old female who presented with fatigue and palpitations, found to be severely anemic with laboratory testing consistent with hemolytic anemia. Suspect that she has warm autoimmune hemolytic anemia given positive YELITZA with anti-IgG and weakly positive antiC3. Unclear if thrombocytosis is due to reactive process versus myeloproliferative neoplasm/malignancy. Recommend treating with prednisone or Solu-Medrol 1 mg/kg per day until hemoglobin is greater than 12 mg/dL, after which steroids can be tapered weekly by about 20 mg over 4-8 weeks. If she does not respond to high-dose steroids, will consider treating her inpatient with IVIG. Also, recommend obtaining CT chest, abdomen and pelvis to rule out underlying malignancy potential cause of warm autoimmune hemolytic anemia in the setting of recent diagnosis of unprovoked bilateral PEs. Would also obtain flow cytometry to evaluate for PNH given hemolytic anemia and recent diagnosis of extensive bilateral PEs. Regarding her thrombocytosis, although this could be reactive, she also may have underlying myeloproliferative neoplasm, which could be responsible for her AIHA and as such, we will obtain molecular testing for JAK2, CALR/MPL mutations to rule out underlying myeloproliferative neoplasm. 1. Recommend starting high-dose steroids with prednisone or Solu-Medrol 1 mg/kg per day. 2. Recommend obtaining CT chest, abdomen and pelvis. 3. Will obtain flow cytometry to rule out paroxysmal nocturnal hemoglobinuria. We will also obtain molecular testing to rule out myeloproliferative neoplasm. 4. Recommend starting folic acid 1 mg p.o. daily. 5. Recommend checking FOBT to rule out GI bleeding given possible positive FOBT on 01/29/2022. 6. Recommend checking hemolytic labs including total/direct bilirubin, LDH, haptoglobin, reticulocyte count and CBC twice a day until hemoglobin is greater than 8. Thank you for this consult. Hematology will continue following the patient while in the hospital. Please feel free to call if you have any further questions. Job ID: [id number] [facility]
[2022-03-05 18:08] LABS: Hematocrit (blood only) 23.4 % (34.1-44.9); Hemoglobin 7.4 g/dl (12.0-16.0); Mean Corpuscular Hemoglobin 33.9 pg (25.0-34.0); Mean Corpuscular Hgb Conc 31.6 g/dL (32.0-36.0); Mean Corpuscular Volume 107.3 fL (80.0-100.0); Mean Platelet Volume 9.2 fL (9.4-12.3); Nucleated RBC # (auto) 0.14 K/uL (0-0); Nucleated RBC % (auto) 1.4 %; Platelet Count 865 K/uL (130-400); RDW Coefficient of Variation 25.1 % (11.5-14.5); RDW Standard Deviation 94.1 fL (36.4-46.3); Red Blood Count 2.18 M/uL (3.93-5.22); White Blood Count 9.86 K/ul (4.8-10.8)
[2022-03-05 18:29] LABS: Anisocytosis Present; Basophils # (auto) 0.04 K/uL (0-0.2); Basophils % (auto) 0.4 %; Eosinophils # (auto) 0.11 K/uL (0-0.50); Eosinophils % (auto) 1.1 %; Immature Granulocytes # (auto) 0.42 K/uL (0.00-0.02); Immature Granulocytes % (auto) 4.3 %; Lymphocytes # (auto) 1.61 K/uL (1.2-3.4); Lymphocytes % (auto) 16.3 %; Monocytes # (auto) 0.49 K/uL (0.24-0.82); Neutrophils # (auto) 7.19 K/uL (1.4-6.5); Neutrophils % (auto) 72.9 %; Polychromasia 2+; Tear Drop Cells 1+
[2022-03-05 19:29] LABS: Albumin Level 3.7 gm/dl (3.4-5.0); Bilirubin Direct 0.5 mg/dl (0-0.2); Bilirubin,Total 2.9 mg/dl (0.2-1.0); Total Protein 6.2 gm/dl (6.0-8.3)
[2022-03-05] MEDS: CYANOCOBALAMIN 1000 MCG/ML VIAL IM SCH (19:32)
[2022-03-05] MEDS: LORazepam 1 MG TAB PO PRN (19:33)
[2022-03-05] MEDS ORDERED: RIVAROXABAN 20 MG TAB PO SCH (20:00)
[2022-03-05] MEDS: PANTOprazole 40 MG TAB PO SCH (21:41)
[2022-03-05] MEDS: MIRTAZAPINE TAB 15 MG TAB PO SCH (21:42)
[2022-03-05] MEDS: SIMVASTATIN 40 MG TAB PO SCH (21:42)
[2022-03-06] MEDS ORDERED: OPTIRAY 300 500mL IV ONE (00:37)
[2022-03-06 07:51] LABS: Hematocrit (blood only) 26.2 % (34.1-44.9); Mean Corpuscular Hemoglobin 33.9 pg (25.0-34.0); Mean Corpuscular Hgb Conc 30.5 g/dL (32.0-36.0); Mean Platelet Volume 9.1 fL (9.4-12.3); Nucleated RBC # (auto) 0.08 K/uL (0-0); Nucleated RBC % (auto) 0.6 %; Platelet Count 912 K/uL (130-400); RDW Coefficient of Variation 25.2 % (11.5-14.5); RDW Standard Deviation 100.4 fL (36.4-46.3); Red Blood Count 2.36 M/uL (3.93-5.22); Reticulocyte % 21.9 % (0.5-2.0); Reticulocytes # 0.52 10^6/uL (0.02-0.10); White Blood Count 12.52 K/ul (4.8-10.8)
[2022-03-06 08:20] LABS: Albumin Level 3.7 gm/dl (3.4-5.0); BUN Creatinine Ratio 18.6 (10-20); Bilirubin Direct 0.3 mg/dl (0-0.2); Bilirubin,Total 2.5 mg/dl (0.2-1.0); Calcium 8.8 mg/dl (8.5-10.1); Creatinine Clr Calc Pharmacy 60.8 ml/min; Est GFR (African American) 77.7 ml/min; Potassium 4.1 mmol/L (3.5-5.1); Total Protein 6.3 gm/dl (6.0-8.3)
[2022-03-06 08:26] LABS: Anisocytosis Present; Basophils # (auto) 0.04 K/uL (0-0.2); Basophils % (auto) 0.3 %; Eosinophils # (auto) 0.01 K/uL (0-0.50); Eosinophils % (auto) 0.1 %; Immature Granulocytes # (auto) 0.73 K/uL (0.00-0.02); Immature Granulocytes % (auto) 5.8 %; Lymphocytes # (auto) 1.09 K/uL (1.2-3.4); Lymphocytes % (auto) 8.7 %; Macrocytosis Present; Monocytes # (auto) 0.29 K/uL (0.24-0.82); Monocytes % (auto) 2.3 %; Neutrophils # (auto) 10.36 K/uL (1.4-6.5); Neutrophils % (auto) 82.8 %; Polychromasia 3+; Tear Drop Cells 1+
--- NOTE | 2022-03-06 08:54 | CT Scan Report ---
CT OF THE CHEST WITH IV CONTRAST CLINICAL HISTORY: assess for malignancy with hemolytic anemia COMPARISON STUDY: Chest radiograph and chest CT January 15, 2022. TECHNIQUE: Following IV administration of 90 mL of Optiray, helical axial images of the chest were o btained. Sagittal and coronal reconstructions were viewed as well as maximal intensity projections o n an independent 3-D workstation. Automated exposure control was utilized for the study. A dose low ering technique was utilized adhering to the principles of ALARA. CT DOSE: 1128.89 mGy.cm FINDINGS: No enlarged axillary, mediastinal or hilar lymph nodes are present. Mild cardiomegaly is n oted. There is no pericardial effusion. Note is made of a cystic 2.6 cm left lobe thyroid nodule. Thi s is likely benign. No pneumothorax or pleural effusion is present. There are no suspicious pulmonary nodules. A few small perifissural nodules are likely benign. Central airways are patent. Subpleural ground glass opacities reflect atelectasis. There is no suspicious lesion within the bony thorax. Abd omen and pelvis CT will be reported separately. A few suspected hepatic cysts are present. Small hiat al hernia. IMPRESSION: 1. No convincing evidence for malignancy within the chest. 2. No acute intrathoracic findings. ACT 112: Negative or not required by law. Electronically signed by: Perry Dai M.D. 03/06/2022 8:53 AM
[2022-03-06] MEDS: ESCITALOPRAM OXALATE 10 MG TAB PO SCH (09:09)
[2022-03-06] MEDS: CYANOCOBALAMIN 1000 MCG/ML VIAL IM SCH (09:09)
[2022-03-06] MEDS: FOLIC ACID 1 MG TAB PO SCH (09:10)
[2022-03-06] MEDS: POLYETHYLENE (MIRALAX) 17 GM PACK PO SCH (09:10)
[2022-03-06] MEDS: PANTOprazole 40 MG TAB PO SCH (09:10)
[2022-03-06] MEDS: predniSONE 20 MG TAB PO SCH (09:10)
[2022-03-06] MEDS: LORazepam 1 MG TAB PO PRN ×2 (09:11→21:15)
--- NOTE | 2022-03-06 10:56 | CT Scan Report ---
CT abd pelvis IV con only CLINICAL HISTORY: assess for malignancy with hemolytic anemia TECHNIQUE: Helical axial images of the abdomen and pelvis were obtained and displayed. Automated dose lowering techniques and/or adjustment according to patient size were utilized for this exam. This e xam was performed with intravenous contrast. COMPARISON: Comparison is made to CT abdomen pelvis 08/08/2017 FINDINGS: Lower chest: For findings above the diaphragm, please see CT chest performed same day. Liver: Hepatic cysts are seen. Gallbladder and biliary tree: No calcified gallstones. Normal caliber wall. No intra- or extrahepatic biliary ductal dilation. Pancreas: Unremarkable, no focal lesions. Spleen: Unremarkable. Adrenals: Unremarkable. Kidneys and ureters: Bilateral parapelvic cysts are seen. Bladder: Limited evaluation due to underdistention. Reproductive organs: Unremarkable. Bowel: Diverticulosis is seen without evidence of diverticulitis. The appendix is normal. A hiatal he rnia is seen. Lymph nodes Retroperitoneal: Unremarkable. Pelvic: Unremarkable. Mesenteric: Unremarkable. Peritoneum: Normal. Vessels: Atherosclerotic calcifications are seen. Abdominal wall: A fat-containing umbilical hernia is seen. Bones: Degenerative changes in the visualized spine. No suspicious lesions are seen in the bones. IMPRESSION: No acute abnormalities and in particular no evidence of suspicious bony lesions in this patient with anemia. ACT 112: Negative or not required by law. Electronically signed by: Wicho Boyd M.D. 03/06/2022 10:54 AM
--- NOTE | 2022-03-06 11:21 | Hospitalist Progress Note ---
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 LDH- has been elevated since January and again elevated here. Haptoglobin low from previous admission Received PRBC transfusion x 2 units on admission hemoglobin up to 8.0 today Appreciate Hematology consult-check CT C/A/P to assess for occult malignancy- negative except for thyroid nodule which is likely benign as per radiology report LDH about the same today, total bilirubin trending downward, hemoglobin up to 8.0 from 5.1 after 2 units which is promising Follow CBC, LDH, LFTs again this afternoon and in the morning -Haptoglobin pending -iron studies normal in January -Check genomic studies for PNH, myeloproliferative disorder-pending - Transfuse as needed for hgb > 7 -started folic acid 1 mg daily -changed to PPI for GI protection due to high dose steroids starting -started prednisone 1mg/kg po daily and if not improving, may need IVIG -ok to continue Xarelto for recent PEs/DVT (2) Thrombocytosis: Plan: Likely reactive to anemia-slightly increased today to 912 check myeloprolif panel-pending Follow CBC (3) Generalized anxiety disorder: Plan: Remains with self-reported severe symptoms without suicidal ideations - endorses multiple triggering events that occurred prior to her admission in January - Psych evaluation completed last admission with taper of Celexa and addition Lexapro-pending -consult Psych here at her request due to severe anxiety and depression continue Lexapro, lorazepam prn (Xanax dcd by her outpt Psych) (4) Major depression: Plan: As above (5) Elevated bilirubin: Plan: 2/2 hemolysis-improved today follow LFTs checking CT A/P-no issues on liver on imaging (6) Insomnia: Plan: Continue Remeron, lorazepam (7) GERD (gastroesophageal reflux disease): Plan: switched pepcid from home to PPI (8) Pulmonary emboli: Plan: Bilateral PE lobar and segmental 01/31 - Continue Xarelto 20mg PO daily- takes at 1900 - Hold if bleeding becomes evident, hemodynamically unstable, or other pathology revealed (9) Hyperlipidemia: Plan: Continue Simvastatin 40mg nightly Plan Dispo-continued stay Admission and Anticipated Discharge Date Admission Date: March 04, 2022 Subjective Patient feeling less anxious today and to take lorazepam. She is able to sleep last night. Still feels a little bit "shallow" in the chest but otherwise feels fine. Discussed her care with her daughter at the bedside Still having dark urine. No bowel movement since admission No chest pains or shortness of breath. No nausea or abdominal pains. Review of Systems Review of Systems: All systems reviewed & are unremarkable except as noted in HPI & below Physical Exam Constitutional: WD/WN, vitals as above Eyes: PERRL, conjunctivae normal, anicteric sclerae (with chronic right pt osis) ENMT: external ear and nose normal, oropharynx normal Neck: trachea midline, no thyromegaly Respiratory: normal respiratory effort, lungs clear to auscultation Cardiovascular: RRR, no murmur, no edema Chest (Breasts): Chest: normal inspection of chest Gastrointestinal (Abdomen): normal bowel sounds, soft, nontender, no hepatosplenomegaly Musculoskeletal: Extremities: extremities normal to inspection; no cyanosis and no clubbing Skin: no rashes, warm and dry Neurologic: moves all extremities and awake; no focal motor deficits Psychiatric: Orientation: alert, oriented x 3 and cooperative Affect: + depressed affect and + anxious affect (Improved from yesterday) Lymphatic: no lymphedema Results & Data Results & Data ([facility]) Vital Signs (Past 12 Hours) Vital Signs Temp Pulse Pulse Resp BP BP Pulse Ox 03/06/22 07:17 36.6 C 77 16 113/68 98 03/06/22 00:30 03/06/22 00:54 36.4 C L 91 H 20 142/82 H 88 L O2 Del Method O2 Flow Rate 03/06/22 07:17 Nasal Cannula 2 03/06/22 00:30 Nasal Cannula 2 03/06/22 00:54 Room Air Laboratory Results 03/06/22 03/06/22 03/06/22 Range/Units 07:19 07:19 07:19 WBC 12.52 H (4.8-10.8) K/ul RBC 2.36 L (3.93-5.22) M/uL Hgb 8.0 L (12.0-16.0) g/dl Hct 26.2 L (34.1-44.9) % MCV 111.0 H (80.0-100.0) fL MCH 33.9 (25.0-34.0) pg MCHC 30.5 L (32.0-36.0) g/dL RDW Std Deviation 100.4 H (36.4-46.3) fL RDW Coeff of Warren 25.2 H (11.5-14.5) % Plt Count 912 H (130-400) K/uL MPV 9.1 L (9.4-12.3) fL Immature Gran % (Auto) 5.8 % Neut % (Auto) 82.8 % Lymph % (Auto) 8.7 % [place] % (Auto) 2.3 % Eos % (Auto) 0.1 % Baso % (Auto) 0.3 % Reticulocyte % (Auto) 21.9 H (0.5-2.0) % Neut # (Auto) 10.36 H (1.4-6.5) K/uL Lymph # (Auto) 1.09 L (1.2-3.4) K/uL [place] # (Auto) 0.29 (0.24-0.82) K/uL Eos # (Auto) 0.01 (0-0.50) K/uL Baso # (Auto) 0.04 (0-0.2) K/uL Reticulocyte # 0.52 H (0.02-0.10) 10^6/uL Immature Gran # (Auto) 0.73 H (0.00-0.02) K/uL Absolute Nucleated RBC 0.08 H (0-0) K/uL Nucleated RBC % (auto) 0.6 % Polychromasia 3+ Anisocytosis Present Macrocytosis Present Tear Drop Cells 1+ Haptoglobin PNH Panel (Flow) Sodium 137 (136-145) mmol/L Potassium 4.1 (3.5-5.1) mmol/L Chloride 107 (98-107) mmol/L Carbon Dioxide 24 (21-32) mmol/L Anion Gap 6 (3-11) BUN 16 (6-23) mg/dl Creatinine 0.86 (0.6-1.2) mg/dl Est Cr Clr Drug Dosing 60.8 ml/min Est GFR ( Amer) 77.7 ml/min Est GFR (Non-Af Amer) 67.0 ml/min BUN/Creatinine Ratio 18.6 (10-20) Glucose 135 H (70-99(Fasting)) mg/dl Calcium 8.8 (8.5-10.1) mg/dl Total Bilirubin 2.5 H (0.2-1.0) mg/dl Direct Bilirubin 0.3 H (0-0.2) mg/dl AST 21 (13-39) U/L ALT 12 (7-52) U/L Alkaline Phosphatase 52 D (34-104) U/L Lactate Dehydrogenase 373 H (86-244) U/L Total Protein 6.3 (6.0-8.3) gm/dl Albumin 3.7 (3.4-5.0) gm/dl MPN [employer] Blood Type Antibody Screen Antibody Identification Antibody ID Comment Crossmatch 03/05/22 03/05/22 03/05/22 Range/Units 17:45 17:45 17:45 WBC 9.86 (4.8-10.8) K/ul RBC 2.18 L (3.93-5.22) M/uL Hgb 7.4 L (12.0-16.0) g/dl Hct 23.4 L (34.1-44.9) % MCV 107.3 H D (80.0-100.0) fL MCH 33.9 (25.0-34.0) pg MCHC 31.6 L D (32.0-36.0) g/dL RDW Std Deviation 94.1 H (36.4-46.3) fL RDW Coeff of Warren 25.1 H (11.5-14.5) % Plt Count 865 H (130-400) K/uL MPV 9.2 L (9.4-12.3) fL Immature Gran % (Auto) 4.3 % Neut % (Auto) 72.9 % Lymph % (Auto) 16.3 % [place] % (Auto) 5.0 % Eos % (Auto) 1.1 % Baso % (Auto) 0.4 % Reticulocyte % (Auto) (0.5-2.0) % Neut # (Auto) 7.19 H (1.4-6.5) K/uL Lymph # (Auto) 1.61 (1.2-3.4) K/uL [place] # (Auto) 0.49 (0.24-0.82) K/uL Eos # (Auto) 0.11 (0-0.50) K/uL Baso # (Auto) 0.04 (0-0.2) K/uL Reticulocyte # (0.02-0.10) 10^6/uL Immature Gran # (Auto) 0.42 H (0.00-0.02) K/uL Absolute Nucleated RBC 0.14 H (0-0) K/uL Nucleated RBC % (auto) 1.4 % Polychromasia 2+ Anisocytosis Present Macrocytosis Tear Drop Cells 1+ Haptoglobin PNH Panel (Flow) Pending Sodium (136-145) mmol/L Potassium (3.5-5.1) mmol/L Chloride (98-107) mmol/L Carbon Dioxide (21-32) mmol/L Anion Gap (3-11) BUN (6-23) mg/dl Creatinine (0.6-1.2) mg/dl Est Cr Clr Drug Dosing ml/min Est GFR ( Amer) ml/min Est GFR (Non-Af Amer) ml/min BUN/Creatinine Ratio (10-20) Glucose (70-99(Fasting)) mg/dl Calcium (8.5-10.1) mg/dl Total Bilirubin (0.2-1.0) mg/dl Direct Bilirubin (0-0.2) mg/dl AST (13-39) U/L ALT (7-52) U/L Alkaline Phosphatase (34-104) U/L Lactate Dehydrogenase (86-244) U/L Total Protein (6.0-8.3) gm/dl Albumin (3.4-5.0) gm/dl MPN [employer] Cancelled Pending Blood Type Antibody Screen Antibody Identification Antibody ID Comment Crossmatch 03/05/22 03/05/22 03/05/22 Range/Units 17:45 17:45 17:45 WBC (4.8-10.8) K/ul RBC (3.93-5.22) M/uL Hgb (12.0-16.0) g/dl Hct (34.1-44.9) % MCV (80.0-100.0) fL MCH (25.0-34.0) pg MCHC (32.0-36.0) g/dL RDW Std Deviation (36.4-46.3) fL RDW Coeff of Warren (11.5-14.5) % Plt Count (130-400) K/uL MPV (9.4-12.3) fL Immature Gran % (Auto) % Neut % (Auto) % Lymph % (Auto) % [place] % (Auto) % Eos % (Auto) % Baso % (Auto) % Reticulocyte % (Auto) (0.5-2.0) % Neut # (Auto) (1.4-6.5) K/uL Lymph # (Auto) (1.2-3.4) K/uL [place] # (Auto) (0.24-0.82) K/uL Eos # (Auto) (0-0.50) K/uL Baso # (Auto) (0-0.2) K/uL Reticulocyte # (0.02-0.10) 10^6/uL Immature Gran # (Auto) (0.00-0.02) K/uL Absolute Nucleated RBC (0-0) K/uL Nucleated RBC % (auto) % Polychromasia Anisocytosis Macrocytosis Tear Drop Cells Haptoglobin Pending PNH Panel (Flow) Sodium (136-145) mmol/L Potassium (3.5-5.1) mmol/L Chloride (98-107) mmol/L Carbon Dioxide (21-32) mmol/L Anion Gap (3-11) BUN (6-23) mg/dl Creatinine (0.6-1.2) mg/dl Est Cr Clr Drug Dosing ml/min Est GFR ( Amer) ml/min Est GFR (Non-Af Amer) ml/min BUN/Creatinine Ratio (10-20) Glucose (70-99(Fasting)) mg/dl Calcium (8.5-10.1) mg/dl Total Bilirubin 2.9 H (0.2-1.0) mg/dl Direct Bilirubin 0.5 H (0-0.2) mg/dl AST 23 (13-39) U/L ALT 11 (7-52) U/L Alkaline Phosphatase 5 L (34-104) U/L Lactate Dehydrogenase 352 H (86-244) U/L Total Protein 6.2 D (6.0-8.3) gm/dl Albumin 3.7 (3.4-5.0) gm/dl MPN [employer] Blood Type Antibody Screen Antibody Identification Antibody ID Comment Crossmatch 03/04/22 Range/Units 12:56 WBC (4.8-10.8) K/ul RBC (3.93-5.22) M/uL Hgb (12.0-16.0) g/dl Hct (34.1-44.9) % MCV (80.0-100.0) fL MCH (25.0-34.0) pg MCHC (32.0-36.0) g/dL RDW Std Deviation (36.4-46.3) fL RDW Coeff of Warren (11.5-14.5) % Plt Count (130-400) K/uL MPV (9.4-12.3) fL Immature Gran % (Auto) % Neut % (Auto) % Lymph % (Auto) % [place] % (Auto) % Eos % (Auto) % Baso % (Auto) % Reticulocyte % (Auto) (0.5-2.0) % Neut # (Auto) (1.4-6.5) K/uL Lymph # (Auto) (1.2-3.4) K/uL [place] # (Auto) (0.24-0.82) K/uL Eos # (Auto) (0-0.50) K/uL Baso # (Auto) (0-0.2) K/uL Reticulocyte # (0.02-0.10) 10^6/uL Immature Gran # (Auto) (0.00-0.02) K/uL Absolute Nucleated RBC (0-0) K/uL Nucleated RBC % (auto) % Polychromasia Anisocytosis Macrocytosis Tear Drop Cells Haptoglobin PNH Panel (Flow) Sodium (136-145) mmol/L Potassium (3.5-5.1) mmol/L Chloride (98-107) mmol/L Carbon Dioxide (21-32) mmol/L Anion Gap (3-11) BUN (6-23) mg/dl Creatinine (0.6-1.2) mg/dl Est Cr Clr Drug Dosing ml/min Est GFR ( Amer) ml/min Est GFR (Non-Af Amer) ml/min BUN/Creatinine Ratio (10-20) Glucose (70-99(Fasting)) mg/dl Calcium (8.5-10.1) mg/dl Total Bilirubin (0.2-1.0) mg/dl Direct Bilirubin (0-0.2) mg/dl AST (13-39) U/L ALT (7-52) U/L Alkaline Phosphatase (34-104) U/L Lactate Dehydrogenase (86-244) U/L Total Protein (6.0-8.3) gm/dl Albumin (3.4-5.0) gm/dl MPN [employer] Blood Type O Negative Antibody Screen POSITIVE A Antibody Identification Auto Del Real Agglutinin Antibody ID Comment Cancelled Crossmatch See Detail PG Care Time/CCT Total # of Minutes Spent Total Time Spent with Patient: Total time spent is greater than 50% in coordination of care (as documented) at patient's floor/unit and/or counseling patient: Coding Level of Care Code 92620 Subseq Hosp Care Lvl 3 Diagnoses Autoimmune hemolytic anemia D59.10 Thrombocytosis D75.839 Generalized anxiety disorder F41.1 Major depression F32.9 Elevated bilirubin R17 Insomnia G47.00 GERD (gastroesophageal reflux disease) K21.9 Pulmonary emboli I26.99 Acute cor pulmonale presence: unspecified Chronicity: acute Pulmonary embolism type: unspecified Hyperlipidemia E78.5 (1) Pulmonary emboli Acute cor pulmonale presence: unspecified Chronicity: acute Pulmonary embolism type: unspecified Qualified Code(s): I26.99 - Other pulmonary embolism without acute cor pulmonale
--- NOTE | 2022-03-06 11:52 | Psychiatric Consultation ---
Date of Consultation March 06, 2022 Impression / Recommendations Impression This is a 71 yo with a history of depression, anxiety admitted medically. Diagnostically consistent with MDD with anxious distress as well as adjustment disorder with mixed anxiety and depressed mood in the context of recent medical problems and multiple neurovegetative symptoms likely due to a combination of anemia as well due to depression, there may also be a component of mild delirium vs cognitive impairment vs pseudodementia in context of depression as she seems to forget some recent details but her was able to provide collateral. Acute risk of self-harm is low given denial of SI, no history of prior attempts, significant reasons for living and outpatient providers. They are not interested in nor do they meet criteria for inpatient psychiatric hospitalization at this time. Could consider further medication adjustments but she and her would prefer to see if energy level improves with ongoing treatment for anemia and to allow outpateint therapy to help with some of her coping skills. Reviewed some coping skills she can use when she feels overwhelmed and anxious. Sodium is normal and no evidence of prolonged QTc. (1) Adjustment disorder with mixed anxiety and depressed mood: (2) Major depression: (3) Generalized anxiety disorder: (4) Autoimmune hemolytic anemia: (5) Symptomatic anemia: Plan -Agree with ongoing medical care to improve anemia which should increase energy and improve her mood -Agree with escitalopram, will increased to her TRANSACTIONAL ATTORNEY dose of 20mg qd -C/w mirtazapine, could be increased in outpatient setting by her psychiatrist if needed should treatment of anemia not offer enough benefit for helping with energy/mood. -She's started outpatient therapy which should also help with depression and an xiety over time Psych History Identifying Data 71 yo woman with history of anxiety and depression admitted medically for an emia, worsened mood and weakness/fatigue. Psychiatry was consulted for recommendations. Chief Complaint "I used to be a social butterfly, I want to get back to that". History of Present Illness Admitted for worsening anemia with increase in depression and anxiety largely due to fatigue and frustration that she continues to medical problems and doesn't have as much energy as she used to and feels very weak. She has continued to take escitalopram, mirtazapine, and ativan prn. She is also on prednisone. Further history per psych liason assessment last night: "This RN met with pt for psych liaison consult. Pts daughter at bedside, pt agreeable to discuss concerns with her present. Pt has hx of depression and anxiety, compliant with medications and appointments. Recently began therapy, only had one session with client server programmer at [facility]. Reports increase in depressive sx since early January. Unable to identify any specific trigger, rather an accumulation of events that may have increased anxiety and depression. An older neighbor had fallen and was hospitalized, a family member was injured from a bicycle accident, but the main source of her anxiety seems to come from her medical issues. Pt repeated numerous times that she just wants to be like she used to, and feel better. Daughter explained that up until January pt had hobbies she enjoyed, had a good appetite, was social, but then it was like a "flip of a switch". Pt lost interest in reading, cooking, ect, poor sleep, poor appetite, and no energy or motivation. Admits to thoughts of passive SI, just going to sleep and not waking up. Denies plan or intent. Pt lives with daughter and , she feels supported at home." Today she is tearful when I meet with her, and her is also at bedside. She expresses frustration that her concentration is not as good as it was and that she is weak and feels tired. Her notes that she sleeps well but always feels tired in the morning. Reviewed PHQ-9 for which she had a total score of 23 with highest scores related to iisues with energy level, depressed mood, difficulty staying asleep, low energy, poor appetite, difficulty with concentration and weakness causing her to move more slowly. She endorsed passive SI with psych liason last night but on reassessment by psych liason today and again with me she denies any SI stating that she wishes she could fall asleep and wake up feeling better with more energy but adamantly denies any passive or active SI rather states "I'm afraid of dying" and thus has anxiety due to worsening medical issues. Her confirms that he's never heard her make statements about SI nor any history of prior attempts. She denies any history of prior suicide attempts and notes many strong reasons for living including her family and hopes of one day having a great grandchild. She has outpatient psychiatric care with Dr. Tse and started therapy at [facility]. Her lexapro dose was increased to 20mg at the end of January per her . She feels her other medications are working well but wishes that she would improve faster. Both she and her confirm she only uses the ativan sparingly at home as needed for severe anxiety, reviewed risks of benzos in older adults including potential for falls, weakness, addictive potential. Past Psychiatric History Outpatient Services: see HPI Allergies Allergy/AdvReac Type Severity Reaction Status Date / Time No Known Allergies Allergy Unverified 02/06/22 17:22 Home Medications Medication Instructions Recorded Confirmed Type famotidine 20 mg tablet 20 mg PO BID 01/15/22 03/04/22 History simvastatin 40 mg tablet 40 mg PO HS 01/15/22 03/04/22 History rivaroxaban 20 mg tablet (Xarelto) 20 mg PO QPM 02/06/22 03/04/22 History escitalopram oxalate 20 mg tablet 20 mg PO QAM 03/04/22 03/04/22 History lorazepam 1 mg tablet 0.5 - 1 mg PO BID PRN severe 03/04/22 03/04/22 History anxiety mirtazapine 15 mg tablet 15 mg PO HS 03/04/22 03/04/22 History trazodone 50 mg tablet 25 mg PO HS PRN Sleep 03/04/22 03/04/22 History Substance Abuse History denies Personal History Employment Status: Retired Marital Status: Beliefs That Will Affect Care: None Patient History Medical History Autoimmune hemolytic anemia Chronic low back pain Congenital ptosis of right eyelid GERD (gastroesophageal reflux disease) Hx of colonic polyps Hyperlipidemia Surgical History H/O cataract extraction b/l Family History Father Myocardial infarction Mother Pancreatitis Denies family history of Deep vein thrombosis Pulmonary embolism Social History Smoking Status: Never smoker Second Hand Exposure: No; Hx Alcohol Use: No Hx Substance Use: No Preferred Language: Tajik Communication Ability: Effective Retail 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 Manager Required: No Beliefs That Will Affect Care: None marital status: Current Living Situation: Spouse Current Living Situation Comment: in [place] current occupational status: retired How many Children do You have: 2 How many Children do You have Comment: 1 son, 1 daughter Other Information That Helps Us Care for You: No Feels Safe at Home: Yes Safety Concerns: Feels Safe At This Time Assistive Devices: None Physical Exam Psychiatric: Orientation: alert and oriented x 3 Apperance: appropriately dressed and appropriately groomed Eye Contact: good eye contact Motor Behavior: no abnormal motor movements Speech: normal rate/rhythm/volume of speech Affect: + depressed affect, + anxious affect and + tearful affect Mood: + depressed mood and + anxious mood Thought Process: goal directed thought process Thought Content: reality based without delusions Suicidal Thoughts: denies suicidal thoughts Homicidal Thoughts: denies homicidal thoughts Hallucinations: no auditory hallucinations and no visual hallucinations Cognition: attention grossly intact and language grossly intact Estimated Intelligence: consistent with education level Insight: + limited insight Judgement: + limited judgement Vital Signs (Past 24 Hours): Last Vital Signs Temp 36.6 C 03/06/22 07:17 Pulse 77 03/06/22 07:17 Resp 16 03/06/22 07:17 BP 113/68 03/06/22 07:17 Pulse Ox 98 03/06/22 07:17 O2 Del Method 03/06/22 07:17 O2 Flow Rate 2 03/06/22 07:17 Review of Systems All systems reviewed & are unremarkable except as noted in HPI & below Results & Data (PSY) Medications Administered Cyanocobalamin (Cyanocobalamin 1000 Mcg/Ml Vial) 1,000 mcg IM QAM [facility] Stop: 03/07/22 09:01 Last Admin: 03/06/22 09:09 Dose: 1,000 mcg Documented By: Admin: 03/05/22 19:32 Dose: 1,000 mcg Documented By: SP Escitalopram Oxalate (Escitalopram Oxalate 10 Mg Tab) 10 mg PO QAM [facility] Stop: 04/04/22 08:59 Last Admin: 03/06/22 09:09 Dose: 10 mg Documented By: Admin: 03/05/22 09:36 Dose: 10 mg Documented By: MARTINA Folic Acid (Folic Acid 1 Mg Tab) 1 mg PO QAM [facility] Stop: 04/05/22 08:59 Last Admin: 03/06/22 09:10 Dose: 1 mg Documented By: HALINA Lorazepam (Lorazepam 1 Mg Tab) 1 mg PO Q12 PRN PRN Reason: anxiety Stop: 04/04/22 17:08 Last Admin: 03/06/22 09:11 Dose: 1 mg Documented By: Admin: 03/05/22 19:33 Dose: 1 mg Documented By: SP Mirtazapine (Mirtazapine Tab 15 Mg Tab) 15 mg PO HS [facility] Stop: 04/04/22 20:59 Last Admin: 03/05/22 21:42 Dose: 15 mg Documented By: SP Polyethylene Glycol (Polyethylene (Miralax) 17 Gm Pack) 17 gm PO DAILY [facility] Stop: 04/04/22 08:59 Last Admin: 03/06/22 09:10 Dose: 17 gm Documented By: Admin: 03/05/22 09:37 Dose: 17 gm Documented By: MARTINA Prednisone (Prednisone 20 Mg Tab) 90 mg PO QAM [facility] Stop: 04/05/22 08:59 Last Admin: 03/06/22 09:10 Dose: 90 mg Documented By: HALINA Rivaroxaban (Rivaroxaban 20 Mg Tab) 20 mg PO DAILY@1900 [facility] Stop: 04/04/22 18:59 Last Admin: 03/05/22 19:19 Dose: 20 mg Documented By: SP Simvastatin (Simvastatin 40 Mg Tab) 40 mg PO [facility] Stop: 04/03/22 20:59 Last Admin: 03/05/22 21:42 Dose: 40 mg Documented By: Admin: 03/04/22 22:00 Dose: 40 mg Documented By: PILY Coding Level of Care Code 02652 Inpt Consult Level 3 Diagnoses Adjustment disorder with mixed anxiety and depressed mood F43.23 Major depression F32.9 Generalized anxiety disorder F41.1 Autoimmune hemolytic anemia D59.10 Symptomatic anemia D64.9
[2022-03-06 14:52] LABS: Hemoglobin 7.7 g/dl (12.0-16.0); Mean Corpuscular Hemoglobin 33.6 pg (25.0-34.0); Mean Corpuscular Hgb Conc 29.6 g/dL (32.0-36.0); Mean Corpuscular Volume 113.5 fL (80.0-100.0); Mean Platelet Volume 9.2 fL (9.4-12.3); Nucleated RBC # (auto) 0.09 K/uL (0-0); Nucleated RBC % (auto) 0.6 %; Platelet Count 915 K/uL (130-400); RDW Coefficient of Variation 25.7 % (11.5-14.5); RDW Standard Deviation 102.2 fL (36.4-46.3); Red Blood Count 2.29 M/uL (3.93-5.22); White Blood Count 15.76 K/ul (4.8-10.8)
[2022-03-06 15:19] LABS: Albumin Globulin Ratio 1.5 (0.9-2); Bilirubin,Total 2.4 mg/dl (0.2-1.0); Calcium 9.1 mg/dl (8.5-10.1); Creatinine Clr Calc Pharmacy 46.7 ml/min; Est GFR (African American) 56.4 ml/min; Est GFR (Non-African American) 48.7 ml/min; Globulin 2.7 gm/dl (2.5-4.0); Potassium 4.5 mmol/L (3.5-5.1); Total Protein 6.7 gm/dl (6.0-8.3)
[2022-03-06 16:06] LABS: Anisocytosis Present; Basophils # (auto) 0.03 K/uL (0-0.2); Basophils % (auto) 0.2 %; Immature Granulocytes # (auto) 0.53 K/uL (0.00-0.02); Immature Granulocytes % (auto) 3.4 %; Lymphocytes # (auto) 0.75 K/uL (1.2-3.4); Lymphocytes % (auto) 4.8 %; Macrocytosis Present; Monocytes # (auto) 0.23 K/uL (0.24-0.82); Monocytes % (auto) 1.5 %; Neutrophils # (auto) 14.22 K/uL (1.4-6.5); Neutrophils % (auto) 90.1 %; Polychromasia 2+
[2022-03-06] MEDS ORDERED: SODIUM CHLORIDE 0.9% 250 ML IV PRN (18:01)
[2022-03-06] MEDS: RIVAROXABAN 20 MG TAB PO SCH (18:41)
[2022-03-06] MEDS: SIMVASTATIN 40 MG TAB PO SCH (20:56)
[2022-03-06] MEDS: MIRTAZAPINE TAB 15 MG TAB PO SCH (22:34)
[2022-03-07] MEDS ORDERED: LORazepam 0.5 MG in SYRINGE 0.25 ML IV ONE (05:00)
[2022-03-07] MEDS: MELATONIN 3 MG TAB PO PRN (05:10)
[2022-03-07] MEDS: FOLIC ACID 1 MG TAB PO SCH (09:29)
[2022-03-07] MEDS: predniSONE 20 MG TAB PO SCH (09:29)
[2022-03-07] MEDS: ESCITALOPRAM OXALATE 20 MG TAB PO SCH (09:29)
[2022-03-07] MEDS: POLYETHYLENE (MIRALAX) 17 GM PACK PO SCH (09:31)
[2022-03-07] MEDS: PANTOprazole 40 MG TAB PO SCH (09:32)
[2022-03-07] MEDS: CYANOCOBALAMIN 1000 MCG/ML VIAL IM SCH (09:32)
[2022-03-07] MEDS ORDERED: LORazepam 1 MG TAB PO STA (10:37)
--- NOTE | 2022-03-07 10:40 | Hospitalist Progress Note ---
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 on 03/08 LDH- has been elevated since January and again elevated here. Haptoglobin low from previous admission Received PRBC transfusion x 2 units on admission, hemoglobin up to 8.0, then back down to 7.7 gave 2 more units PRBCs which is finishing up this AM 03/07 Labs pending for after PRBC transfusion today Appreciate Hematology consult-checked CT C/A/P to assess for occult malignancy-negative except for thyroid nodule which is likely benign as per radiology report LDH up slightly-pending today Total bilirubin trending downward Follow CBC, LDH, LFTs bid until hgb stable > 8.0 as per Heme -Haptoglobin pending from admission -iron studies normal in January -Check genomic studies for PNH, myeloproliferative disorder-pending - Transfuse as needed for hgb > 7 -started folic acid 1 mg daily -changed to PPI for GI protection due to high dose steroids starting -started prednisone 1mg/kg po daily (90mg daily) on admission and if not improving, may need IVIG -ok to continue Xarelto for recent PEs/DVT (2) Thrombocytosis: Plan: Likely reactive to anemia-in the 900s check myeloprolif panel-pending Follow CBC on Xarelto (3) Generalized anxiety disorder: Plan: Remains with self-reported severe symptoms without suicidal ideations - endorses multiple triggering events that occurred prior to her admission in January-her onset of severe anxiety and depression was fairly acute as per patient and - Psych evaluation completed last admission with taper of Celexa and addition Lexapro-recommended increasing Lexapro to 20mg daily -consult Psych appreciated continue Lexapro, lorazepam prn (Xanax dcd by her outpt Psych) f/u with Psych as outpt -check brain MRI this admission when patient agreeable-too anxious right now and refusing to have test done at this time of note, did have normal brain MRI in 09/2021 performed for papilledema noted by her [employer] Senior 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 [employer] (4) Major depression: Plan: As above (5) Elevated bilirubin: Plan: 2/2 hemolysis-improving follow LFTs checked CT A/P-no issues on liver on imaging (6) Insomnia: Plan: Continue Remeron, lorazepam (7) GERD (gastroesophageal reflux disease): Plan: switched pepcid from home to PPI due to being on high dose steroids (8) Pulmonary emboli: Plan: Bilateral PE lobar and segmental 01/31 - Continue Xarelto 20mg PO daily- takes at 1900 - Hold if bleeding becomes evident, hemodynamically unstable, or other pathology revealed (9) Hyperlipidemia: Plan: Continue Simvastatin 40mg nightly Plan Dispo-continued stay Admission and Anticipated Discharge Date Admission Date: March 04, 2022 Subjective Pt crying because she didn't sleep at all through the night due to PRBC transfusion and repeatedly states she just wants to go home, she wants her to be here, etc. Gave reassurance to her and will give another dose of lorazepam which seems to help her with anxiety and sleep. She really does not want to do the brain MRI today that we had discussed doing last night. Just wants to try to get jules esleep. Denies pain, denies SOB. Review of Systems Review of Systems: All systems reviewed & are unremarkable except as noted in HPI & below Physical Exam Constitutional: WD/WN, vitals as above Eyes: PERRL, conjunctivae normal, anicteric sclerae (with chronic right ptosis) Neck: trachea midline, no thyromegaly Respiratory: normal respiratory effort, lungs clear to auscultation Cardiovascular: RRR, no murmur, no edema Gastrointestinal (Abdomen): normal bowel sounds, soft, nontender, no hepatosplenomegaly Musculoskeletal: Extremities: extremities normal to inspection; no cyanosis and no clubbing Skin: no rashes, warm and dry Neurologic: moves all extremities and awake; no focal motor deficits Psychiatric: Orientation: alert, oriented x 3 and cooperative Affect: + depressed affect, + anxious affect and + tearful affect Lymphatic: no lymphedema Results & Data Results & Data ([facility]) Vital Signs (Past 12 Hours) Vital Signs Temp Pulse Pulse Resp BP BP Pulse Ox 03/07/22 08:36 37.1 C 86 18 117/64 95 03/07/22 09:00 36.9 C 76 18 121/72 96 03/07/22 07:50 36.8 C 87 18 121/77 97 03/07/22 07:50 36.8 C 87 18 121/77 97 03/07/22 06:51 36.9 C 69 18 120/70 96 03/07/22 06:20 36.9 C 76 18 109/71 94 03/07/22 05:50 36.3 C L 76 16 116/70 91 03/07/22 05:35 36.8 C 76 18 105/68 94 03/07/22 05:16 36.8 C 76 18 120/69 98 03/06/22 23:29 37.1 C 82 18 117/66 94 O2 Del Method 03/07/22 08:36 03/07/22 09:00 03/07/22 07:50 03/07/22 07:50 Room Air 03/07/22 06:51 03/07/22 06:20 03/07/22 05:50 03/07/22 05:35 03/07/22 05:16 03/06/22 23:29 Room Air Laboratory Results labs pending PG Care Time/CCT Total # of Minutes Spent Total Time Spent with Patient: Total time spent is greater than 50% in coordination of care (as documented) at patient's floor/unit and/or counseling patient: Coding Level of Care Code 05709 Subseq Hosp Care Lvl 3 Diagnoses Autoimmune hemolytic anemia D59.10 Thrombocytosis D75.839 Generalized anxiety disorder F41.1 Major depression F32.9 Elevated bilirubin R17 Insomnia G47.00 GERD (gastroesophageal reflux disease) K21.9 Pulmonary emboli I26.99 Acute cor pulmonale presence: unspecified Chronicity: acute Pulmonary embolism type: unspecified Hyperlipidemia E78.5 (1) Pulmonary emboli Acute cor pulmonale presence: unspecified Chronicity: acute Pulmonary embolism type: unspecified Qualified Code(s): I26.99 - Other pulmonary embolism without acute cor pulmonale
[2022-03-07 12:52] LABS: Hematocrit (blood only) 30.3 % (34.1-44.9); Hemoglobin 9.4 g/dl (12.0-16.0); Mean Corpuscular Hemoglobin 32.2 pg (25.0-34.0); Mean Corpuscular Volume 103.8 fL (80.0-100.0); Mean Platelet Volume 9.1 fL (9.4-12.3); Nucleated RBC # (auto) 0.02 K/uL (0-0); Nucleated RBC % (auto) 0.2 %; Platelet Count 730 K/uL (130-400); RDW Coefficient of Variation 24.9 % (11.5-14.5); RDW Standard Deviation 85.8 fL (36.4-46.3); Red Blood Count 2.92 M/uL (3.93-5.22); White Blood Count 11.61 K/ul (4.8-10.8)
[2022-03-07 12:58] LABS: Albumin Level 3.6 gm/dl (3.4-5.0); BUN Creatinine Ratio 22.3 (10-20); Bilirubin Direct 0.3 mg/dl (0-0.2); Bilirubin,Total 2.1 mg/dl (0.2-1.0); Calcium 8.5 mg/dl (8.5-10.1); Creatinine Clr Calc Pharmacy 46.7 ml/min; Est GFR (African American) 56.4 ml/min; Est GFR (Non-African American) 48.7 ml/min; Potassium 4.2 mmol/L (3.5-5.1)
[2022-03-07 12:59] LABS: Anisocytosis Present; Basophils # (auto) 0.03 K/uL (0-0.2); Basophils % (auto) 0.3 %; Eosinophils # (auto) 0.03 K/uL (0-0.50); Eosinophils % (auto) 0.3 %; Immature Granulocytes # (auto) 0.21 K/uL (0.00-0.02); Immature Granulocytes % (auto) 1.8 %; Lymphocytes # (auto) 1.02 K/uL (1.2-3.4); Lymphocytes % (auto) 8.8 %; Monocytes # (auto) 0.42 K/uL (0.24-0.82); Monocytes % (auto) 3.6 %; Neutrophils % (auto) 85.2 %; Polychromasia 2+
[2022-03-07] MEDS: DOCUSATE SODIUM/SENNA 50/8.6MG TAB PO SCH (13:56)
[2022-03-07] MEDS: RIVAROXABAN 20 MG TAB PO SCH (18:20)
[2022-03-07 20:07] LABS: Hematocrit (blood only) 29.7 % (34.1-44.9); Hemoglobin 9.2 g/dl (12.0-16.0); Mean Corpuscular Hemoglobin 32.4 pg (25.0-34.0); Mean Corpuscular Volume 104.6 fL (80.0-100.0); Mean Platelet Volume 9.1 fL (9.4-12.3); Platelet Count 746 K/uL (130-400); RDW Coefficient of Variation 24.4 % (11.5-14.5); RDW Standard Deviation 89.1 fL (36.4-46.3); Red Blood Count 2.84 M/uL (3.93-5.22); White Blood Count 11.36 K/ul (4.8-10.8)
[2022-03-07 20:29] LABS: Albumin Level 3.7 gm/dl (3.4-5.0); Bilirubin Direct 0.4 mg/dl (0-0.2); Bilirubin,Total 1.8 mg/dl (0.2-1.0); Total Protein 6.3 gm/dl (6.0-8.3)
[2022-03-07] MEDS: SIMVASTATIN 40 MG TAB PO SCH (21:23)
[2022-03-07] MEDS: LORazepam 1 MG TAB PO PRN (21:23)
[2022-03-07] MEDS: MIRTAZAPINE TAB 15 MG TAB PO SCH (21:57)
[2022-03-08] MEDS: MELATONIN 3 MG TAB PO PRN (01:32)
[2022-03-08 07:17] LABS: Basophils # (auto) 0.01 K/uL (0-0.2); Basophils % (auto) 0.1 %; Eosinophils # (auto) 0.01 K/uL (0-0.50); Eosinophils % (auto) 0.1 %; Hematocrit (blood only) 31.2 % (34.1-44.9); Hemoglobin 9.7 g/dl (12.0-16.0); Immature Granulocytes # (auto) 0.15 K/uL (0.00-0.02); Immature Granulocytes % (auto) 1.3 %; Lymphocytes # (auto) 1.58 K/uL (1.2-3.4); Lymphocytes % (auto) 13.6 %; Mean Corpuscular Hgb Conc 31.1 g/dL (32.0-36.0); Mean Platelet Volume 9.1 fL (9.4-12.3); Monocytes # (auto) 0.56 K/uL (0.24-0.82); Monocytes % (auto) 4.8 %; Neutrophils # (auto) 9.35 K/uL (1.4-6.5); Neutrophils % (auto) 80.1 %; Platelet Count 776 K/uL (130-400); RDW Coefficient of Variation 23.8 % (11.5-14.5); RDW Standard Deviation 86.5 fL (36.4-46.3); Red Blood Count 3.03 M/uL (3.93-5.22); White Blood Count 11.66 K/ul (4.8-10.8)
[2022-03-08 07:43] LABS: Albumin Globulin Ratio 1.6 (0.9-2); Albumin Level 3.7 gm/dl (3.4-5.0); Bilirubin,Total 1.8 mg/dl (0.2-1.0); Calcium 8.8 mg/dl (8.5-10.1); Creatinine Clr Calc Pharmacy 54.4 ml/min; Est GFR (Non-African American) 58.7 ml/min; Globulin 2.3 gm/dl (2.5-4.0)
[2022-03-08 07:45] LABS: Anisocytosis Present; Polychromasia 2+; Tear Drop Cells 1+
[2022-03-08] MEDS: ESCITALOPRAM OXALATE 20 MG TAB PO SCH (09:05)
[2022-03-08] MEDS: predniSONE 20 MG TAB PO SCH (09:05)
[2022-03-08] MEDS: FOLIC ACID 1 MG TAB PO SCH (09:05)
[2022-03-08] MEDS: PANTOprazole 40 MG TAB PO SCH (09:05)
[2022-03-08] MEDS: POLYETHYLENE (MIRALAX) 17 GM PACK PO SCH (09:05)
[2022-03-08] MEDS: DOCUSATE SODIUM/SENNA 50/8.6MG TAB PO SCH (09:05)
[2022-03-08] MEDS: LORazepam 1 MG TAB PO PRN (10:31)
--- NOTE | 2022-03-08 13:51 | Discharge Summary ---
Date of Service March 08, 2022 Admission HPI Per Admitting Provider 71 YOF with medical history of: Anxiety/Depression, PE (Xarelto 01/31), HLD, GERD, Insomnia, B12 deficiency, elevated bilirubin level. Patient comes to the [facility] today at direction from her PCP on routine blood draw. The patient was noted to have decrease HGB to 5.4 from 8.9 previously in January. The patient states that she has been "awful because she is so depressed and anxious". She does report that over the past week she has been more tired, cold, and feeling like her heart rate was going fast when she got up to do anything. She endorses some dizziness this morning upon standing. She was previously evaluated in the [facility] 02/06 for concerns of rectal bleeding and dark urine- this was felt consistent with anal fissure on examination and hemorrhoids. On today's visit she is Hemoccult negative, she denies any changes to her bowel movements, abdominal pain or vomiting. She reports some blood on her toilet paper following urination this morning. She is hemodynamically stable. Following her previous admission in January- she was treated with B12 and was discharged on oral cyanocobalamin- however says she had only 1 pill when she left and they never took anymore. Her HGB is noted at 5.4, Platelet count 1041, WBC 11.8 MCV 125, bilirubin at 3.1 which is up from her baseline 1.9. Will iron panel, b12, folate, LDH, ferritin and obtain peripheral smear to rule out other causes than the known B12 deficiency that she is known to have. She is typed and crossed for 2 units of PRBC to transfuse. However, she has antibody and is requiring blood transfer from [place]. Previous peripheral smear 01/16/22- The peripheral smear is remarkable for a macrocytic anemia and mild thrombocytosis. Potential etiologies of a macrocytic anemia include vitamin deficiencies (folate/B12), drugs, toxins and my elodysplastic syndrome. COVID test: NEGATIVE Principal Diagnosis Autoimmune hemolytic anemia Major depressive disorder with anxiety Thrombocytosis B12 deficiency Discharge Exam Constitutional WD/WN, vitals as above Eyes PERRL, conjunctivae normal, anicteric sclerae (with chronic right ptosis) ENMT external ear and nose normal, oropharynx normal Neck trachea midline, no thyromegaly Respiratory normal respiratory effort, lungs clear to auscultation Cardiovascular RRR, no murmur, no edema Chest (Breasts) Chest: normal inspection of chest Gastrointestinal (Abdomen) normal bowel sounds, soft, nontender, no hepatosplenomegaly Musculoskeletal Extremities: extremities normal to inspection; no cyanosis and no clubbing Skin no rashes, warm and dry Neurologic moves all extremities and awake; no focal motor deficits Psychiatric Orientation: alert, oriented x 3 and cooperative Affect: + depressed affect, + anxious affect and + tearful affect Lymphatic no lymphedema Discharge Data Allergies Allergy/AdvReac Type Severity Reaction Status Date / Time No Known Allergies Allergy Unverified 02/06/22 17:22 Consultations 03/04/22 14:37 ED Decision to Admit Stat 03/04/22 18:13 Consult Hematology Routine 03/05/22 17:29 Consult Psychiatry Routine Ordered Studies 03/05/22 20:30 CT Abd and Pelvis [CT abd pelvis IV con only] Routine CT chest diagnostic w con Routine Hospital Course (1) Autoimmune hemolytic anemia: Anemia acute on chronic- macrocytic from reticulocytosis not associated with blood loss With +YELITZA B12 borderline low-replace with B12 1000 mcg IM daily x3 days and then convert to p.o. 1000 mcg daily on 03/08 LDH- has been elevated since January and again elevated here. Haptoglobin low from previous admission and extremely low now at undetectable levels Received PRBC transfusion x 2 units on admission, hemoglobin up to 8.0, then back down to 7.7 gave 2 more units PRBCs and hemoglobin came up to 9.7 and remained stable for 24 hours Was started on high-dose prednisone at 1 mg/KG equals 90 mg p.o. daily LDH trending downward, total bilirubin trending downward, and hemoglobin remaining stable Appreciate Hematology consult-checked CT C/A/P to assess for occult malignancy- negative except for thyroid nodule which is likely benign as per radiology report Unclear etiology but myeloproliferative disorder panel still pending -iron studies normal in January -Check genomic studies for PNH-negative - myeloproliferative disorder panel-pending at the time of discharge -started folic acid 1 mg daily -Added on Protonix for GI protection due to high dose steroids -Continue prednisone 1mg/kg po daily (90mg daily) until seen by oncology as an outpatient but will likely stay on this for at least 2 weeks and then taper down -ok to continue Xarelto for recent PEs/DVT Stable for discharged home as per my discussion with oncology -Check CBC, CMP, LDH, and reticulocyte count in 2 days on Saturday 03/10 at cancer center and follow-up with hematology next week. (2) Thrombocytosis: Likely reactive to anemia-in the 900s on admission and now improving down to the 700s check myeloprolif panel-pending Follow CBC as an outpatient on Xarelto (3) Generalized anxiety disorder: Remains with self-reported severe symptoms without suicidal ideations - endorses multiple triggering events that occurred prior to her admission in January-her onset of severe anxiety and depression was fairly acute as per patient and - Psych evaluation completed last admission with taper of Celexa and addition Lexapro-recommended increasing Lexapro to 20mg daily -consult Psych appreciated continue Lexapro, lorazepam prn (Xanax dcd by her outpt Psych) f/u with Psych as outpt -Recommended checking brain MRI this admission when patient agreeable-remains too anxious right now and refusing to have test done at this time-can be done as an outpatient if still deemed necessary by oncology or psychiatry of note, did have normal brain MRI in 09/2021 performed for papilledema 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 (4) Major depression: As above (5) Elevated bilirubin: 2/2 hemolysis-improving follow LFTs as an outpatient checked CT A/P-no issues on liver on imaging (6) Insomnia: Continue Remeron, lorazepam (7) GERD (gastroesophageal reflux disease): Continue pepcid from home and add on PPI due to being on high dose steroids (8) Pulmonary emboli: Bilateral PE lobar and segmental 01/31 - Continue Xarelto 20mg PO daily- takes at 1900 - Hold if bleeding becomes evident, hemodynamically unstable, or other pathology revealed (9) Hyperlipidemia: Continue Simvastatin 40mg nightly Plan Dispo-stable for discharge to home All care discussed with the patient, her , her daughter, and her sister at the bedside. Care also discussed with the operations forester at the time of discharge Total Time Total Time Spent Total Time Spent (In Minutes): 40 minutes Discharge Plan Discharge Items Patient Disposition: Home - Self-Care Reason For Visit: ANEMIA, THROMBOCYTOSIS, PULMONARY EMBOLISM (01/31) Discharge Diagnosis: Autoimmune hemolytic anemia Thrombocytosis Major depression disorder with anxiety Condition on Discharge: Fair Activity: As commented below Bathing: No limitations Exercise/Sports: As tolerated Driving/Machine Use: No driving Weightbearing: Full weightbearing Non-emergency contact: Primary Care Provider and Oncologist Call non-emergency contact if: you have any medication questions and your symptoms worsen Follow-up/Referrals: Thelma England MD [Primary Care Provider] - (Please follow-up within 1 to 2 weeks) Frieda Francisco MD [Physician] - (Please follow-up within 1 week.) Diet: Regular Ambulatory Orders: Complete Blood Count with Diff (Routine) Timeframe: 2 Days Location: Determined by Patient Ordered By: Chiquis Lancaster Comprehensive Metabolic Panel (Routine) Timeframe: 2 Days Location: Determined by Patient Ordered By: Chiquis Lancaster Lactate Dehydrogenase (Routine) Timeframe: 2 Days Location: Determined by Patient Ordered By: Chiquis Lancaster Reticulocyte Count (Routine) Timeframe: 2 Days Location: Determined by Patient Ordered By: Chiquis Lancaster Addtl Attending Provider Instructions: You were admitted due to severe anemia which is due to autoimmune hemolytic anemia. It is not entirely clear what is causing this to happen, but some of the results of your tests were still pending at the time of discharge. We are treating you with high-dose steroids with prednisone 90 mg a day. You should take this every day until the operations forester/oncologist, Dr. Francisco, tells you to stop. You were given blood transfusions and your blood counts were improving. You were also started on vitamin B12 replacement for low B12 levels as well as folic acid 1 mg daily. Prescriptions for these were called into your pharmacy. Please go get labs done at the [facility] on Thursday-these are ordered for you. The operations forester will contact you with your results until he went to follow-up with her in her office. You should take an antacid called pantoprazole to help protect your stomach from ulcers while on the high-dose prednisone. Please follow-up with your psychiatrist as we discussed for your depression and anxiety. Pending Studies at Discharge: Yes Studies:: Myeloproliferative disorder panel Stand-Alone Forms: My Sosh, Smoking Cessation Medications and DC Order Prescriptions: New pantoprazole 40 mg Tablet,Delayed Release (Dr/Ec) 40 mg PO QAM Qty: 30 0RF prednisone 20 mg Tablet 90 mg PO QAM Qty: 135 0RF folic acid 1 mg Tablet 1 mg PO QAM Qty: 30 0RF cyanocobalamin (vitamin B-12) 1,000 mcg capsule 1,000 mcg PO DAILY Qty: 30 0RF Continued simvastatin 40 mg tablet 40 mg PO HS famotidine 20 mg tablet 20 mg PO BID Xarelto 20 mg tablet 20 mg PO QPM mirtazapine 15 mg tablet 15 mg PO HS lorazepam 1 mg tablet 0.5 - 1 mg PO BID PRN (Reason: severe anxiety) escitalopram oxalate 20 mg tablet 20 mg PO QAM trazodone 50 mg tablet 25 mg PO HS PRN (Reason: Sleep) Discharge Orders: Discharge Order (Routine); Ordered 03/08/22 Ordered By: Chiquis Lancaster Admission Data Admit Date/Time: 03/04/22 15:40 Attending Provider: Chiquis Lancaster Admit Provider: Fabián Patel Primary Care Provider: Thelma England Other Providers: Fabián Patel ; Frieda Francisco ; Janice Sandoval ; Mary Ann Cherry ; Cristina Burns Coding Level of Care Code D/C DAY MANAGEMENT >30 MINS Diagnoses Autoimmune hemolytic anemia D59.10 Thrombocytosis D75.839 Generalized anxiety disorder F41.1 Major depression F32.9 Elevated bilirubin R17 Insomnia G47.00 GERD (gastroesophageal reflux disease) K21.9 Pulmonary emboli I26.99 Acute cor pulmonale presence: unspecified Chronicity: acute Pulmonary embolism type: unspecified Hyperlipidemia E78.5
== END 2022-03-08 16:11 | disposition home or self-care (01) | DRG 808 ==
LOC: ED 12:02 → EDINP 15:40 → SUATTDRO 15:40 → EDINP 17:12 → 3W 03-06 00:52

== ENCOUNTER 2022-04-16 10:57 | Inpatient (IN) ==
--- NOTE | 2022-04-16 11:54 | Emergency Department Note ---
Impression & Plan Hypoxia, Weakness, Anemia, COVID-19 ED Provider Note NAME: ARTHUR BATISTA AGE: 71 SEX: F : 1950 ARRIVES VIA: Walk-In INFORMANT: Patient ED PROVIDER(S): Arturo Looney DO CHIEF COMPLAINT: shortness of breath and weakness HPI: Patient is a 71-year-old female who presents to the ER for shortness of breath. She notes that she has been feeling weak and rundown since yesterday. She had her blood work checked several days ago and it was low at 5. She r eceived 2 units PRBCs yesterday secondary to her autoimmune hemolytic anemia. Since being home when she checked her pulse ox it was in the 70s. She was diagnosed with a PE back in January and wore 2 L nasal cannula at that time for a month. She has since then been off of oxygen. She notes that pulse ox was 70s at home and she was feeling a little lightheaded and consequently came in. No chest pain. Has been taking her Xarelto and has not missed any doses. No belly pain, nausea, vomiting, or diarrhea. No dysuria, urgency, or frequency. No other exacerbating or remitting factors. ROS: See above HPI for pertinent positives & negatives. A total of 10 systems reviewed and were otherwise negative. PAST MEDICAL HISTORY:See Below PAST SURGICAL HISTORY:See Below FAMILY HISTORY:See Below SOCIAL HISTORY:See Below HOME MEDICATIONS:See Below ALLERGIES:See Below VITALS:See Below PHYSICAL EXAMINATION: GENERAL: Sitting up in bed, alert, well appearing, well nourished, no distress, non-toxic EYE EXAM: normal conjunctiva. OROPHARYNX: no exudate, no erythema, lips, buccal mucosa, and tongue normal and mucous membranes are moist NECK: supple, no nuchal rigidity, no adenopathy, non-tender LUNGS: Clear to auscultation. Normal chest wall mechanics HEART: no murmurs, S1 normal and S2 normal ABDOMEN: abdomen soft, non-tender, normo-active bowel sounds, no masses, no rebound or guarding. UPPER EXTREMITIES: upper extremities are grossly normal. LOWER EXTREMITIES: No pitting edema. Calves are equal bilateral NEURO EXAM: Normal sensorium, cranial nerves II-XII grossly intact, normal speech, no gross weakness of arms, no gross weakness of legs. MEDICAL DECISION MAKING: Patient is a 71-year-old female who presents ER for above-stated complaint. She was found to be hypoxic on room air at 80%. She is not wearing oxygen for over 2 months. She has been taking her Xarelto. Labs show no significant leukocytosis. Improved anemia with a hemoglobin 8.3. Platelets were elevated. INR unremarkable. BMP was unremarkable. T bili slightly up at 1.7. LFTs and troponin were negative. Lipase was normal. Pro-Julien was normal. Patient was COVID-positive however she was positive for a month earlier. Chest x-ray was nonsignificant change from previous. EKG was nondiagnostic. She was updated bedside remained on 2 L and discussed with Kenneth Lala. She was given steroids and admitted for further work-up. Triage Nursing notes reviewed. Limited review of prior medical records performed Vital Signs: reviewed and remarkable for tachy, hypoxic Differential diagnosis: Differential diagnoses includes but is not limited to pneumonia, bronchitis, COPD/Asthma exacerbation, pneumothorax, pulmonary embolism, congestive heart failure, acute coronary syndrome ER treatment provided: See below Diagnostics interpreted by me: ECG: Sinus rhythm rate 96 Normal axis No PVCs QTC 444 T wave inversion lead III Cardiac Monitoring: An order was placed for continuous cardiac monitoring. The monitor shows a rate of 90 with sinus rhythm. Laboratory studies: As stated above and show below. Imaging studies: Portable AP upright 1 view of the chest was unremarkable Consultation(s): Discussed with Dr. Kenneth Lala for further evaluation Procedures: none Critical Care: I have personally spent 32 minutes of critical care time in the direct management of this patient. This includes bedside care, interpretation of diagnostic studies, and testing, discussion with consultants, patient, and family members, and other required patient management activities. This 32 minutes is in excess of all separately billable procedures. Past Med/Surg History Medical History Autoimmune hemolytic anemia Chronic low back pain Congenital ptosis of right eyelid GERD (gastroesophageal reflux disease) Hx of colonic polyps Hyperlipidemia Surgical History H/O cataract extraction b/l Family History Father Myocardial infarction Mother Pancreatitis Denies family history of Deep vein thrombosis Pulmonary embolism Social History Smoking Status: Never smoker Second Hand Exposure: No; Hx Alcohol Use: No Hx Substance Use: No Preferred Language: Mongolian Communication Ability: Effective Shank Sorter Required: No Beliefs That Will Affect Care: None marital status: Current Living Situation: Spouse Current Living Situation Comment: in [place] current occupational status: retired How many Children do You have: 2 How many Children do You have Comment: 1 son, 1 daughter Feels Safe at Home: Yes Assistive Devices: None Allergies Allergies Allergy/AdvReac Type Severity Reaction Status Date / Time No Known Allergies Allergy Verified 04/15/22 10:36 Home Meds Home Medications Medication Instructions Recorded Confirmed simvastatin 40 mg tablet 40 mg PO HS 01/15/22 04/16/22 rivaroxaban 20 mg tablet (Xarelto) 20 mg PO Q24H 02/06/22 04/16/22 lorazepam 1 mg tablet 0.5 - 1 mg PO BID PRN severe 03/04/22 04/16/22 anxiety mirtazapine 15 mg tablet 15 mg PO HS 03/04/22 04/16/22 sertraline 100 mg tablet (Zoloft) 200 mg PO DAILY 04/01/22 04/16/22 olanzapine 7.5 mg tablet (Zyprexa) 7.5 mg PO HS 04/15/22 04/16/22 Previous Rx's Medication Instructions Recorded cyanocobalamin (vitamin B-12) 1,000 mcg PO DAILY #30 caps 03/08/22 1,000 mcg capsule folic acid 1 mg tablet 1 mg PO QAM #30 tabs 03/08/22 pantoprazole 40 mg tablet,delayed 40 mg PO QAM #30 tabs 03/08/22 release Results & Data (ED) Vital Signs Vital Signs - 24 hr 04/16/22 11:02 04/16/22 11:45 04/16/22 11:52 Temperature 36.2 C L Temperature Source Temporal Artery Scan Pulse Rate 101 H Respiratory Rate 18 Respiratory Effort / Characteristics Non-Labored Spontaneous Respiratory Depth Normal Respiratory Pattern Regular Blood Pressure 120/70 Blood Pressure Mean 86 Blood Pressure Position Sitting Pulse Oximetry 92 80 L Oxygen Delivery Method Nasal Cannula Nasal Cannula Room Air Oxygen Flow Rate 2.5 3 Sepsis Recent Fever Within 48 Hours No Sepsis New/Unexplained Change in Mental Status No Sepsis Action Taken by Nursing No Action Required Oxygen Flow Rate - Titration 3 Pulse Oximetry Post Tiitration 93 Laboratory Data Result diagrams: 04/16/22 11:42 04/16/22 11:42 Lab Results 04/16/22 04/16/22 04/16/22 Range/Units 11:42 11:42 11:42 WBC 9.95 (4.8-10.8) K/ul RBC 2.73 L (3.93-5.22) M/uL Hgb 8.3 L (12.0-16.0) g/dl Hct 26.7 L (34.1-44.9) % MCV 97.8 D (80.0-100.0) fL MCH 30.4 (25.0-34.0) pg MCHC 31.1 L (32.0-36.0) g/dL RDW Std Deviation 65.9 H (36.4-46.3) fL RDW Coeff of Warren 19.6 H (11.5-14.5) % Plt Count 689 H (130-400) K/uL MPV 9.2 L (9.4-12.3) fL Immature Gran % (Auto) 4.6 % Neut % (Auto) 78.9 % Lymph % (Auto) 7.4 % [place] % (Auto) 7.0 % Eos % (Auto) 1.5 % Baso % (Auto) 0.6 % Neut # (Auto) 7.84 H (1.4-6.5) K/uL Lymph # (Auto) 0.74 L (1.2-3.4) K/uL [place] # (Auto) 0.70 (0.24-0.82) K/uL Eos # (Auto) 0.15 (0-0.50) K/uL Baso # (Auto) 0.06 (0-0.2) K/uL Immature Gran # (Auto) 0.46 H (0.00-0.02) K/uL PT (9.0-12.0) Seconds INR (0.9-1.1) APTT (21.0-31.0) Seconds PTT Ratio Sodium 135 L (136-145) mmol/L Potassium 3.7 (3.5-5.1) mmol/L Chloride 103 (98-107) mmol/L Carbon Dioxide 25 (21-32) mmol/L Anion Gap 7 (3-11) BUN 11 (6-23) mg/dl Creatinine 0.86 (0.6-1.2) mg/dl Est Cr Clr Drug Dosing Not Reportable Est GFR ( Amer) 77.7 ml/min Est GFR (Non-Af Amer) 67.0 ml/min BUN/Creatinine Ratio 12.8 (10-20) Glucose 134 H (70-99(Fasting)) mg/dl Calcium 8.6 (8.5-10.1) mg/dl Total Bilirubin 1.7 H (0.2-1.0) mg/dl AST 20 (13-39) U/L ALT 12 (7-52) U/L Alkaline Phosphatase 49 (34-104) U/L Troponin I High Sens 5.7 (0-14) pg/ml B-Natriuretic Peptide (0-100) pg/ml Total Protein 5.8 L (6.0-8.3) gm/dl Albumin 3.6 (3.4-5.0) gm/dl Globulin 2.2 L (2.5-4.0) gm/dl Albumin/Globulin Ratio 1.6 (0.9-2) Lipase 13 (11-82) U/L Procalcitonin 0.17 (0-0.5) ng/ml SARS-CoV-2, RNA, NAAT (NEGATIVE) 04/16/22 04/16/22 04/16/22 Range/Units 11:42 12:06 14:21 WBC (4.8-10.8) K/ul RBC (3.93-5.22) M/uL Hgb (12.0-16.0) g/dl Hct (34.1-44.9) % MCV (80.0-100.0) fL MCH (25.0-34.0) pg MCHC (32.0-36.0) g/dL RDW Std Deviation (36.4-46.3) fL RDW Coeff of Warren (11.5-14.5) % Plt Count (130-400) K/uL MPV (9.4-12.3) fL Immature Gran % (Auto) % Neut % (Auto) % Lymph % (Auto) % [place] % (Auto) % Eos % (Auto) % Baso % (Auto) % Neut # (Auto) (1.4-6.5) K/uL Lymph # (Auto) (1.2-3.4) K/uL [place] # (Auto) (0.24-0.82) K/uL Eos # (Auto) (0-0.50) K/uL Baso # (Auto) (0-0.2) K/uL Immature Gran # (Auto) (0.00-0.02) K/uL PT 11.3 (9.0-12.0) Seconds INR 1.1 (0.9-1.1) APTT 29.1 (21.0-31.0) Seconds PTT Ratio 1.1 Sodium (136-145) mmol/L Potassium (3.5-5.1) mmol/L Chloride (98-107) mmol/L Carbon Dioxide (21-32) mmol/L Anion Gap (3-11) BUN (6-23) mg/dl Creatinine (0.6-1.2) mg/dl Est Cr Clr Drug Dosing Est GFR ( Amer) ml/min Est GFR (Non-Af Amer) ml/min BUN/Creatinine Ratio (10-20) Glucose (70-99(Fasting)) mg/dl Calcium (8.5-10.1) mg/dl Total Bilirubin (0.2-1.0) mg/dl AST (13-39) U/L ALT (7-52) U/L Alkaline Phosphatase (34-104) U/L Troponin I High Sens (0-14) pg/ml B-Natriuretic Peptide 191 H (0-100) pg/ml Total Protein (6.0-8.3) gm/dl Albumin (3.4-5.0) gm/dl Globulin (2.5-4.0) gm/dl Albumin/Globulin Ratio (0.9-2) Lipase (11-82) U/L Procalcitonin (0-0.5) ng/ml SARS-CoV-2, RNA, NAAT POSITIVE A* (NEGATIVE) Administered Medications Discontinued Medications Dexamethasone 6 mg/ Syringe 1.5 mls @ 1 mls/min IV ONE ONE Stop: 04/16/22 13:09 Last Admin: 04/16/22 15:20 Dose: 1 mls/min Documented By: MARGARITA Ioversol (Optiray 300 500ml) 110 ml IV ONCE ONE Stop: 04/16/22 15:49 Last Admin: 04/16/22 15:48 Dose: 110 ml Documented By: RHD Imaging Data Radiologist's Impression: Chest X-Ray 04/16/22 11:53 XR chest 1V portable HISTORY: Shortness of breath. Atypical Chest Pain COMPARISON: Chest 04/15/2022. FINDINGS: No pneumothorax. The cardiac silhouette is mildly enlarged. No pleural effusions. There is mild central pulmonary vascular congestion without overt edema. No new focal lung consolidations to suggest pneumonia. IMPRESSION: Cardiomegaly with mild central pulmonary vascular congestion without overt edema. ACT 112: Negative or not required by law. Electronically signed by: Ford Stovall M.D. 04/16/2022 1:44 PM Discharge Plan Visit Data Chief Complaint: Shortness of Breath/Dyspnea Stated Complaint: low oxygen, in 80s with oxygen on. ED Provider: Arturo Looney Discharge Problem: Hypoxia, Weakness, Anemia, COVID-19 Patient Disposition: Admitted As Inpatient Discharge Instructions Interventions: ED Discharge Assessment Last Done: 04/16/22 15:24
[2022-04-16 12:36] LABS: Alanine Aminotransferase 12 U/L (7-52); Albumin Globulin Ratio 1.6 (0.9-2); Albumin Level 3.6 gm/dl (3.4-5.0); Alkaline Phosphatase 49 U/L (34-104); Anion Gap 7 (3-11); Aspartate Aminotransferase 20 U/L (13-39); BUN Creatinine Ratio 12.8 (10-20); Bilirubin,Total 1.7 mg/dl (0.2-1.0); Blood Urea Nitrogen 11 mg/dl (6-23); Calcium 8.6 mg/dl (8.5-10.1); Carbon Dioxide 25 mmol/L (21-32); Chloride 103 mmol/L (98-107); Est GFR (African American) 77.7 ml/min; Globulin 2.2 gm/dl (2.5-4.0); Glucose 134 mg/dl (70-99(Fasting)); Lipase 13 U/L (11-82); Potassium 3.7 mmol/L (3.5-5.1); Sodium 135 mmol/L (136-145); Total Protein 5.8 gm/dl (6.0-8.3); Troponin I High Sensitivity 5.7 pg/ml (0-14)
[2022-04-16 13:06] LABS: Basophils # (auto) 0.06 K/uL (0-0.2); Basophils % (auto) 0.6 %; Eosinophils # (auto) 0.15 K/uL (0-0.50); Eosinophils % (auto) 1.5 %; Hematocrit (blood only) 26.7 % (34.1-44.9); Hemoglobin 8.3 g/dl (12.0-16.0); Immature Granulocytes # (auto) 0.46 K/uL (0.00-0.02); Immature Granulocytes % (auto) 4.6 %; Lymphocytes # (auto) 0.74 K/uL (1.2-3.4); Lymphocytes % (auto) 7.4 %; Mean Corpuscular Hemoglobin 30.4 pg (25.0-34.0); Mean Corpuscular Hgb Conc 31.1 g/dL (32.0-36.0); Mean Corpuscular Volume 97.8 fL (80.0-100.0); Mean Platelet Volume 9.2 fL (9.4-12.3); Neutrophils # (auto) 7.84 K/uL (1.4-6.5); Neutrophils % (auto) 78.9 %; Platelet Count 689 K/uL (130-400); RDW Coefficient of Variation 19.6 % (11.5-14.5); RDW Standard Deviation 65.9 fL (36.4-46.3); Red Blood Count 2.73 M/uL (3.93-5.22); White Blood Count 9.95 K/ul (4.8-10.8)
[2022-04-16] MEDS ORDERED: dexAMETHasone 6 MG in SYRINGE 0 ML IV ONE (13:08)
--- NOTE | 2022-04-16 13:47 | XRay Report ---
XR chest 1V portable HISTORY: Shortness of breath. Atypical Chest Pain COMPARISON: Chest 04/15/2022. FINDINGS: No pneumothorax. The cardiac silhouette is mildly enlarged. No pleural effusions. There is mild central pulmonary vascular congestion without overt edema. No new focal lung consolidations to s uggest pneumonia. IMPRESSION: Cardiomegaly with mild central pulmonary vascular congestion without overt edema. ACT 112: Negative or not required by law. Electronically signed by: Ford Stovall M.D. 04/16/2022 1:44 PM
--- NOTE | 2022-04-16 14:20 | History & Physical Report ---
Date of Service April 16, 2022 Assessment & Plan (1) Acute and chronic respiratory failure with hypoxia: Plan: Echocardiogram in January with no regional wall abnormalities, moderate pulmonary hypertension with RVSP 56 mmHg -I do not see a need to repeat this COVID-19 unlikely playing any considerable role as explained below Procalcitonin and white blood count are unremarkable for bacterial pneumonia Known pulmonary emboli and reports compliance with Xarelto - however given lack of alternative explanation for hypoxia and worsening autoimmune hemolytic anemia off of steroids will reassess her clot burden with CT chest for pulmonary emboli Notably her coags were normal while on Xarelto on last admission, pending current PTINR and PTT She may have some mild pulmonary edema from her recent iron and blood transfusions. Will reassess need for Lasix after CT chest and BNP. I suspect most likely this is related to coming off her prednisone and worsening autoimmune hemolytic anemia requiring 2 blood transfusions yesterday and worsening generalized weakness likely leading to worse respiratory efforts and general recovery with atelectasis. (2) COVID-19: Plan: Her test is positive but she also had a home test on March 20 therefore I do not think this is playing part in her current hypoxia. Unfortunately because she has no documented PCR test this will be day 1 of isolation. (3) Adjustment disorder with mixed anxiety and depressed mood: Plan: Continue her usual psychiatric medications with mirtazapine 50 mg p.o. at bedtime, Zyprexa 7.5 mg p.o. at bedtime, sertraline 200 mg p.o. daily (4) Pulmonary emboli: Plan: CT for PE as above to reassess for clot burden Xarelto 20mg PO daily @ 6pm (5) Autoimmune hemolytic anemia: Plan: Consult hematology for possible need to restart on high dose steroids Repeat CBC in a.m. with LDH, iron studies, B12, folate, reticulocyte Did not tolerate steroids and 4th dose 3rd Rituxan. Venofer 300mg daily (6) Thrombocytosis: Plan: Appears to have ongoing work-up for this with BCR/abl pending Consult hematology as above (7) Iron deficiency anemia: Plan: Diagnosed on bone marrow biopsy. Venofer 300mg IV daily for 2 days per hematology. Plan VTE Prophylaxis - Xarelto as above Diet - regular Disposition - admit to PCU, PT/OT evals Admission and Anticipated Discharge Date Admission Date: April 16, 2022 History of Present Illness Chief Complaint: Shortness of breath Primary Care Provider: Thelma England MD Velma Tao is a 71 year old female with recent diagnosis of autoimmune hemolytic anemia who presents to the ER with shortness of breath. Her at bedside provides the majority of the history. The patient is very anxious and intermittently says she does not want to stay but does not appear to understand any of her medical conditions to be able to make an informed decision at this time. Her does not want to take her home given her significant hypoxia with O2 sats 80% on room air and she has no other transport. She has had 2 recent significant admissions from January 15 to 2021 with bilateral pulmonary emboli and left lower extremity DVT. She was treated with Xarelto. On discharge she required 2.5 liters O2 via nasal cannula with activity but not at rest. She was then admitted from March 04 to 2021 due to generally feeling awful and anxious with a hemoglobin drop from 8.9-5.4. She was diagnosed with autoimmune hemolytic anemia treated with 4 units of blood and 90 mg of prednisone daily. Her reports she was not requiring oxygen on discharge. Since discharge she has had further 5 units of blood; most recently 2 units were given yesterday. She tapered off the prednisone with her last dose 1 week previous. She has been receiving Rituxan for thrombocytosis. It is very difficult to get a definitive history of symptoms from the patient as she just reports feeling awful all the time. reports on Thursday (3 days previously) her oxygen saturations suddenly dropped to the 70s on room air and she is continuously needed oxygen since then. [facility] and on Thursday had an iron transfusion. Her hemoglobin had dropped again to 6.2 g/dL at that time and the following day (yesterday) she received 2 units of blood. She reports no significant change in her symptoms despite the blood transfusions and her reports no change in her oxygen saturations. Therefore they called her primary care provider and Dr. Francisco who recommended coming to the emergency room. In the ER SARS-CoV-2 PCR positive. However reports they both tested positive on home test on March 20 and was mostly asymptomatic other than he had a sore throat at the time prompting the test. They did not have any official PCR test. The only other recent change is olanzapine was added to her psychiatric medications by Dr. Deluca on April 02 although they unclear the reason for this addition. This was uptitrated to 7.5 mg at bedtime 2 days ago. The patient reports no significant change in anxiety over the last week. In the ER her O2 sats were 80% on room air. She was referred to medicine for admission ongoing management of hypoxia, COVID. Allergies Allergy/AdvReac Type Severity Reaction Status Date / Time No Known Allergies Allergy Verified 04/15/22 10:36 Home Medications Medication Instructions Recorded Confirmed Type simvastatin 40 mg tablet 40 mg PO HS 01/15/22 04/16/22 History rivaroxaban 20 mg tablet (Xarelto) 20 mg PO Q24H 02/06/22 04/16/22 History lorazepam 1 mg tablet 0.5 - 1 mg PO BID PRN severe 03/04/22 04/16/22 History anxiety mirtazapine 15 mg tablet 15 mg PO HS 03/04/22 04/16/22 History cyanocobalamin (vitamin B-12) 1,000 mcg PO DAILY #30 caps 03/08/22 04/16/22 Rx 1,000 mcg capsule folic acid 1 mg tablet 1 mg PO QAM #30 tabs 03/08/22 04/16/22 Rx pantoprazole 40 mg tablet,delayed 40 mg PO QAM #30 tabs 03/08/22 04/16/22 Rx release sertraline 100 mg tablet (Zoloft) 200 mg PO DAILY 04/01/22 04/16/22 History olanzapine 7.5 mg tablet (Zyprexa) 7.5 mg PO HS 04/15/22 04/16/22 History Past Med/Surg History Medical History Autoimmune hemolytic anemia Chronic low back pain Congenital ptosis of right eyelid GERD (gastroesophageal reflux disease) Hx of colonic polyps Hyperlipidemia Surgical History H/O cataract extraction b/l Family History Father Myocardial infarction Mother Pancreatitis Denies family history of Deep vein thrombosis Pulmonary embolism Social History (Reviewed 04/02/22 @ 07:38 by ARI Russ Smoking Status: Never smoker Second Hand Exposure: No; Hx Alcohol Use: No Hx Substance Use: No Preferred Language: Lao Communication Ability: Effective Cradle Slide Maker Required: No Beliefs That Will Affect Care: None marital status: Current Living Situation: Spouse Current Living Situation Comment: in [place] current occupational status: retired How many Children do You have: 2 How many Children do You have Comment: 1 son, 1 daughter Other Information That Helps Us Care for You: No Feels Safe at Home: Yes Safety Concerns: Feels Safe At This Time Assistive Devices: None Review of Systems Review of Systems: All systems reviewed & are unremarkable except as noted in HPI & below Generalized weakness ongoing since at least the last admission. Physical Exam Constitutional: WD/WN, vitals as above Eyes: + anicteric sclerae; normal pupil size ENMT: external ear and nose normal, oropharynx normal Neck: trachea midline, no thyromegaly Respiratory: normal respiratory effort; no respiratory distress Auscultation: + crackles (bibasal); no diminished lung sounds, no rales, no rhonchi and no wheezes Cardiovascular: RRR, no murmur, no edema Gastrointestinal (Abdomen): normal bowel sounds, soft, nontender, no hepatosplenomegaly Musculoskeletal: no cyanosis or clubbing, extremities motor strength 5/5 Skin: no rashes, warm and dry Neurologic: moves all extremities and awake; not confused Psychiatric: Orientation: alert and oriented x 3 Eye Contact: + poor eye contact Motor Behavior: + psychomotor agitation Speech: + pressured speech Affect: + anxious affect Mood: + anxious mood Insight: + limited insight Judgement: + poor judgement Results & Data Results & Data ([facility]) Vital Signs (Past 12 Hours) Vital Signs Temp Pulse Resp BP Pulse Ox O2 Del Method O2 Flow Rate 04/16/22 11:52 80 L Room Air 04/16/22 11:45 Nasal Cannula 3 04/16/22 11:02 36.2 C L 101 H 18 120/70 92 Nasal Cannula 2.5 Laboratory Results Abnormal lab results 04/16/22 04/16/22 04/16/22 Range/Units 11:42 11:42 12:06 RBC 2.73 L (3.93-5.22) M/uL Hgb 8.3 L (12.0-16.0) g/dl Hct 26.7 L (34.1-44.9) % MCHC 31.1 L (32.0-36.0) g/dL RDW Std Deviation 65.9 H (36.4-46.3) fL RDW Coeff of [place] 19.6 H (11.5-14.5) % Plt Count 689 H (130-400) K/uL MPV 9.2 L (9.4-12.3) fL Neut # (Auto) 7.84 H (1.4-6.5) K/uL Lymph # (Auto) 0.74 L (1.2-3.4) K/uL Immature Gran # (Auto) 0.46 H (0.00-0.02) K/uL Sodium 135 L (136-145) mmol/L Glucose 134 H (70-99(Fasting)) mg/dl Total Bilirubin 1.7 H (0.2-1.0) mg/dl Total Protein 5.8 L (6.0-8.3) gm/dl Globulin 2.2 L (2.5-4.0) gm/dl SARS-CoV-2, RNA, NAAT POSITIVE A* (NEGATIVE) Diagnostic Findings XR chest 1V portable HISTORY: Shortness of breath. Atypical Chest Pain COMPARISON: Chest 04/15/2022. FINDINGS: No pneumothorax. The cardiac silhouette is mildly enlarged. No pleural effusions. There is mild central pulmonary vascular congestion without overt edema. No new focal lung consolidations to suggest pneumonia. IMPRESSION: Cardiomegaly with mild central pulmonary vascular congestion without overt edema. Medications Administered ER medications given: Dexamethasone 6 mg IV ECG Indication: SOB/dyspnea Rate (beats per minute): 96 Rhythm: normal sinus Comparison ECG Date: from (March 04, 2022) Change: no significant change Code Status & VTE Plan Code Status Full VTE Prophylaxis Plan VTE Prophylaxis will be ordered: Yes PG Care Time/CCT Total # of Minutes Spent Total Time Spent with Patient: Total time spent is greater than 50% in coordination of care (as documented) at patient's floor/unit and/or counseling patient: Coding Level of Care Code 80736 Initial Inpt Care Lvl 3 Diagnoses Acute and chronic respiratory failure with hypoxia J96.21 COVID-19 U07.1 Adjustment disorder with mixed anxiety and depressed mood F43.23 Pulmonary emboli I26.99 Acute cor pulmonale presence: unspecified Chronicity: acute Pulmonary embolism type: unspecified Autoimmune hemolytic anemia D59.10 Thrombocytosis D75.839 Iron deficiency anemia D50.9 (1) Pulmonary emboli Acute cor pulmonale presence: unspecified Chronicity: acute Pulmonary embolism type: unspecified Qualified Code(s): I26.99 - Other pulmonary embolism without acute cor pulmonale
[2022-04-16] MEDS ORDERED: OPTIRAY 300 500mL IV ONE (15:48)
--- NOTE | 2022-04-16 15:54 | Electrocardiogram Report ---
Test Reason : Blood Pressure : / mmHG Vent. Rate : 096 BPM Atrial Rate : 096 BPM P-R Int : 128 ms QRS Dur : 082 ms QT Int : 352 ms P-R-T Axes : 011 029 018 degrees QTc Int : 444 ms Normal sinus rhythm Normal ECG When compared with ECG of 04-MAR-2022 12:31, No significant change was found Confirmed by Yung Lindsey ([id number]) on 04/16/2022 3:54:27 PM Referred By: Confirmed By:Mele Lindsey
--- NOTE | 2022-04-16 16:04 | CT Scan Report ---
CT ANGIOGRAPHY OF THE CHEST, PULMONARY EMBOLUS PROTOCOL CLINICAL HISTORY: Hypoxia. Evaluate for pulmonary embolus. COMPARISON STUDY: Chest CT March 06, 2022. Chest radiograph performed earlier today. TECHNIQUE: Following IV administration of 110 mL of Optiray, helical axial images of the chest were o btained utilizing the pulmonary embolus protocol. Maximal intensity projections and sagittal and cor onal reformats were viewed on an independent 3D workstation. IV contrast was administered without co mplication. Automated exposure control was utilized for the study. A dose lowering technique was ut ilized adhering to the principles of ALARA. CT DOSE: 264.92 mGy.cm FINDINGS: No pulmonary emboli are identified. There is no thoracic aortic dissection. Moderate cardi omegaly is noted. There are trace bilateral pleural effusions. No pneumothorax is present. Interlobul ar septal thickening is noted. Additional ground glass opacities within the lungs are present. No acu te fracture or suspicious lesion within the bony thorax is noted. A 2.7 cm cystic left lobe thyroid n odule is unchanged. A small hiatal hernia is present. There is mild splenomegaly, partially imaged on this exam. IMPRESSION: 1. No pulmonary emboli identified. 2. Cardiomegaly with pulmonary edema and trace bilateral pleural effusions. ACT 112: Negative or not required by law. Electronically signed by: Perry Dai M.D. 04/16/2022 4:03 PM
[2022-04-16 16:06] LABS: INR 1.1 (0.9-1.1); Partial Thromboplastin Ratio 1.1; Partial Thromboplastin Time 29.1 Seconds (21.0-31.0); Prothrombin Time 11.3 Seconds (9.0-12.0)
[2022-04-16] MEDS ORDERED: LORazepam 0.5 MG TAB PO PRN (16:24)
[2022-04-16] MEDS ORDERED: FUROSEMIDE INJ 20 MG/2 ML VIAL IV ONE (16:47)
[2022-04-16] MEDS ORDERED: POTASSIUM CHLORIDE CRTAB 20 MEQ TABCR PO STA (16:57)
[2022-04-16] MEDS: RIVAROXABAN 20 MG TAB PO SCH (17:35)
[2022-04-16] MEDS ORDERED: INFLUENZA VACCINE HIGH DOSE PF 65+ 0.7 ML SYR IM ONE (17:54)
[2022-04-16] MEDS: OLANZAPINE 2.5 MG TAB PO SCH (20:51)
[2022-04-16] MEDS: SIMVASTATIN 40 MG TAB PO SCH (20:51)
[2022-04-16] MEDS: MELATONIN 3 MG TAB PO PRN (22:34)
[2022-04-16] MEDS: MIRTAZAPINE TAB 15 MG TAB PO SCH (22:35)
[2022-04-17 06:58] LABS: Basophils # (auto) 0.04 K/uL (0-0.2); Basophils % (auto) 0.4 %; Eosinophils # (auto) 0.14 K/uL (0-0.50); Eosinophils % (auto) 1.5 %; Hematocrit (blood only) 24.8 % (34.1-44.9); Hemoglobin 7.8 g/dl (12.0-16.0); Immature Granulocytes # (auto) 0.38 K/uL (0.00-0.02); Immature Granulocytes % (auto) 4.2 %; Lymphocytes # (auto) 1.09 K/uL (1.2-3.4); Mean Corpuscular Hemoglobin 30.8 pg (25.0-34.0); Mean Corpuscular Hgb Conc 31.5 g/dL (32.0-36.0); Mean Platelet Volume 9.1 fL (9.4-12.3); Monocytes # (auto) 0.62 K/uL (0.24-0.82); Monocytes % (auto) 6.8 %; Neutrophils # (auto) 6.79 K/uL (1.4-6.5); Neutrophils % (auto) 75.1 %; Platelet Count 604 K/uL (130-400); RDW Coefficient of Variation 19.2 % (11.5-14.5); RDW Standard Deviation 65.1 fL (36.4-46.3); Red Blood Count 2.53 M/uL (3.93-5.22); White Blood Count 9.06 K/ul (4.8-10.8)
[2022-04-17 07:23] LABS: Albumin Globulin Ratio 1.7 (0.9-2); Albumin Level 3.3 gm/dl (3.4-5.0); BUN Creatinine Ratio 16.9 (10-20); Bilirubin,Total 1.4 mg/dl (0.2-1.0); Calcium 8.6 mg/dl (8.5-10.1); Creatinine Clr Calc Pharmacy 56.9 ml/min; Est GFR (African American) 74.5 ml/min; Est GFR (Non-African American) 64.3 ml/min; Magnesium 2.3 mg/dl (1.7-2.4); Potassium 3.9 mmol/L (3.5-5.1); Total Protein 5.3 gm/dl (6.0-8.3)
[2022-04-17 07:29] LABS: Polychromasia 1+
--- NOTE | 2022-04-17 07:43 | Hospitalist Progress Note ---
Date of Service April 17, 2022 Assessment & Plan (1) Acute and chronic respiratory failure with hypoxia: Plan: Velma Tao is a 71 y/o female with recent diagnosis of autoimmune hemolytic anemia, anxiety/depression, and bilateral pulmonary emboli treated with Xarelto here for evaluation of SOB with low O2 sats admitted for ongoing management of hypoxia. She was diagnosed with autoimmune hemolytic anemia during a hospitalization 03/04- for generally feeling unwell with anxiety. She was found to have a Hbg drop from 8.9-5.4. She was given 4 units of blood and 90 mg prednisone daily. The patient has been tapering off prednisone as she transitioned to Rituxan - last steroid dose was about one week ago. Since discharge in February she has had 5 additional units of blood transfused. She has continued to feel generally unwell despite transfusions. 04/13 her oxygen saturations suddenly dropped to the 70s on RA and she has required oxygen continuously since then. She was see at the [facility] and was given an iron transfusion 04/14. Her Hgb was found to be 6.2, so she was given 2 units of blood on 04/15. Her oxygen saturation has not improved with transfusions so she was advised to come to the ED by Dr. Francisco and her PCP. She was also admitted 01/15-01/17 of this year with bilateral pulmonary emboli and left lower extremity DVT. She was treated with Xarelto. Initially on discharge she needed 2.5L NC with activity, but not with rest. The patient had a positive home covid test 03/20 - no PCR. She was Covid 19 positive in the ED 04/16. O2 saturation 80 on RA on presentation to the ED. Now 94 on 3 L NC. #Acute and chronic respiratory failure with hypoxia Echocardiogram in January with no regional wall abnormalities, moderate pulmonary hypertension with RVSP 56 mmHg - repeat ECHO -- left ventricular systolic function is normal. Grade I diastolic dysfunction (abnormal relaxation pattern). Right ventricular systolic pressure is normal. No significant valvular heart disease. COVID-19 unlikely playing any considerable role as explained below. Likely not infectious in etiology as procalcitonin and white blood count are WNL and patient is afebrile. Known pulmonary emboli and reports compliance with Xarelto - however given lack of alternative explanation for hypoxia and worsening autoimmune hemolytic anemia off of steroids will reassess her clot burden with CT chest for pulmonary emboli - no clots were found. Notably her coags were normal while on Xarelto on last admission. Current PT, INR, and PTT - coags normal. SOB/hypoxia may be due to pulmonary edema from recent blood transfusions. Nichole rivera does have grade I diastolic dysfunction. Lasix 20 mg IV given 10.06 am. Patient has signs of fluid over load on exam with 2+ pitting edema. Given another dose of Lasix this afternoon. Can consider AM diuresis as well if fluid status has not improved. BNP 191. This could also be in the setting of her tapering off prednisone with worsening autoimmune hemolytic anemia requiring 2 blood transfusions 04/16 and worsening generalized weakness likely leading to worse respiratory efforts and general recovery with possible atelectasis. [] Diurese as tolerated with IV Lasix, AM BMP [] Fluid restriction [] Strict Is/Os [] Daily weights #Covid 19 Her test is positive but she also had a home test on March 20 therefore I do not think this is playing a part in her current hypoxia. Unfortunately because she has no documented PCR test she will be under isolation precautions. #Adjustment disorder with mixed anxiety and depressed mood Patient's mood is labile oscillating between euthymic and tearful with poor insight. Patient notes that she "wishes this depression was over". Patient is on several medications for depression and anxiety. Continue her usual psychiatric medications with mirtazapine 50 mg p.o. at bedtime, Zyprexa 7.5 mg p.o. at bedtime, sertraline 200 mg p.o. daily [] PRN Ativan 1 mg for anxiety Q6 #Pulmonary emboli CT for PE as above to reassess for clot burden - no signs of clots Xarelto 20mg PO daily @ 6pm [] Hep Anti Xa LMW 0.23 (therapeutic 0.5-1.2), subtherapeutic? #Autoimmune hemolytic anemia Consult hematology for possible need to restart on high dose steroids. Repeat CBC in a.m. with LDH, iron studies, B12, folate, reticulocyte - iron studies cancelled as she was diagnosed with iron deficiency anemia via bone marrow biopsy. Did not tolerate steroids and 4th dose 3rd Rituxan. [] Venofer 300mg daily for 2 days [] AM CBC #Thrombocytosis Appears to have ongoing work-up for this with BCR/abl pending. Consult hematology as above Family present in the room 04/17 - updated and questions were answered. VTE Prophylaxis - Xarelto as above Diet - regular Disposition - admit to PCU, PT/OT evals Code status: full (2) COVID-19: (3) Adjustment disorder with mixed anxiety and depressed mood: (4) Pulmonary emboli: (5) Autoimmune hemolytic anemia: (6) Thrombocytosis: (7) Iron deficiency anemia: Admission and Anticipated Discharge Date Admission Date: April 16, 2022 Supervising Physician Co-Signing Physician Notes I saw and examined patient with Dr. Pearson. I agree with her assessment and plan as documented. Patient was admitted with what appears to be fluid overload secondary to recent blood transfusions for anemia. She has a mild component of diastolic heart failure. She is currently on 3 L of oxygen and would continue benefiting from ongoing IV Lasix to pull more fluid off. She will receive IV iron transfusions as per recommendations of hematology. Hematology has been consulted and we appreciate their recommendations of care. Once fluid status is under better control and she is no longer having an oxygen requirement she would be stable enough for discharge but need to ensure that she can sustain this. Her overall lab work looks unremarkable at this time. Subjective Patient anxious with labile mood. Keeps repeating "I just want to feel better". She does note that she feels better than previously and is breathing much better on 3 L NC. She denies any CP or abdominal pain. No n/v or difficulty with urination. Review of Systems Review of Systems: See HPI Physical Exam Constitutional: WD/WN, vitals as above Eyes: + anicteric sclerae; normal pupil size ENMT: external ear and nose normal, oropharynx normal Neck: trachea midline, no thyromegaly Respiratory: normal respiratory effort; no respiratory distress Auscultation: no diminished lung sounds, no rales, no rhonchi and no wheezes Cardiovascular: RRR no murmurs rubs or gallops 1-2+ pitting edema bilateral lower extremities Musculoskeletal: no gross deformities, moving all extremities Skin: no rashes, warm and dry Neurologic: moves all extremities and awake; not confused Psychiatric: Orientation: alert and oriented x 3 Eye Contact: + poor eye contact Motor Behavior: + psychomotor agitation Speech: + pressured speech Affect: + anxious affect Mood: + anxious mood Insight: + limited insight Judgement: + poor judgement Results & Data Results & Data ([facility]) Vital Signs (Past 12 Hours) Vital Signs Temp Pulse Pulse Resp BP Pulse Ox O2 Del Method 04/17/22 03:00 37.0 C 80 18 100/46 L 98 Nasal Cannula 04/16/22 23:00 97 H 04/16/22 20:20 Nasal Cannula 04/16/22 22:29 37.1 C 84 18 121/69 97 Nasal Cannula O2 Flow Rate 04/17/22 03:00 3 04/16/22 23:00 04/16/22 20:20 3 04/16/22 22:29 3 Laboratory Results 04/17/22 04/17/22 04/16/22 Range/Units 06:32 06:32 16:46 WBC 9.06 (4.8-10.8) K/ul RBC 2.53 L (3.93-5.22) M/uL Hgb 7.8 L (12.0-16.0) g/dl Hct 24.8 L (34.1-44.9) % MCV 98.0 (80.0-100.0) fL MCH 30.8 (25.0-34.0) pg MCHC 31.5 L (32.0-36.0) g/dL RDW Std Deviation 65.1 H (36.4-46.3) fL RDW Coeff of Warren 19.2 H (11.5-14.5) % Plt Count 604 H (130-400) K/uL MPV 9.1 L (9.4-12.3) fL Immature Gran % (Auto) 4.2 % Neut % (Auto) 75.1 % Lymph % (Auto) 12.0 % Pickett % (Auto) 6.8 % Eos % (Auto) 1.5 % Baso % (Auto) 0.4 % Neut # (Auto) 6.79 H (1.4-6.5) K/uL Lymph # (Auto) 1.09 L (1.2-3.4) K/uL Pickett # (Auto) 0.62 (0.24-0.82) K/uL Eos # (Auto) 0.14 (0-0.50) K/uL Baso # (Auto) 0.04 (0-0.2) K/uL Immature Gran # (Auto) 0.38 H (0.00-0.02) K/uL Polychromasia 1+ PT (9.0-12.0) Seconds INR (0.9-1.1) APTT (21.0-31.0) Seconds PTT Ratio Heparin Anti-Xa, LM Wt 0.23 (< 0.10) IU/ML Sodium 138 (136-145) mmol/L Potassium 3.9 (3.5-5.1) mmol/L Chloride 104 (98-107) mmol/L Carbon Dioxide 28 (21-32) mmol/L Anion Gap 6 (3-11) BUN 15 (6-23) mg/dl Creatinine 0.89 (0.6-1.2) mg/dl Est Cr Clr Drug Dosing 56.9 Est GFR ( Amer) 74.5 ml/min Est GFR (Non-Af Amer) 64.3 ml/min BUN/Creatinine Ratio 16.9 (10-20) Glucose 94 (70-99(Fasting)) mg/dl Calcium 8.6 (8.5-10.1) mg/dl Magnesium 2.3 (1.7-2.4) mg/dl Total Bilirubin 1.4 H (0.2-1.0) mg/dl AST 18 (13-39) U/L ALT 12 (7-52) U/L Alkaline Phosphatase 44 (34-104) U/L Troponin I High Sens (0-14) pg/ml B-Natriuretic Peptide (0-100) pg/ml Total Protein 5.3 L (6.0-8.3) gm/dl Albumin 3.3 L (3.4-5.0) gm/dl Globulin 2.0 L (2.5-4.0) gm/dl Albumin/Globulin Ratio 1.7 (0.9-2) Lipase (11-82) U/L Procalcitonin (0-0.5) ng/ml SARS-CoV-2, RNA, NAAT (NEGATIVE) 04/16/22 04/16/22 04/16/22 Range/Units 14:21 12:06 11:42 WBC (4.8-10.8) K/ul RBC (3.93-5.22) M/uL Hgb (12.0-16.0) g/dl Hct (34.1-44.9) % MCV (80.0-100.0) fL MCH (25.0-34.0) pg MCHC (32.0-36.0) g/dL RDW Std Deviation (36.4-46.3) fL RDW Coeff of Warren (11.5-14.5) % Plt Count (130-400) K/uL MPV (9.4-12.3) fL Immature Gran % (Auto) % Neut % (Auto) % Lymph % (Auto) % Pickett % (Auto) % Eos % (Auto) % Baso % (Auto) % Neut # (Auto) (1.4-6.5) K/uL Lymph # (Auto) (1.2-3.4) K/uL Pickett # (Auto) (0.24-0.82) K/uL Eos # (Auto) (0-0.50) K/uL Baso # (Auto) (0-0.2) K/uL Immature Gran # (Auto) (0.00-0.02) K/uL Polychromasia PT 11.3 (9.0-12.0) Seconds INR 1.1 (0.9-1.1) APTT 29.1 (21.0-31.0) Seconds PTT Ratio 1.1 Heparin Anti-Xa, LM Wt (< 0.10) IU/ML Sodium (136-145) mmol/L Potassium (3.5-5.1) mmol/L Chloride (98-107) mmol/L Carbon Dioxide (21-32) mmol/L Anion Gap (3-11) BUN (6-23) mg/dl Creatinine (0.6-1.2) mg/dl Est Cr Clr Drug Dosing Est GFR ( Amer) ml/min Est GFR (Non-Af Amer) ml/min BUN/Creatinine Ratio (10-20) Glucose (70-99(Fasting)) mg/dl Calcium (8.5-10.1) mg/dl Magnesium (1.7-2.4) mg/dl Total Bilirubin (0.2-1.0) mg/dl AST (13-39) U/L ALT (7-52) U/L Alkaline Phosphatase (34-104) U/L Troponin I High Sens (0-14) pg/ml B-Natriuretic Peptide 191 H (0-100) pg/ml Total Protein (6.0-8.3) gm/dl Albumin (3.4-5.0) gm/dl Globulin (2.5-4.0) gm/dl Albumin/Globulin Ratio (0.9-2) Lipase (11-82) U/L Procalcitonin (0-0.5) ng/ml SARS-CoV-2, RNA, NAAT POSITIVE A* (NEGATIVE) 04/16/22 04/16/22 04/16/22 Range/Units 11:42 11:42 11:42 WBC 9.95 (4.8-10.8) K/ul RBC 2.73 L (3.93-5.22) M/uL Hgb 8.3 L (12.0-16.0) g/dl Hct 26.7 L (34.1-44.9) % MCV 97.8 D (80.0-100.0) fL MCH 30.4 (25.0-34.0) pg MCHC 31.1 L (32.0-36.0) g/dL RDW Std Deviation 65.9 H (36.4-46.3) fL RDW Coeff of Warren 19.6 H (11.5-14.5) % Plt Count 689 H (130-400) K/uL MPV 9.2 L (9.4-12.3) fL Immature Gran % (Auto) 4.6 % Neut % (Auto) 78.9 % Lymph % (Auto) 7.4 % Pickett % (Auto) 7.0 % Eos % (Auto) 1.5 % Baso % (Auto) 0.6 % Neut # (Auto) 7.84 H (1.4-6.5) K/uL Lymph # (Auto) 0.74 L (1.2-3.4) K/uL Pickett # (Auto) 0.70 (0.24-0.82) K/uL Eos # (Auto) 0.15 (0-0.50) K/uL Baso # (Auto) 0.06 (0-0.2) K/uL Immature Gran # (Auto) 0.46 H (0.00-0.02) K/uL Polychromasia PT (9.0-12.0) Seconds INR (0.9-1.1) APTT (21.0-31.0) Seconds PTT Ratio Heparin Anti-Xa, LM Wt (< 0.10) IU/ML Sodium 135 L (136-145) mmol/L Potassium 3.7 (3.5-5.1) mmol/L Chloride 103 (98-107) mmol/L Carbon Dioxide 25 (21-32) mmol/L Anion Gap 7 (3-11) BUN 11 (6-23) mg/dl Creatinine 0.86 (0.6-1.2) mg/dl Est Cr Clr Drug Dosing Not Reportable Est GFR ( Amer) 77.7 ml/min Est GFR (Non-Af Amer) 67.0 ml/min BUN/Creatinine Ratio 12.8 (10-20) Glucose 134 H (70-99(Fasting)) mg/dl Calcium 8.6 (8.5-10.1) mg/dl Magnesium (1.7-2.4) mg/dl Total Bilirubin 1.7 H (0.2-1.0) mg/dl AST 20 (13-39) U/L ALT 12 (7-52) U/L Alkaline Phosphatase 49 (34-104) U/L Troponin I High Sens 5.7 (0-14) pg/ml B-Natriuretic Peptide (0-100) pg/ml Total Protein 5.8 L (6.0-8.3) gm/dl Albumin 3.6 (3.4-5.0) gm/dl Globulin 2.2 L (2.5-4.0) gm/dl Albumin/Globulin Ratio 1.6 (0.9-2) Lipase 13 (11-82) U/L Procalcitonin 0.17 (0-0.5) ng/ml SARS-CoV-2, RNA, NAAT (NEGATIVE) Diagnostic Findings Chest X-Ray 04/16/22 11:53 XR chest 1V portable HISTORY: Shortness of breath. Atypical Chest Pain COMPARISON: Chest 04/15/2022. FINDINGS: No pneumothorax. The cardiac silhouette is mildly enlarged. No pleural effusions. There is mild central pulmonary vascular congestion without overt edema. No new focal lung consolidations to suggest pneumonia. IMPRESSION: Cardiomegaly with mild central pulmonary vascular congestion without overt edema. Chest CTA 04/16/22 15:03 CT ANGIOGRAPHY OF THE CHEST, PULMONARY EMBOLUS PROTOCOL CLINICAL HISTORY: Hypoxia. Evaluate for pulmonary embolus. COMPARISON STUDY: Chest CT March 06, 2022. Chest radiograph performed earlier today. TECHNIQUE: Following IV administration of 110 mL of Optiray, helical axial images of the chest were obtained utilizing the pulmonary embolus protocol. Maximal intensity projections and sagittal and coronal reformats were viewed on an independent 3D workstation. IV contrast was administered without complication. Automated exposure control was utilized for the study. A dose lowering technique was utilized adhering to the principles of ALARA. CT DOSE: 264.92 mGy.cm FINDINGS: No pulmonary emboli are identified. There is no thoracic aortic dissection. Moderate cardiomegaly is noted. There are trace bilateral pleural effusions. No pneumothorax is present. Interlobular septal thickening is noted. Additional ground glass opacities within the lungs are present. No acute fracture or suspicious lesion within the bony thorax is noted. A 2.7 cm cystic left lobe thyroid nodule is unchanged. A small hiatal hernia is present. There is mild splenomegaly, partially imaged on this exam. IMPRESSION: 1. No pulmonary emboli identified. 2. Cardiomegaly with pulmonary edema and trace bilateral pleural effusions. ECHO 04/17/22: Left ventricular systolic function is normal. Grade I diastolic dysfunction (abnormal relaxation pattern). Right ventricular systolic pressure is normal. No significant valvular heart disease. Resident Activity Tracking Resident Involvement: Resident Care Provided Care Provided: Adult Hospital Medicine (1) Pulmonary emboli Acute cor pulmonale presence: unspecified Chronicity: acute Pulmonary embolism type: unspecified Qualified Code(s): I26.99 - Other pulmonary embolism without acute cor pulmonale
[2022-04-17] MEDS: SERTRALINE HCL 100 MG TABLET PO SCH (08:06)
[2022-04-17] MEDS: CYANOCOBALAMIN (B-12) 500 MCG TABLET PO SCH (08:06)
[2022-04-17] MEDS: PANTOprazole 40 MG TAB PO SCH (08:07)
[2022-04-17] MEDS: FOLIC ACID 1 MG TAB PO SCH (08:07)
[2022-04-17] MEDS ORDERED: FUROSEMIDE INJ 20 MG/2 ML VIAL IV SCH (09:00)
--- NOTE | 2022-04-17 09:27 | XCELERA ---
[id number]
--- NOTE | 2022-04-17 10:38 | Consultation ---
Date of Consultation April 17, 2022 Assessment & Plan (1) Thrombocytosis: Bone marrow biopsy negative. Likely reactive/due to iron deficiency (2) Iron deficiency anemia: Received 1 dose of Venofer as an outpatient (3) Autoimmune hemolytic anemia: Not responsive to rituximab and steroids (4) Symptomatic anemia: Plan 71-year-old female with history of autoimmune hemolytic anemia which was not responsive to steroids and does not appear to have responded to rituximab. Patient recently had a bone marrow biopsy which is negative for underlying hematologic malignancy. She was admitted with worsening shortness of breath and was found to have COVID-19 infection. Suspect that her shortness of breath is most likely multifactorial due to possible pulmonary edema, COVID-19 infection and anemia. Would recommend giving IVIG 1 g/kg x 2 days for autoimmune hemolytic anemia since this has not been responsive to steroids and rituximab. Also recommend IV Venofer 300 mg every other day x2 doses for iron deficiency noted on bone marrow biopsy. Recommend checking daily CBC, bilirubin and LDH to assess for response to IVIG. If she does not respond to IVIG, will consider starting her on cyclophosphamide as an outpatient. History of Present Illness Reason for Consultation: Autoimmune hemolytic anemia Attending Physician: Claus Escalante, History of Present Illness Ms. Tao is a pleasant 71-year-old female with history of extensive bilateral PEs and autoimmune hemolytic anemia. She was diagnosed with warm autoimmune hemolytic anemia in February, after presenting to the ER with complaints of fatigue, palpitations and dizziness. Hemoglobin was noted to be 5.4. Work-up obtained at that time revealed hyperbilirubinemia with elevated LDH and reticulocytosis. Arthur test was positive for IgG and weakly positive for C3b. Work-up for underlying hematologic malignancy including MPN mutation analysis, flow cytometry for PNH and CT CAP were negative. She was placed on high-dose steroids and transfused with several units of PRBC. Upon discharge from hospital, hemoglobin was noted to have improved to 9.7 but this was short-lived as she stopped responding to steroids with drop of hemoglobin to 8.3 during my outpatient evaluation of her 03/20/2022. She also complained of severe side effects from steroids. As such, steroids had to be weaned off pretty quickly. She then started IV rituximab on 03/24/2022 and received a fourth dose of weekly IV rituximab on 04/14/2022. Labs obtained at hematology clinic on Thursday revealed hemoglobin of 6.3 for which she was transfused with 2 units of PRBC she presented to the ER at [facility] yesterday with complaints of shortness of breath with oxygen saturation in the low 80s. Work-up obtained was positive for COVID-19 infection. Hemoglobin on admission was noted to be 8.3. Allergies Allergy/AdvReac Type Severity Reaction Status Date / Time No Known Allergies Allergy Verified 04/15/22 10:36 Home Medications Medication Instructions Recorded Confirmed Type simvastatin 40 mg tablet 40 mg PO HS 01/15/22 04/16/22 History rivaroxaban 20 mg tablet (Xarelto) 20 mg PO Q24H 02/06/22 04/16/22 History lorazepam 1 mg tablet 0.5 - 1 mg PO BID PRN severe 03/04/22 04/16/22 History anxiety mirtazapine 15 mg tablet 15 mg PO HS 03/04/22 04/16/22 History cyanocobalamin (vitamin B-12) 1,000 mcg PO DAILY #30 caps 03/08/22 04/16/22 Rx 1,000 mcg capsule folic acid 1 mg tablet 1 mg PO QAM #30 tabs 03/08/22 04/16/22 Rx pantoprazole 40 mg tablet,delayed 40 mg PO QAM #30 tabs 03/08/22 04/16/22 Rx release sertraline 100 mg tablet (Zoloft) 200 mg PO DAILY 04/01/22 04/16/22 History olanzapine 7.5 mg tablet (Zyprexa) 7.5 mg PO HS 04/15/22 04/16/22 History Patient History Medical History Autoimmune hemolytic anemia Chronic low back pain Congenital ptosis of right eyelid GERD (gastroesophageal reflux disease) Hx of colonic polyps Hyperlipidemia Surgical History H/O cataract extraction b/l Family History Father Myocardial infarction Mother Pancreatitis Denies family history of Deep vein thrombosis Pulmonary embolism Social History Smoking Status: Never smoker Second Hand Exposure: No; Hx Alcohol Use: No Hx Substance Use: No Preferred Language: Romanian Communication Ability: Effective Varnish Maker Required: No Beliefs That Will Affect Care: Taoism marital status: Current Living Situation: Spouse Current Living Situation Comment: in [place] current occupational status: retired How many Children do You have: 2 How many Children do You have Comment: 1 son, 1 daughter Other Information That Helps Us Care for You: No Feels Safe at Home: Yes Safety Concerns: Feels Safe At This Time Assistive Devices: None Results & Data ([facility]) Vital Signs (Past 12 Hours) Vital Signs Temp Pulse Pulse Resp BP BP Pulse Ox 04/17/22 09:05 04/17/22 09:03 97 H 04/17/22 08:53 94 04/17/22 07:42 36.8 C 91 H 18 111/61 94 04/17/22 03:00 37.0 C 80 18 100/46 L 98 04/16/22 23:00 97 H 04/16/22 22:29 37.1 C 84 18 121/69 97 O2 Del Method O2 Flow Rate 04/17/22 09:05 Nasal Cannula 3 04/17/22 09:03 04/17/22 08:53 04/17/22 07:42 Nasal Cannula 3 04/17/22 03:00 Nasal Cannula 3 04/16/22 23:00 04/16/22 22:29 Nasal Cannula 3 PG Care Time/CCT Total # of Minutes Spent Total Time Spent with Patient: Total time spent is greater than 50% in coordination of care (as documented) at patient's floor/unit and/or counseling patient: Coding Level of Care Code 15027 Inpt Consult Level 3 Diagnoses Thrombocytosis D75.839 Iron deficiency anemia D50.9 Autoimmune hemolytic anemia D59.10 Symptomatic anemia D64.9
[2022-04-17] MEDS ORDERED: FUROSEMIDE INJ 20 MG/2 ML VIAL IV ONE (12:15)
[2022-04-17] MEDS ORDERED: IRON SUCROSE 300 MG in SODIUM CHLORIDE 0.9% 250 ML IV SCH (12:30)
[2022-04-17] MEDS: LORazepam 1 MG TAB PO PRN ×2 (12:33→21:13)
--- NOTE | 2022-04-17 15:57 | Oncology Consultation ---
Date of Consultation April 17, 2022 Assessment & Plan (1) Thrombocytosis: (2) Autoimmune hemolytic anemia: (3) Iron deficiency anemia: History of Present Illness Attending Physician: Claus Escalante DO Allergies Allergy/AdvReac Type Severity Reaction Status Date / Time No Known Allergies Allergy Verified 04/15/22 10:36 Home Medications Medication Instructions Recorded Confirmed Type simvastatin 40 mg tablet 40 mg PO HS 01/15/22 04/16/22 History rivaroxaban 20 mg tablet (Xarelto) 20 mg PO Q24H 02/06/22 04/16/22 History lorazepam 1 mg tablet 0.5 - 1 mg PO BID PRN severe 03/04/22 04/16/22 History anxiety mirtazapine 15 mg tablet 15 mg PO HS 03/04/22 04/16/22 History cyanocobalamin (vitamin B-12) 1,000 mcg PO DAILY #30 caps 03/08/22 04/16/22 Rx 1,000 mcg capsule folic acid 1 mg tablet 1 mg PO QAM #30 tabs 03/08/22 04/16/22 Rx pantoprazole 40 mg tablet,delayed 40 mg PO QAM #30 tabs 03/08/22 04/16/22 Rx release sertraline 100 mg tablet (Zoloft) 200 mg PO DAILY 04/01/22 04/16/22 History olanzapine 7.5 mg tablet (Zyprexa) 7.5 mg PO HS 04/15/22 04/16/22 History Patient History Medical History Autoimmune hemolytic anemia Chronic low back pain Congenital ptosis of right eyelid GERD (gastroesophageal reflux disease) Hx of colonic polyps Hyperlipidemia Surgical History H/O cataract extraction b/l Family History Father Myocardial infarction Mother Pancreatitis Denies family history of Deep vein thrombosis Pulmonary embolism Social History Smoking Status: Never smoker Second Hand Exposure: No; Hx Alcohol Use: No Hx Substance Use: No Preferred Language: Occitan Communication Ability: Effective Orthotic Fitter Required: No Beliefs That Will Affect Care: None marital status: Current Living Situation: Spouse Current Living Situation Comment: in [place] current occupational status: retired How many Children do You have: 2 How many Children do You have Comment: 1 son, 1 daughter Other Information That Helps Us Care for You: No Feels Safe at Home: Yes Safety Concerns: Feels Safe At This Time Assistive Devices: None Results & Data ([facility]) Vital Signs (Past 12 Hours) Vital Signs Temp Pulse Pulse Resp BP Pulse Ox Pulse Ox 04/17/22 13:48 93 04/17/22 09:05 04/17/22 09:03 97 H 04/17/22 08:53 94 04/17/22 07:42 36.8 C 91 H 18 111/61 94 Pulse Ox Pulse Ox O2 Del Method O2 Flow Rate O2 Flow Rate O2 Flow Rate O2 Flow Rate 04/17/22 13:48 93 88 L 3 3 3 04/17/22 09:05 Nasal Cannula 3 04/17/22 09:03 04/17/22 08:53 04/17/22 07:42 Nasal Cannula 3
[2022-04-17] MEDS: RIVAROXABAN 20 MG TAB PO SCH (16:46)
[2022-04-17] MEDS: SIMVASTATIN 40 MG TAB PO SCH (21:14)
[2022-04-17] MEDS: MIRTAZAPINE TAB 15 MG TAB PO SCH (22:30)
[2022-04-17] MEDS: OLANZAPINE 2.5 MG TAB PO SCH (22:30)
[2022-04-18 06:07] LABS: Hematocrit (blood only) 25.2 % (34.1-44.9); Hemoglobin 7.9 g/dl (12.0-16.0); Mean Corpuscular Hemoglobin 30.9 pg (25.0-34.0); Mean Corpuscular Hgb Conc 31.3 g/dL (32.0-36.0); Mean Corpuscular Volume 98.4 fL (80.0-100.0); Mean Platelet Volume 9.2 fL (9.4-12.3); Platelet Count 639 K/uL (130-400); RDW Coefficient of Variation 18.6 % (11.5-14.5); RDW Standard Deviation 64.1 fL (36.4-46.3); Red Blood Count 2.56 M/uL (3.93-5.22); White Blood Count 7.49 K/ul (4.8-10.8)
[2022-04-18 06:28] LABS: BUN Creatinine Ratio 23.1 (10-20); Calcium 8.4 mg/dl (8.5-10.1); Creatinine Clr Calc Pharmacy 55.2 ml/min; Est GFR (African American) 72.5 ml/min; Est GFR (Non-African American) 62.6 ml/min; Potassium 3.6 mmol/L (3.5-5.1)
--- NOTE | 2022-04-18 06:58 | Hospitalist Progress Note ---
Date of Service April 18, 2022 Assessment & Plan (1) Acute and chronic respiratory failure with hypoxia: Plan: Velma Tao is a 71 y/o female with recent diagnosis of autoimmune hemolytic anemia, anxiety/depression, and bilateral pulmonary emboli treated with Xarelto here for evaluation of SOB with low O2 sats admitted for ongoing management of hypoxia slowly clinically improving. #Acute and chronic respiratory failure with hypoxia Echocardiogram in January with no regional wall abnormalities, moderate pulmonary hypertension with RVSP 56 mmHg - repeat ECHO -- left ventricular systolic function is normal. Grade I diastolic dysfunction (abnormal relaxation pattern). Right ventricular systolic pressure is normal. No significant valvular heart disease. Likely related to fluid overload in the setting of recent transfusion with Grade I diastolic HF. Worsening autoimmune hemolytic anemia may be playing a role as well leading to weakness and worse respiratory efforts. CTA did not show any clots. PT/PTT/INR WNL. Patient continues to have edema on physical exam. Continue with diuresis as BP and kidneys tolerate. [] Diurese as tolerated with IV Lasix, AM BMP [] Fluid restriction [] Strict Is/Os [] Daily weights #Autoimmune hemolytic anemia Hematology onboard. Rec AM CBC, LDH, Tbili. IVIG 1 g/kg for two days. Venofer 300 mg every other day for 2 days 1/2 bags given. Can consider cyclophosphamide outpatient. [] Venofer 300mg every other day for 2 days - 1/2 bags given 04/17. [] IVIG 1 g/kg [] AM CBC, LDH, Tbili #Adjustment disorder with mixed anxiety and depressed mood Patient's mood is labile oscillating between euthymic and tearful with poor insight. Patient notes that she "wishes this depression was over". Patient is on several medications for depression and anxiety. Continue her usual psychiatric medications with mirtazapine 50 mg p.o. at bedtime, Zyprexa 7.5 mg p.o. at bedtime, sertraline 200 mg p.o. daily [] PRN Ativan 1 mg for anxiety Q6 #Pulmonary emboli CT for PE as above to reassess for clot burden - no signs of clots Xarelto 20mg PO daily @ 6pm [] Hep Anti Xa LMW 0.23 (therapeutic 0.5-1.2) #Thrombocytosis Appears to have ongoing work-up for this with BCR/abl pending. Consult hematology as above #Covid 19 Her test is positive but she also had a home test on March 20 therefore I do not think this is playing a part in her current hypoxia. Unfortunately because she has no documented PCR test she will be under isolation precautions. Family present in the room 04/17 - updated and questions were answered. VTE Prophylaxis - Xarelto as above Diet - regular Disposition - admit to PCU, PT/OT evals Code status: full (2) COVID-19: (3) Adjustment disorder with mixed anxiety and depressed mood: (4) Pulmonary emboli: (5) Autoimmune hemolytic anemia: (6) Thrombocytosis: (7) Iron deficiency anemia: Admission and Anticipated Discharge Date Admission Date: April 16, 2022 Supervising Physician Co-Signing Physician Notes Attending attestation Pt seen and examined in concert with Dr. Pearson. In agreement with the documented findings as noted in the resident documentation with any exceptions or additions as noted here. Ongoing anxiety with improving dyspnea and tachycardia with diuresis. Acute on chronic hypoxic respiratory failure in the setting of fluid overload 2/2 multple transfusions - gradually improving with furosemide with stable Cr approaching baseline weight. Ongoing monitoring. AIHA - hematology consultation - IVIG without current complication, will continue iron therapy every other for one more dose tomorrow and monitor Adjustment disorder - ongoing tearful but more relaxed when left to rest. Tolerating medications without significant sedation in hospital setting. Else see resident documentation as noted. Subjective Patient anxious with labile mood. Keeps repeating "I just want to feel better". She does note that she feels better than previously and is breathing much better on 3 L NC. Review of Systems Review of Systems: See HPI Physical Exam Constitutional: WD/WN, vitals as above Eyes: + anicteric sclerae; normal pupil size Respiratory: normal respiratory effort; no respiratory distress Auscultation: no diminished lung sounds, no rales, no rhonchi and no wheezes Skin: no rashes, warm and dry Neurologic: moves all extremities and awake; not confused Psychiatric: Orientation: alert and oriented x 3 Eye Contact: + poor eye contact Motor Behavior: + psychomotor agitation Speech: + pressured speech Affect: + anxious affect Mood: + anxious mood Insight: + limited insight Judgement: + poor judgement Results & Data Results & Data ([facility]) Vital Signs (Past 12 Hours) Vital Signs Temp Pulse Pulse Resp BP BP Pulse Ox 04/18/22 03:28 37.5 C 121 H 18 98/51 L 95 04/17/22 23:16 37.7 C H 126 H 24 101/46 L 94 04/17/22 23:14 127 H 04/17/22 23:14 04/17/22 20:32 37.7 C H 04/17/22 20:27 37.9 C H 125 H 22 108/67 92 O2 Del Method O2 Flow Rate 04/18/22 03:28 Nasal Cannula 3 04/17/22 23:16 Nasal Cannula 3 04/17/22 23:14 04/17/22 23:14 Nasal Cannula 3 04/17/22 20:32 04/17/22 20:27 Nasal Cannula 3 Laboratory Results 04/18/22 04/18/22 04/18/22 Range/Units 05:22 05:22 05:22 WBC (4.8-10.8) K/ul RBC (3.93-5.22) M/uL Hgb (12.0-16.0) g/dl Hct (34.1-44.9) % MCV (80.0-100.0) fL MCH (25.0-34.0) pg MCHC (32.0-36.0) g/dL RDW Std Deviation (36.4-46.3) fL RDW Coeff of Warren (11.5-14.5) % Plt Count (130-400) K/uL MPV (9.4-12.3) fL Sodium 136 (136-145) mmol/L Potassium 3.6 (3.5-5.1) mmol/L Chloride 102 (98-107) mmol/L Carbon Dioxide 26 (21-32) mmol/L Anion Gap 8 (3-11) BUN 21 (6-23) mg/dl Creatinine 0.91 (0.6-1.2) mg/dl Est Cr Clr Drug Dosing 55.2 ml/min Est GFR ( Amer) 72.5 ml/min Est GFR (Non-Af Amer) 62.6 ml/min BUN/Creatinine Ratio 23.1 H (10-20) Glucose 103 H (70-99(Fasting)) mg/dl Calcium 8.4 L (8.5-10.1) mg/dl Total Bilirubin 1.3 H (0.2-1.0) mg/dl Lactate Dehydrogenase 405 H (86-244) U/L 04/18/22 Range/Units 05:22 WBC 7.49 (4.8-10.8) K/ul RBC 2.56 L (3.93-5.22) M/uL Hgb 7.9 L (12.0-16.0) g/dl Hct 25.2 L (34.1-44.9) % MCV 98.4 (80.0-100.0) fL MCH 30.9 (25.0-34.0) pg MCHC 31.3 L (32.0-36.0) g/dL RDW Std Deviation 64.1 H (36.4-46.3) fL RDW Coeff of Warren 18.6 H (11.5-14.5) % Plt Count 639 H (130-400) K/uL MPV 9.2 L (9.4-12.3) fL Sodium (136-145) mmol/L Potassium (3.5-5.1) mmol/L Chloride (98-107) mmol/L Carbon Dioxide (21-32) mmol/L Anion Gap (3-11) BUN (6-23) mg/dl Creatinine (0.6-1.2) mg/dl Est Cr Clr Drug Dosing ml/min Est GFR ( Amer) ml/min Est GFR (Non-Af Amer) ml/min BUN/Creatinine Ratio (10-20) Glucose (70-99(Fasting)) mg/dl Calcium (8.5-10.1) mg/dl Total Bilirubin (0.2-1.0) mg/dl Lactate Dehydrogenase (86-244) U/L Resident Activity Tracking Resident Involvement: Resident Care Provided Care Provided: Adult Hospital Medicine (1) Pulmonary emboli Acute cor pulmonale presence: unspecified Chronicity: acute Pulmonary embolism type: unspecified Qualified Code(s): I26.99 - Other pulmonary embolism without acute cor pulmonale
[2022-04-18] MEDS: SERTRALINE HCL 100 MG TABLET PO SCH (09:01)
[2022-04-18] MEDS: CYANOCOBALAMIN (B-12) 500 MCG TABLET PO SCH (09:01)
[2022-04-18] MEDS: PANTOprazole 40 MG TAB PO SCH (09:01)
[2022-04-18] MEDS: FOLIC ACID 1 MG TAB PO SCH (09:01)
[2022-04-18] MEDS: LORazepam 1 MG TAB PO PRN ×2 (09:01→22:11)
[2022-04-18] MEDS ORDERED: IMMUNE GLOBULIN (HUMAN) SOLN IV SCH (10:15)
[2022-04-18] MEDS: Octagam 10% IVIG 5 gram bottle IV SCH (11:49)
[2022-04-18] MEDS ORDERED: FUROSEMIDE INJ 20 MG/2 ML VIAL IV ONE (12:14)
[2022-04-18] MEDS: [UNRECOGNIZED DRUG - OTHER] IV SCH ×2 (13:45→18:44)
[2022-04-18] MEDS: RIVAROXABAN 20 MG TAB PO SCH (16:40)
[2022-04-18] MEDS: OLANZAPINE 2.5 MG TAB PO SCH (22:12)
[2022-04-18] MEDS: MIRTAZAPINE TAB 15 MG TAB PO SCH (22:12)
[2022-04-18] MEDS: SIMVASTATIN 40 MG TAB PO SCH (22:13)
[2022-04-19] MEDS: ACETAMINOPHEN 325 MG TAB PO PRN ×2 (04:28→20:41)
--- NOTE | 2022-04-19 07:01 | Hospitalist Progress Note ---
Date of Service April 19, 2022 Assessment & Plan (1) Acute and chronic respiratory failure with hypoxia: Plan: Velma Tao is a 71 y/o female with recent diagnosis of autoimmune hemolytic anemia, anxiety/depression, and bilateral pulmonary emboli treated with Xarelto here for evaluation of SOB with low O2 sats admitted for ongoing management of hypoxia slowly clinically improving. #Acute and chronic respiratory failure with hypoxia Echocardiogram in January with no regional wall abnormalities, moderate pulmonary hypertension with RVSP 56 mmHg - repeat ECHO -- left ventricular systolic function is normal. Grade I diastolic dysfunction (abnormal relaxation pattern). Right ventricular systolic pressure is normal. No significant valvular heart disease. Likely related to fluid overload in the setting of recent transfusion with Grade I diastolic HF. Worsening autoimmune hemolytic anemia may be playing a role as well leading to weakness and worse respiratory efforts. CTA did not show any clots. PT/PTT/INR WNL. Patient appears to be euvolemic at this time. No need for further diuresis. [] Diurese as needed with IV Lasix, AM BMP [] Fluid restriction [] Strict Is/Os [] Daily weights #Autoimmune hemolytic anemia Hematology onboard. Rec AM CBC, LDH, Tbili. IVIG 1 g/kg for two days. Venofer 300 mg every other day for 2 days 2/2 bags given. Can consider cyclophosphamide outpatient. Discussed with Dr. Francisco - LDH improving, bili has normalized. She discussed that Hbg should stabilize over the next 24-48 hours. If it doesn't and continues to decrease we will look for another source of bleeding. Hemoglobin continues to drop 7.2 04/19. Recheck afternoon H&H - 7.4. O neg, + antibodies -- leukocyte reduced blood. Consent signed and in chart. [] Venofer 300mg every other day for 2 days - 2/2 bags given 04/17 and 04/19 [] IVIG 1 g/kg x2 - 04/18 and 04/19 [] Q12 CBC [] AM LDH, Tbili [] transfuse <7, O neg, + antibodies - leukocyte reduced blood - consent signed and in chart #Fever Patient had a temperature of 38.6 now afebrile. Likely in the setting of IVIG. CXR and UA to look for an infectious cause of fever. Can consider drawing blood cultures if she continues to fever. Continue to monitor. Can give Tylenol. [] Monitor temperature [] CXR [] UA [] blood cultures if she continues to fever #Adjustment disorder with mixed anxiety and depressed mood Patient's mood is labile oscillating between euthymic and tearful with poor insight. Patient notes that she "wishes this depression was over". Patient is on several medications for depression and anxiety. Continue her usual psychiatric medications with mirtazapine 50 mg p.o. at bedtime, Zyprexa 7.5 mg p.o. at bedtime, sertraline 200 mg p.o. daily [] PRN Ativan 1 mg for anxiety Q6 #Pulmonary emboli CT for PE as above to reassess for clot burden - no signs of clots Xarelto 20mg PO daily @ 6pm [] Hep Anti Xa LMW 0.23 (therapeutic 0.5-1.2) #Thrombocytosis Appears to have ongoing work-up for this with BCR/abl pending. Consult hematology as above #Covid 19 Her test is positive but she also had a home test on March 20 therefore I do not think this is playing a part in her current hypoxia. Unfortunately because she has no documented PCR test she will be under isolation precautions. Family present in the room 04/19 - updated and questions were answered. VTE Prophylaxis - Xarelto as above Diet - regular Disposition - admit to PCU, PT/OT evals Code status: full (2) COVID-19: (3) Adjustment disorder with mixed anxiety and depressed mood: (4) Pulmonary emboli: (5) Autoimmune hemolytic anemia: (6) Thrombocytosis: (7) Iron deficiency anemia: Admission and Anticipated Discharge Date Admission Date: April 16, 2022 Supervising Physician Co-Signing Physician Notes Attending attestation Pt seen and examined in concert with Dr. Pearson. In agreement with the documented findings as noted in the resident documentation with any exceptions or additions as noted here. Patient reports considerable anxiety and difficulty with focus which is worse than her normal baseline but stable on this admission. Overall improving dyspnea and tachycardia with diuresis. Acute on chronic hypoxic respiratory failure in the setting of COVID, fluid overload 2/2 multiple transfusions - tolerating diuresis with improvement and stable O2 requirement. AIHA - hematology consultation - IVIG without current complication, will hold further iron therapy due to fever, see below Fever - single fever without change in complaint, CXR and UA without significant concern for infection though UCx sent and pending. Likely 2/2 IVIG. Continue to monitor and consider BCx/further evaluation with repeat fever. Adjustment disorder - still anxious with rapid topic changes. Tolerating medications without significant sedation in hospital setting. Time spent with patient's spouse, daughter and patient reviewing current state of pathology, lab results, indications and impacts of medical therapy including IVIG and further management of anemia including potential need for further transfusions and diuresis in addition to addressing patient's spouses' interactions with staff. Total attending time spent face to face with this patient in the course of their care for counselin minutes. Else see resident documentation as noted. Subjective Patient anxious with labile mood. Does seem improved from yesterday. Patient is not teary in the room and seems more aware of her medical conditions. She denies any pain or SOB this AM. Review of Systems Review of Systems: See HPI Physical Exam Constitutional: WD/WN, vitals as above Eyes: + anicteric sclerae; normal pupil size Respiratory: normal respiratory effort; no respiratory distress Auscultation: no diminished lung sounds, no rales, no rhonchi and no wheezes Cardiovascular: RRR, no murmur, no edema Skin: no rashes, warm and dry Neurologic: moves all extremities and awake; not confused Psychiatric: Orientation: alert and oriented x 3 Eye Contact: + poor eye contact Motor Behavior: + psychomotor agitation Speech: + pressured speech Affect: + anxious affect Mood: + anxious mood Insight: + limited insight Judgement: + poor judgement Results & Data Results & Data ([facility]) Vital Signs (Past 12 Hours) Vital Signs Temp Pulse Pulse Resp BP Pulse Ox O2 Del Method 04/19/22 04:11 38.6 C H 119 H 19 103/59 L 93 Nasal Cannula 04/18/22 23:29 117 H 04/18/22 23:29 Nasal Cannula 04/18/22 22:35 37.5 C 120 H 18 120/65 95 Nasal Cannula 04/18/22 19:09 37.5 C 115 H 18 117/68 94 Nasal Cannula O2 Flow Rate 04/19/22 04:11 3 04/18/22 23:29 04/18/22 23:29 3 04/18/22 22:35 3 04/18/22 19:09 3 Laboratory Results 04/19/22 04/19/22 04/19/22 Range/Units 06:26 06:26 06:26 WBC 6.77 (4.8-10.8) K/ul RBC 2.39 L (3.93-5.22) M/uL Hgb 7.2 L (12.0-16.0) g/dl Hct 23.1 L (34.1-44.9) % MCV 96.7 (80.0-100.0) fL MCH 30.1 (25.0-34.0) pg MCHC 31.2 L (32.0-36.0) g/dL RDW Std Deviation 62.0 H (36.4-46.3) fL RDW Coeff of Warren 17.6 H (11.5-14.5) % Plt Count 633 H (130-400) K/uL MPV 9.2 L (9.4-12.3) fL Sodium 134 L (136-145) mmol/L Potassium 3.5 (3.5-5.1) mmol/L Chloride 102 (98-107) mmol/L Carbon Dioxide 27 (21-32) mmol/L Anion Gap 5 (3-11) BUN 16 (6-23) mg/dl Creatinine 0.97 (0.6-1.2) mg/dl Est Cr Clr Drug Dosing 51.8 ml/min Est GFR ( Amer) 67.2 ml/min Est GFR (Non-Af Amer) 57.9 ml/min BUN/Creatinine Ratio 16.5 (10-20) Glucose 119 H (70-99(Fasting)) mg/dl Calcium 8.4 L (8.5-10.1) mg/dl Total Bilirubin 0.6 D (0.2-1.0) mg/dl Lactate Dehydrogenase 291 H (86-244) U/L Diagnostic Findings No new imaging. Resident Activity Tracking Resident Involvement: Resident Care Provided Care Provided: Adult Hospital Medicine (1) Pulmonary emboli Acute cor pulmonale presence: unspecified Chronicity: acute Pulmonary embolism type: unspecified Qualified Code(s): I26.99 - Other pulmonary embolism without acute cor pulmonale
[2022-04-19 07:05] LABS: Hematocrit (blood only) 23.1 % (34.1-44.9); Hemoglobin 7.2 g/dl (12.0-16.0); Mean Corpuscular Hemoglobin 30.1 pg (25.0-34.0); Mean Corpuscular Hgb Conc 31.2 g/dL (32.0-36.0); Mean Corpuscular Volume 96.7 fL (80.0-100.0); Mean Platelet Volume 9.2 fL (9.4-12.3); Platelet Count 633 K/uL (130-400); RDW Coefficient of Variation 17.6 % (11.5-14.5); Red Blood Count 2.39 M/uL (3.93-5.22); White Blood Count 6.77 K/ul (4.8-10.8)
[2022-04-19 07:31] LABS: BUN Creatinine Ratio 16.5 (10-20); Bilirubin,Total 0.6 mg/dl (0.2-1.0); Calcium 8.4 mg/dl (8.5-10.1); Creatinine Clr Calc Pharmacy 51.8 ml/min; Est GFR (African American) 67.2 ml/min; Est GFR (Non-African American) 57.9 ml/min; Potassium 3.5 mmol/L (3.5-5.1)
[2022-04-19] MEDS: PANTOprazole 40 MG TAB PO SCH (07:47)
[2022-04-19] MEDS: FOLIC ACID 1 MG TAB PO SCH (07:47)
[2022-04-19] MEDS: CYANOCOBALAMIN (B-12) 500 MCG TABLET PO SCH (07:47)
[2022-04-19] MEDS: SERTRALINE HCL 100 MG TABLET PO SCH (07:48)
[2022-04-19] MEDS ORDERED: IRON SUCROSE 300 MG in SODIUM CHLORIDE 0.9% 250 ML IV ONE (09:00)
[2022-04-19] MEDS: Octagam 10% IVIG 5 gram bottle IV SCH (11:08)
[2022-04-19] MEDS: LORazepam 1 MG TAB PO PRN ×2 (11:14→20:42)
[2022-04-19] MEDS: [UNRECOGNIZED DRUG - OTHER] IV SCH ×3 (12:13→17:37)
[2022-04-19 13:18] LABS: Hematocrit (blood only) 23.9 % (34.1-44.9); Hemoglobin 7.4 g/dl (12.0-16.0); Mean Corpuscular Hemoglobin 30.3 pg (25.0-34.0); Mean Platelet Volume 9.1 fL (9.4-12.3); Platelet Count 671 K/uL (130-400); RDW Coefficient of Variation 17.6 % (11.5-14.5); RDW Standard Deviation 62.1 fL (36.4-46.3); Red Blood Count 2.44 M/uL (3.93-5.22); White Blood Count 7.32 K/ul (4.8-10.8)
--- NOTE | 2022-04-19 14:38 | XRay Report ---
XR chest 1V portable CLINICAL HISTORY: fever atelectasis COMPARISON STUDY: None available at time of interpretation due to PACS downtime. FINDINGS: Lung volumes are normal. There is no consolidation to suggest pneumonia. Linear left basila r opacity favors atelectasis. There is no pneumothorax or pleural effusion. Mild cardiomegaly is note d. Mediastinal contours are normal. There is no evidence for pulmonary edema. IMPRESSION: No acute cardiopulmonary findings. ACT 112: Negative or not required by law. Electronically signed by: Perry Dai M.D. 04/19/2022 2:35 PM
[2022-04-19 15:07] LABS: Appearance Urine Clear (Clear); Bacteria Urine Automated Negative (Negative); Bilirubin Urine Negative (Negative); Blood Urine Negative (Negative); Color Urine Dark Yellow; Epithelial Cell Urine Auto >30 /lpf (0-5); Glucose Urine UA 3+ (Negative); Ketones Urine Negative (Negative); Leukocyte Esterase Urine Trace (Negative); Nitrite Urine Negative (Negative); Protein Urine 1+ (Negative); RBC Urine Automated 0-4 /hpf (0-4); Specific Gravity Urine 1.032 (1.000-1.030); Urobilinogen Urine Positive (Negative)
[2022-04-19] MEDS: RIVAROXABAN 20 MG TAB PO SCH (17:18)
[2022-04-19] MEDS: SIMVASTATIN 40 MG TAB PO SCH (20:43)
[2022-04-19] MEDS: MIRTAZAPINE TAB 15 MG TAB PO SCH (22:22)
[2022-04-19] MEDS: OLANZAPINE 2.5 MG TAB PO SCH (22:23)
[2022-04-20 06:18] LABS: Hematocrit (blood only) 22.6 % (34.1-44.9); Mean Corpuscular Hemoglobin 30.2 pg (25.0-34.0); Mean Corpuscular Volume 97.4 fL (80.0-100.0); Mean Platelet Volume 9.3 fL (9.4-12.3); Platelet Count 624 K/uL (130-400); RDW Coefficient of Variation 17.3 % (11.5-14.5); RDW Standard Deviation 61.4 fL (36.4-46.3); Red Blood Count 2.32 M/uL (3.93-5.22); White Blood Count 6.67 K/ul (4.8-10.8)
[2022-04-20 06:44] LABS: BUN Creatinine Ratio 14.4 (10-20); Bilirubin,Total 0.5 mg/dl (0.2-1.0); Calcium 8.5 mg/dl (8.5-10.1); Creatinine Clr Calc Pharmacy 55.7 ml/min; Est GFR (African American) 73.5 ml/min; Est GFR (Non-African American) 63.4 ml/min; Potassium 3.8 mmol/L (3.5-5.1)
--- NOTE | 2022-04-20 07:22 | Hospitalist Progress Note ---
Date of Service April 20, 2022 Assessment & Plan (1) Acute and chronic respiratory failure with hypoxia: Plan: Velma Tao is a 71 y/o female with recent diagnosis of autoimmune hemolytic anemia, anxiety/depression, and bilateral pulmonary emboli treated with Xarelto here for evaluation of SOB with low O2 sats admitted for ongoing management of hypoxia slowly clinically improving. #Acute and chronic respiratory failure with hypoxia Echocardiogram in January with no regional wall abnormalities, moderate pulmonary hypertension with RVSP 56 mmHg - repeat ECHO -- left ventricular systolic function is normal. Grade I diastolic dysfunction (abnormal relaxation pattern). Right ventricular systolic pressure is normal. No significant valvular heart disease. Likely related to fluid overload in the setting of recent transfusion with Grade I diastolic HF. Worsening autoimmune hemolytic anemia may be playing a role as well leading to weakness and worse respiratory efforts. CTA did not show any clots. PT/PTT/INR WNL. Patient appears to be euvolemic at this time. No need for further diuresis. [] Diurese as needed with IV Lasix, AM BMP [] Fluid restriction [] Strict Is/Os [] Daily weights #Autoimmune hemolytic anemia Hematology onboard. Rec AM CBC, LDH, Tbili. IVIG 1 g/kg for two days. Venofer 300 mg every other day for 2 days 2/2 bags given. Can consider cyclophosphamide outpatient. Discussed with Dr. Francisco - LDH improving, bili has normalized. She discussed that Hbg should stabilize over the next 24-48 hours. If it doesn't and continues to decrease we will look for another source of bleeding. Venofer 300 mg Q48 2/2 bags completed 04/19. IVIG x2 completed 04/19. Hemoglobin continues to drop 7.2 04/19. Recheck afternoon H&H - 7.4. O neg, + antibodies -- leukocyte reduced blood. Consent signed and in chart. Hemoglobin 7.0 on 04/20 - ordered one unit. Will have another on standby if needed. Afternoon CBC. [] Q12 CBC [] AM LDH, Tbili [] transfuse <7, O neg, + antibodies - leukocyte reduced blood - consent signed and in chart [] 1 unit PRBC leukocyte reduced ordered #Fever Patient had a temperature of 38.6 now afebrile. Likely in the setting of IVIG. CXR and UA to look for an infectious cause of fever - CXR did not show signs of pneumonia, UA showed mixed skin iliana. Can consider drawing blood cultures if she continues to fever. Continue to monitor. Can give Tylenol. Patient had a 39.4 fever - blood cultures drawn. Patient denies any headaches, neck pain, urinary symptoms, CP, SOB, muscle aches, calf pain, abdominal pain, or fever symptoms. Unlikely infectious in nature as patient HDS with stable/improved tachycardia and asymptomatic. Will follow cultures - low threshold for starting abx based on cultures. [] Monitor temperature [] Blood cultures pending #Adjustment disorder with mixed anxiety and depressed mood Patient's mood is labile oscillating between euthymic and tearful with poor insight. Patient notes that she "wishes this depression was over". Patient is on several medications for depression and anxiety. Continue her usual psychiatric medications with mirtazapine 50 mg p.o. at bedtime, Zyprexa 7.5 mg p.o. at bedtime, sertraline 200 mg p.o. daily [] PRN Ativan 1 mg for anxiety Q6 #Pulmonary emboli CT for PE as above to reassess for clot burden - no signs of clots Xarelto 20mg PO daily @ 6pm [] Hep Anti Xa LMW 0.23 (therapeutic 0.5-1.2) #Thrombocytosis Appears to have ongoing work-up for this with BCR/abl pending. Consult hematology as above #Covid 19 Her PCR is positive 04/16 but she also had a positive home test on March 20 therefore I do not think this is playing a part in her current hypoxia. Unfortunately because she has no documented PCR test she will be under isolation precautions. Family present in the room 04/19 - updated and questions were answered. VTE Prophylaxis - Xarelto as above Diet - regular Disposition - admit to PCU, PT/OT evals Code status: full (2) COVID-19: (3) Adjustment disorder with mixed anxiety and depressed mood: (4) Pulmonary emboli: (5) Autoimmune hemolytic anemia: (6) Thrombocytosis: (7) Iron deficiency anemia: Admission and Anticipated Discharge Date Admission Date: April 16, 2022 Supervising Physician Co-Signing Physician Notes Attending attestation Pt seen and examined in concert with Dr. Pearson. In agreement with the documented findings as noted in the resident documentation with any exceptions or additions as noted here. Patient reports ongoing anxiety and difficulty with focus which is worse than her normal baseline but stable on this admission. Continued improvement dyspnea and tachycardia with diuresis. Acute on chronic hypoxic respiratory failure in the setting of COVID, fluid overload 2/2 multiple transfusions - tolerating diuresis with improvement and stable O2 requirement. AIHA - hematology consultation - IVIG without current complication, will hold further iron therapy due to fever, see below. Trend CBC. Transfuse at 7 - ordered and pending delivery from [facility], likely tomorrow. Fever - single fever without change in complaint, CXR and UA without significant concern for infection though UCx sent and pending. Likely 2/2 IVIG. Continue to monitor and consider BCx/further evaluation with repeat fever. Adjustment disorder/Anxiety - still anxious with rapid topic changes. Tolerating medications without significant sedation in hospital setting. Resident physician spent considerable time with patient's spouse regarding interactions with staff and answering questions regarding ongoing management and lab studies for his records. Else see resident documentation as noted. Subjective Patient has continued anxiety and lability of mood - improved this AM. Patient lacks insight into her medical conditions. She denies any headaches, neck pain, urinary symptoms, CP, SOB, muscle aches, calf pain, abdominal pain, or fever symptoms Review of Systems Review of Systems: See HPI Physical Exam Constitutional: WD/WN, vitals as above Eyes: + anicteric sclerae; normal pupil size ENMT: external ear and nose normal, oropharynx normal Respiratory: normal respiratory effort; no respiratory distress Auscultation: no diminished lung sounds, no rales, no rhonchi and no wheezes Cardiovascular: RRR, no murmur, no edema Skin: no rashes, warm and dry Neurologic: moves all extremities and awake; not confused Psychiatric: Orientation: alert and oriented x 3 Eye Contact: + poor eye contact Motor Behavior: + psychomotor agitation Speech: + pressured speech Affect: + anxious affect Mood: + anxious mood Insight: + limited insight Judgement: + poor judgement Results & Data Results & Data ([facility]) Vital Signs (Past 12 Hours) Vital Signs Temp Pulse Pulse Resp BP Pulse Ox O2 Del Method 04/20/22 03:22 37.7 C H 94 H 14 122/71 91 Nasal Cannula 04/19/22 23:01 98 H 04/19/22 22:23 37.6 C H 98 H 18 116/57 L 91 Nasal Cannula 04/19/22 21:28 Nasal Cannula 04/19/22 20:26 39.4 C H 105 H 20 107/59 L 91 Nasal Cannula O2 Flow Rate 04/20/22 03:22 4 04/19/22 23:01 04/19/22 22:23 4 04/19/22 21:28 4 04/19/22 20:26 4 Laboratory Results 04/20/22 04/20/22 04/20/22 Range/Units 05:57 05:57 05:57 WBC 6.67 (4.8-10.8) K/ul RBC 2.32 L (3.93-5.22) M/uL Hgb 7.0 L (12.0-16.0) g/dl Hct 22.6 L (34.1-44.9) % MCV 97.4 (80.0-100.0) fL MCH 30.2 (25.0-34.0) pg MCHC 31.0 L (32.0-36.0) g/dL RDW Std Deviation 61.4 H (36.4-46.3) fL RDW Coeff of [place] 17.3 H (11.5-14.5) % Plt Count 624 H (130-400) K/uL MPV 9.3 L (9.4-12.3) fL Sodium 127 L (136-145) mmol/L Potassium 3.8 (3.5-5.1) mmol/L Chloride 100 (98-107) mmol/L Carbon Dioxide 26 (21-32) mmol/L Anion Gap 1 L (3-11) BUN 13 (6-23) mg/dl Creatinine 0.90 (0.6-1.2) mg/dl Est Cr Clr Drug Dosing 55.7 ml/min Est GFR ( Amer) 73.5 ml/min Est GFR (Non-Af Amer) 63.4 ml/min BUN/Creatinine Ratio 14.4 (10-20) Glucose 125 H (70-99(Fasting)) mg/dl Calcium 8.5 (8.5-10.1) mg/dl Total Bilirubin 0.5 (0.2-1.0) mg/dl Lactate Dehydrogenase 264 H (86-244) U/L Urine Color Urine Appearance (Clear) Urine pH (4.5-7.5) Ur Specific [place] (1.000-1.030) Urine Protein (Negative) Urine Glucose (UA) (Negative) Urine Ketones (Negative) Urine Blood (Negative) Urine Nitrite (Negative) Urine Bilirubin (Negative) Urine Urobilinogen (Negative) Ur Leukocyte Esterase (Negative) Urine WBC (Auto) (0-5) /hpf Urine RBC (Auto) (0-4) /hpf U Hyaline Cast (Auto) (0-5) /lpf U Epithel Cells (Auto) (0-5) /lpf Urine Bacteria (Auto) (Negative) 04/19/22 04/19/22 04/19/22 Range/Units 14:00 13:07 06:26 WBC 7.32 (4.8-10.8) K/ul RBC 2.44 L (3.93-5.22) M/uL Hgb 7.4 L (12.0-16.0) g/dl Hct 23.9 L (34.1-44.9) % MCV 98.0 (80.0-100.0) fL MCH 30.3 (25.0-34.0) pg MCHC 31.0 L (32.0-36.0) g/dL RDW Std Deviation 62.1 H (36.4-46.3) fL RDW Coeff of [place] 17.6 H (11.5-14.5) % Plt Count 671 H (130-400) K/uL MPV 9.1 L (9.4-12.3) fL Sodium (136-145) mmol/L Potassium (3.5-5.1) mmol/L Chloride (98-107) mmol/L Carbon Dioxide (21-32) mmol/L Anion Gap (3-11) BUN (6-23) mg/dl Creatinine (0.6-1.2) mg/dl Est Cr Clr Drug Dosing ml/min Est GFR ( Amer) ml/min Est GFR (Non-Af Amer) ml/min BUN/Creatinine Ratio (10-20) Glucose (70-99(Fasting)) mg/dl Calcium (8.5-10.1) mg/dl Total Bilirubin (0.2-1.0) mg/dl Lactate Dehydrogenase 291 H (86-244) U/L Urine Color Dark Yellow Urine Appearance Clear (Clear) Urine pH 6.0 (4.5-7.5) Ur Specific [place] 1.032 H (1.000-1.030) Urine Protein 1+ H (Negative) Urine Glucose (UA) 3+ H (Negative) Urine Ketones Negative (Negative) Urine Blood Negative (Negative) Urine Nitrite Negative (Negative) Urine Bilirubin Negative (Negative) Urine Urobilinogen Positive H (Negative) Ur Leukocyte Esterase Trace H (Negative) Urine WBC (Auto) 5-10 H (0-5) /hpf Urine RBC (Auto) 0-4 (0-4) /hpf U Hyaline Cast (Auto) 1-5 (0-5) /lpf U Epithel Cells (Auto) >30 H (0-5) /lpf Urine Bacteria (Auto) Negative (Negative) 04/19/22 Range/Units 06:26 WBC (4.8-10.8) K/ul RBC (3.93-5.22) M/uL Hgb (12.0-16.0) g/dl Hct (34.1-44.9) % MCV (80.0-100.0) fL MCH (25.0-34.0) pg MCHC (32.0-36.0) g/dL RDW Std Deviation (36.4-46.3) fL RDW Coeff of [place] (11.5-14.5) % Plt Count (130-400) K/uL MPV (9.4-12.3) fL Sodium 134 L (136-145) mmol/L Potassium 3.5 (3.5-5.1) mmol/L Chloride 102 (98-107) mmol/L Carbon Dioxide 27 (21-32) mmol/L Anion Gap 5 (3-11) BUN 16 (6-23) mg/dl Creatinine 0.97 (0.6-1.2) mg/dl Est Cr Clr Drug Dosing 51.8 ml/min Est GFR ( Amer) 67.2 ml/min Est GFR (Non-Af Amer) 57.9 ml/min BUN/Creatinine Ratio 16.5 (10-20) Glucose 119 H (70-99(Fasting)) mg/dl Calcium 8.4 L (8.5-10.1) mg/dl Total Bilirubin 0.6 D (0.2-1.0) mg/dl Lactate Dehydrogenase (86-244) U/L Urine Color Urine Appearance (Clear) Urine pH (4.5-7.5) Ur Specific [place] (1.000-1.030) Urine Protein (Negative) Urine Glucose (UA) (Negative) Urine Ketones (Negative) Urine Blood (Negative) Urine Nitrite (Negative) Urine Bilirubin (Negative) Urine Urobilinogen (Negative) Ur Leukocyte Esterase (Negative) Urine WBC (Auto) (0-5) /hpf Urine RBC (Auto) (0-4) /hpf U Hyaline Cast (Auto) (0-5) /lpf U Epithel Cells (Auto) (0-5) /lpf Urine Bacteria (Auto) (Negative) Diagnostic Findings Chest X-Ray 04/19/22 10:31 XR chest 1V portable CLINICAL HISTORY: fever atelectasis COMPARISON STUDY: None available at time of interpretation due to PACS downtime. FINDINGS: Lung volumes are normal. There is no consolidation to suggest pneumonia. Linear left basilar opacity favors atelectasis. There is no pneumothorax or pleural effusion. Mild cardiomegaly is noted. Mediastinal contours are normal. There is no evidence for pulmonary edema. IMPRESSION: No acute cardiopulmonary findings. Resident Activity Tracking Resident Involvement: Resident Care Provided Care Provided: Adult Hospital Medicine (1) Pulmonary emboli Acute cor pulmonale presence: unspecified Chronicity: acute Pulmonary embolism type: unspecified Qualified Code(s): I26.99 - Other pulmonary embolism without acute cor pulmonale
[2022-04-20] MEDS: FOLIC ACID 1 MG TAB PO SCH (08:03)
[2022-04-20] MEDS: CYANOCOBALAMIN (B-12) 500 MCG TABLET PO SCH (08:03)
[2022-04-20] MEDS: SERTRALINE HCL 100 MG TABLET PO SCH (08:03)
[2022-04-20] MEDS: PANTOprazole 40 MG TAB PO SCH (08:03)
[2022-04-20] MEDS ORDERED: SODIUM CHLORIDE 0.9% 250 ML IV PRN (08:07)
[2022-04-20] MEDS: POLYETHYLENE (MIRALAX) 17 GM PACK PO PRN (11:48)
--- NOTE | 2022-04-20 12:18 | Progress Note ---
Date of Service April 20, 2022 Assessment & Plan (1) Autoimmune hemolytic anemia: Plan: Nonresponsive to steroids and rituximab. Received IVIG 1 g/kg/day x 2 days during inpatient hospitalization with improvement in LDH and normalization of bilirubin level indicated of of response (2) Iron deficiency anemia: Plan: S/p IV Venofer X1 dose outpatient and x2 doses inpatient (3) Thrombocytosis: Plan: No evidence of myeloproliferative neoplasm with negative JAK2, AICHA R and MPL mutation analysis. Bone marrow biopsy also negative for hematologic malignancy (cytogenetics and molecular panel pending). Suspect this is due to reactive process as well as iron deficiency. Follow up on molecular/cytogenetic on BM biopsy Plan Improvement in LDH and normalization of bilirubin indicated for response to IVIG. Hemoglobin however remains low at 7. Recommend transfusing with 2 units of PRBC. If hemoglobin continues to decline with no evidence of hemolysis, would recommend GI evaluation to rule out GI bleeding given iron deficiency noted on bone marrow biopsy. Continue with daily CBC, LDH, bilirubin, reticulocyte count. Admission and Anticipated Discharge Date Admission Date: April 16, 2022 Subjective She denies chest pain, shortness of breath. Continues to complain of bilateral upper and lower extremity numbness and tingling Review of Systems Review of Systems: All systems reviewed & are unremarkable except as noted in HPI & below Physical Exam Constitutional: well developed and well nourished Respiratory: normal respiratory effort, lungs clear to auscultation Cardiovascular: RRR, no murmur, no edema Results & Data ([facility]) Vital Signs (Past 12 Hours) Vital Signs Temp Pulse Pulse Resp BP Pulse Ox O2 Del Method 04/20/22 08:00 Nasal Cannula 04/20/22 08:01 37.2 C 105 H 18 121/60 90 Nasal Cannula 04/20/22 06:13 103 H 04/20/22 03:22 37.7 C H 94 H 14 122/71 91 Nasal Cannula 04/19/22 23:01 98 H 04/19/22 22:23 37.6 C H 98 H 18 116/57 L 91 Nasal Cannula O2 Flow Rate 04/20/22 08:00 4 04/20/22 08:01 4 04/20/22 06:13 04/20/22 03:22 4 04/19/22 23:01 04/19/22 22:23 4 Laboratory Results Hemoglobin of 7, hematocrit of 22.6 with MCV of 97.4 and platelet count of 624,000 chemistry significant for sodium of 127. LDH 264 (improving)
[2022-04-20] MEDS: LORazepam 1 MG TAB PO PRN ×2 (12:34→21:37)
[2022-04-20 16:20] LABS: Hematocrit (blood only) 24.8 % (34.1-44.9); Hemoglobin 7.5 g/dl (12.0-16.0); Mean Corpuscular Hemoglobin 29.9 pg (25.0-34.0); Mean Corpuscular Hgb Conc 30.2 g/dL (32.0-36.0); Mean Corpuscular Volume 98.8 fL (80.0-100.0); Platelet Count 672 K/uL (130-400); RDW Coefficient of Variation 17.3 % (11.5-14.5); RDW Standard Deviation 62.1 fL (36.4-46.3); Red Blood Count 2.51 M/uL (3.93-5.22); White Blood Count 8.49 K/ul (4.8-10.8)
[2022-04-20 16:40] LABS: BUN Creatinine Ratio 14.3 (10-20); Calcium 8.8 mg/dl (8.5-10.1); Creatinine Clr Calc Pharmacy 44.8 ml/min; Est GFR (African American) 56.4 ml/min; Est GFR (Non-African American) 48.7 ml/min; Potassium 3.9 mmol/L (3.5-5.1)
[2022-04-20] MEDS: RIVAROXABAN 20 MG TAB PO SCH (16:57)
[2022-04-20 17:35] LABS: Anion Gap 3.9 (3-11)
[2022-04-20] MEDS: MELATONIN 3 MG TAB PO PRN (21:37)
[2022-04-20] MEDS: MIRTAZAPINE TAB 15 MG TAB PO SCH (21:37)
[2022-04-20] MEDS: OLANZAPINE 2.5 MG TAB PO SCH (21:38)
[2022-04-20] MEDS: SIMVASTATIN 40 MG TAB PO SCH (21:38)
--- NOTE | 2022-04-21 06:47 | Hospitalist Progress Note ---
Date of Service April 21, 2022 Assessment & Plan (1) Acute and chronic respiratory failure with hypoxia: Plan: Velma Tao is a 71 y/o female with recent diagnosis of autoimmune hemolytic anemia, anxiety/depression, and bilateral pulmonary emboli treated with Xarelto here for evaluation of SOB with low O2 sats admitted for ongoing management of hypoxia slowly clinically improving. #Acute and chronic respiratory failure with hypoxia Echocardiogram in January with no regional wall abnormalities, moderate pulmonary hypertension with RVSP 56 mmHg - repeat ECHO -- left ventricular systolic function is normal. Grade I diastolic dysfunction (abnormal relaxation pattern). Right ventricular systolic pressure is normal. No significant valvular heart disease. Likely related to fluid overload in the setting of recent transfusion with Grade I diastolic HF. Worsening autoimmune hemolytic anemia may be playing a role as well leading to weakness and worse respiratory efforts. CTA did not show any clots. PT/PTT/INR WNL. Patient appears to be euvolemic at this time. No need for further diuresis. [] Diurese as needed with IV Lasix, AM BMP [] Fluid restriction [] Strict Is/Os [] Daily weights #Autoimmune hemolytic anemia Hematology onboard. Rec AM CBC, LDH, Tbili. IVIG 1 g/kg for two days. Venofer 300 mg every other day for 2 days 2/2 bags given. Can consider cyclophosphamide outpatient. Discussed with Dr. Francisco - LDH improving, bili has normalized. She discussed that Hbg should stabilize over the next 24-48 hours. If it doesn't and continues to decrease we will look for another source of bleeding. Venofer 300 mg Q48 2/2 bags completed 04/19. IVIG x2 completed 04/19. Hemoglobin continues to drop 7.2 04/19. Recheck afternoon H&H - 7.4. O neg, + antibodies -- leukocyte reduced blood. Consent signed and in chart. Hemoglobin 7.0 on 04/20 - ordered one unit. Will have another on standby if needed. Afternoon CBC. [] Q12 CBC [] AM LDH, Tbili [] transfuse <7, O neg, + antibodies - leukocyte reduced blood - consent signed and in chart [] 1 unit PRBC leukocyte reduced given #Fever Patient had a temperature of 38.6 now afebrile. Likely in the setting of IVIG. CXR and UA to look for an infectious cause of fever - CXR did not show signs of pneumonia, UA showed mixed skin iliana. Can consider drawing blood cultures if she continues to fever. Continue to monitor. Can give Tylenol. Patient had a 39.4 fever - blood cultures drawn. Patient denies any headaches, neck pain, urinary symptoms, CP, SOB, muscle aches, calf pain, abdominal pain, or fever symptoms. Unlikely infectious in nature as patient HDS with stable/improved tachycardia and asymptomatic. Will follow cultures - low threshold for starting abx based on cultures. [] Monitor temperature [] Blood cultures pending #Adjustment disorder with mixed anxiety and depressed mood Patient's mood is labile oscillating between euthymic and tearful with poor insight. Patient notes that she "wishes this depression was over". Patient is on several medications for depression and anxiety. Continue her usual psychiatric medications with mirtazapine 50 mg p.o. at bedtime, Zyprexa 7.5 mg p.o. at bedtime, sertraline 200 mg p.o. daily [] PRN Ativan 1 mg for anxiety Q6 #Pulmonary emboli CT for PE as above to reassess for clot burden - no signs of clots Xarelto 20mg PO daily @ 6pm [] Hep Anti Xa LMW 0.23 (therapeutic 0.5-1.2) #Thrombocytosis Appears to have ongoing work-up for this with BCR/abl pending. Consult hematology as above #Covid 19 Her PCR is positive 04/16 but she also had a positive home test on March 20 therefore I do not think this is playing a part in her current hypoxia. Unfortunately because she has no documented PCR test she will be under isolation precautions. Family present in the room 04/19 - updated and questions were answered. VTE Prophylaxis - Xarelto as above Diet - regular Disposition - admit to PCU, PT/OT evals Code status: full (2) COVID-19: (3) Adjustment disorder with mixed anxiety and depressed mood: (4) Pulmonary emboli: (5) Autoimmune hemolytic anemia: (6) Thrombocytosis: (7) Iron deficiency anemia: Admission and Anticipated Discharge Date Admission Date: April 16, 2022 Subjective Patient has continued anxiety and lability of mood - improved this AM. Patient lacks insight into her medical conditions. She denies any headaches, neck pain, urinary symptoms, CP, SOB, muscle aches, calf pain, abdominal pain, or fever symptoms Review of Systems Review of Systems: See HPI Physical Exam Constitutional: WD/WN, vitals as above Eyes: + anicteric sclerae; normal pupil size ENMT: external ear and nose normal, oropharynx normal Respiratory: normal respiratory effort; no respiratory distress Auscultation: no diminished lung sounds, no rales, no rhonchi and no wheezes Cardiovascular: RRR, no murmur, no edema Skin: no rashes, warm and dry Neurologic: moves all extremities and awake; not confused Psychiatric: Orientation: alert and oriented x 3 Eye Contact: + poor eye contact Motor Behavior: + psychomotor agitation Speech: + pressured speech Affect: + anxious affect Mood: + anxious mood Insight: + limited insight Judgement: + poor judgement Results & Data Results & Data ([facility]) Vital Signs (Past 12 Hours) Vital Signs Temp Pulse Pulse Resp BP BP Pulse Ox 04/21/22 02:41 37.6 C 92 H 16 109/67 92 04/21/22 01:53 37.4 C 86 14 109/61 93 04/21/22 00:53 37.4 C 93 H 111/60 90 04/21/22 00:23 37.3 C 96 H 14 109/65 91 04/21/22 00:08 37.7 C H 93 H 14 109/65 93 04/20/22 23:43 37.3 C 114 H 18 121/73 93 04/20/22 23:30 37.3 C 114 H 18 121/73 93 04/20/22 23:04 113 H 04/20/22 23:04 04/20/22 19:58 37 C 116 H 20 103/58 L 91 O2 Del Method O2 Flow Rate 04/21/22 02:41 4 04/21/22 01:53 3 04/21/22 00:53 4 04/21/22 00:23 3 04/21/22 00:08 4 04/20/22 23:43 3 04/20/22 23:30 Nasal Cannula 3 04/20/22 23:04 04/20/22 23:04 Nasal Cannula 3 04/20/22 19:58 Nasal Cannula 3 Diagnostic Findings No new imaging. (1) Pulmonary emboli Acute cor pulmonale presence: unspecified Chronicity: acute Pulmonary embolism type: unspecified Qualified Code(s): I26.99 - Other pulmonary embolism without acute cor pulmonale
[2022-04-21 07:35] LABS: Hematocrit (blood only) 25.7 % (34.1-44.9); Hemoglobin 8.1 g/dl (12.0-16.0); Mean Corpuscular Hemoglobin 30.1 pg (25.0-34.0); Mean Corpuscular Hgb Conc 31.5 g/dL (32.0-36.0); Mean Corpuscular Volume 95.5 fL (80.0-100.0); Mean Platelet Volume 9.5 fL (9.4-12.3); Platelet Count 629 K/uL (130-400); RDW Standard Deviation 58.6 fL (36.4-46.3); Red Blood Count 2.69 M/uL (3.93-5.22); White Blood Count 6.52 K/ul (4.8-10.8)
[2022-04-21 08:00] LABS: BUN Creatinine Ratio 15.3 (10-20); Bilirubin,Total 0.5 mg/dl (0.2-1.0); Calcium 8.5 mg/dl (8.5-10.1); Creatinine Clr Calc Pharmacy 59.1 ml/min; Est GFR (African American) 78.8 ml/min; Potassium 3.8 mmol/L (3.5-5.1)
[2022-04-21] MEDS: SERTRALINE HCL 100 MG TABLET PO SCH (09:15)
[2022-04-21] MEDS: PANTOprazole 40 MG TAB PO SCH (09:15)
[2022-04-21] MEDS: FOLIC ACID 1 MG TAB PO SCH (09:15)
[2022-04-21] MEDS: CYANOCOBALAMIN (B-12) 500 MCG TABLET PO SCH (09:15)
[2022-04-21] MEDS: POLYETHYLENE (MIRALAX) 17 GM PACK PO PRN (10:50)
[2022-04-21] MEDS: LORazepam 1 MG TAB PO PRN ×2 (10:50→20:42)
--- NOTE | 2022-04-21 11:35 | Progress Note ---
Date of Service April 21, 2022 Assessment & Plan (1) Autoimmune hemolytic anemia: Plan: Nonresponsive to steroids and rituximab. Received IVIG 1 g/kg/day x 2 days during inpatient hospitalization with improvement in LDH and normalization of bilirubin level indicated of of response (2) Iron deficiency anemia: Plan: S/p IV Venofer X1 dose outpatient and x2 doses inpatient (3) Thrombocytosis: Plan: No evidence of myeloproliferative neoplasm with negative JAK2, AICHA R and MPL mutation analysis. Bone marrow biopsy also negative for hematologic malignancy (cytogenetics and molecular panel pending). Suspect this is due to reactive process as well as iron deficiency. Follow up on molecular/cytogenetic on BM biopsy Plan -Continued Improvement in LDH and normalization of bilirubin indicated for response to IVIG. -Hemoglobin now 8.1 post PRBC transfusion yesterday. Transfuse for hemoglobin less than 7.5 -If hemoglobin continues to decline with stable LDH, would recommend GI evaluation to rule out GI bleeding given iron deficiency noted on bone marrow biopsy. -Continue daily folic acid -Continue with daily CBC, LDH, bilirubin, reticulocyte count. -If she is deemed stable enough for discharge from a medical standpoint, we will set her up for weekly labs and transfusion as needed as an outpatient. Admission and Anticipated Discharge Date Admission Date: April 16, 2022 Subjective No new issues. Transfused with PRBC yesterday. Results & Data ([facility]) Vital Signs (Past 12 Hours) Vital Signs Temp Pulse Pulse Resp BP BP BP 04/21/22 10:53 36.6 C 87 16 126/70 04/21/22 09:10 04/21/22 08:00 37.1 C 94 H 17 111/60 04/21/22 05:59 83 04/21/22 02:41 37.6 C 92 H 16 109/67 04/21/22 01:53 37.4 C 86 14 109/61 04/21/22 00:53 37.4 C 93 H 111/60 04/21/22 00:23 37.3 C 96 H 14 109/65 04/21/22 00:08 37.7 C H 93 H 14 109/65 04/20/22 23:43 37.3 C 114 H 18 121/73 04/20/22 23:30 37.3 C 114 H 18 121/73 Pulse Ox O2 Del Method O2 Flow Rate 04/21/22 10:53 95 Nasal Cannula 3 04/21/22 09:10 Nasal Cannula 4 04/21/22 08:00 94 Nasal Cannula 4 04/21/22 05:59 04/21/22 02:41 92 4 04/21/22 01:53 93 3 04/21/22 00:53 90 4 04/21/22 00:23 91 3 04/21/22 00:08 93 4 04/20/22 23:43 93 3 04/20/22 23:30 93 Nasal Cannula 3
[2022-04-21] MEDS ORDERED: FUROSEMIDE INJ 20 MG/2 ML VIAL IV ONE (16:26)
[2022-04-21] MEDS: RIVAROXABAN 20 MG TAB PO SCH (16:40)
--- NOTE | 2022-04-21 17:06 | Hospitalist Progress Note ---
Date of Service April 21, 2022 Assessment & Plan (1) Acute and chronic respiratory failure with hypoxia: Plan: Velma Tao is a 71 y/o female with recent diagnosis of autoimmune hemolytic anemia, anxiety/depression, and bilateral pulmonary emboli treated with Xarelto here for evaluation of SOB with low O2 sats admitted for ongoing management of hypoxia slowly clinically improving. #Acute and chronic respiratory failure with hypoxia Echocardiogram in January with no regional wall abnormalities, moderate pulmonary hypertension with RVSP 56 mmHg - repeat ECHO -- left ventricular systolic function is normal. Grade I diastolic dysfunction (abnormal relaxation pattern). Right ventricular systolic pressure is normal. No significant valvular heart disease. Likely related to fluid overload - suspect overall improved, but on review of CT from a few days prior - could easily still have a small amount of pulmonary edema that would not really be able to be heard - additional 20mg lasix IV today. #Autoimmune hemolytic anemia Hematology onboard. Rec AM CBC, LDH, Tbili. IVIG 1 g/kg for two days. Venofer 300 mg every other day for 2 days 2/2 bags given. Can consider cyclophosphamide outpatient. Appears to be improving. LDH and bilirubin reassuring. Follow-up CBC in a.m. If hemoglobin continues to drop, as noted by hematology then consider GI work-upDiscussed with Dr. Francisco - LDH improving, bili has no rmalized. She discussed that Hbg should stabilize over the next 24-48 hours. If it doesn't and continues to decrease we will look for another source of bleeding. Venofer 300 mg Q48 2/2 bags completed 04/19. IVIG x2 completed 04/19. #Fever Appears to have resolved #Adjustment disorder with mixed anxiety and depressed mood Discussed depression and anxiety management, including medications, counseling, and lifestyle measures. Discussed with patient and family in depth. #Pulmonary emboli CT for PE as above to reassess for clot burden - no signs of clots Continue Xarelto #Thrombocytosis Per hematology #Covid 19 Her PCR is positive 04/16 but she also had a positive home test on March 20 therefore I do not think this is playing a part in her current hypoxia. Unfortunately because she has no documented PCR test she will be under isolation precautions. Hopefully home in the next day or so as long as hemoglobin is stable. May need more supplemental oxygen. Admission and Anticipated Discharge Date Admission Date: April 16, 2022 Subjective No shortness of breath or dyspnea on exertion. Still feels very anxious and depressed at times. Notes this been going on since about mid January. Family present. Answered all questions the best my ability and to their satisfaction.Discussed potential to go home Review of Systems Review of Systems: All systems reviewed & are unremarkable except as noted in HPI & below Physical Exam Physical Exam: In general she is awake and alert pleasant no distress. HEENT normocephalic atraumatic mucous membranes moist. Lungs clear to auscultation bilaterally no rales rhonchi or wheeze good effort. Skin shows no rashes no pallor or icterus. Neuro without focal deficits. Depressed and at times tearful affect. Results & Data Results & Data ([facility]) Vital Signs (Past 12 Hours) Vital Signs Temp Pulse Pulse Resp BP BP Pulse Ox 04/21/22 16:38 98.2 F 92 H 18 136/78 97 04/21/22 14:22 97 H 04/21/22 10:53 97.9 F 87 16 126/70 95 04/21/22 09:10 04/21/22 08:00 98.8 F 94 H 17 111/60 94 04/21/22 05:59 83 O2 Del Method O2 Flow Rate 04/21/22 16:38 Nasal Cannula 2 04/21/22 14:22 04/21/22 10:53 Nasal Cannula 3 04/21/22 09:10 Nasal Cannula 4 04/21/22 08:00 Nasal Cannula 4 04/21/22 05:59 PG Care Time/CCT Total # of Minutes Spent Total Time Spent with Patient: Total time spent is greater than 50% in coordination of care (as documented) at patient's floor/unit and/or counseling patient: Coding Level of Care Code 80788 Subseq Hosp Care Lvl 3 Diagnoses Acute and chronic respiratory failure with hypoxia J96.21
[2022-04-21] MEDS: SIMVASTATIN 40 MG TAB PO SCH (20:41)
[2022-04-21] MEDS: MIRTAZAPINE TAB 15 MG TAB PO SCH (20:42)
[2022-04-21] MEDS: MELATONIN 3 MG TAB PO PRN (20:42)
[2022-04-21] MEDS: OLANZAPINE 2.5 MG TAB PO SCH (20:43)
[2022-04-22] MEDS: LORazepam 1 MG TAB PO PRN ×2 (01:59→09:12)
--- NOTE | 2022-04-22 06:17 | Hospitalist Progress Note ---
Date of Service April 22, 2022 Assessment & Plan (1) Acute and chronic respiratory failure with hypoxia: Plan: Velma Tao is a 71 y/o female with recent diagnosis of autoimmune hemolytic anemia, anxiety/depression, and bilateral pulmonary emboli treated with Xarelto here for evaluation of SOB with low O2 sats admitted for ongoing management of hypoxia slowly clinically improving. #Acute and chronic respiratory failure with hypoxia Echocardiogram in January with no regional wall abnormalities, moderate pulmonary hypertension with RVSP 56 mmHg - repeat ECHO -- left ventricular systolic function is normal. Grade I diastolic dysfunction (abnormal relaxation pattern). Right ventricular systolic pressure is normal. No significant valvular heart disease. Likely related to fluid overload - suspect overall improved, but on review of CT from a few days prior - could easily still have a small amount of pulmonary edema that would not really be able to be heard - additional 20mg lasix IV today. At this point, given her improvements, will liberalize fluid restriction. #Autoimmune hemolytic anemia Hematology onboard. Rec AM CBC, LDH, Tbili. IVIG 1 g/kg for two days. Venofer 300 mg every other day for 2 days 2/2 bags given. Can consider cyclophosphamide outpatient. Appears to be improving. LDH and bilirubin reassuring. Follow-up CBC in a.m. If hemoglobin continues to drop, as noted by hematology then consider GI work-up. Discussed with Dr. Francisco - LDH improving, bili has normalized; H&H has nicely improved in 72hr post-IVIG (completed 04/19). Will require weekly labs on discharge. #Fever Appears to have resolved #Adjustment disorder with mixed anxiety and depressed mood Discussed depression and anxiety management, including medications, counseling, and lifestyle measures. Discussed with patient and family in depth. Would likely benefit from mirtazapine increase as outpatient - patient would like to discuss with PCP first. #Pulmonary emboli CT for PE as above to reassess for clot burden - no signs of clots Continue Xarelto #Thrombocytosis Per hematology #Covid 19 Her PCR is positive 04/16 but she also had a positive home test on March 20 therefore I do not think this is playing a part in her current hypoxia. Unfortunately because she has no documented PCR test she will be under isolation precautions. Admission and Anticipated Discharge Date Admission Date: April 16, 2022 Subjective NAEO. Mood isn't great this AM - endorses worsening depression. Looking forward to getting home. Breathing OK - no SOB, no pain. Appetite isn't great. Wasn't able to sleep a lot last night. Review of Systems Review of Systems: as per HPI Physical Exam Physical Exam: General: 71-year old female who is alert, oriented, and appears in no acute distress. HEENT: NCAT. - Eyes - Sclera are white, anicteric, and without injection. - Mouth - MMM - Neck - supple, no appreciable JVD Cardiac: Normal rate and regular rhythm; S1 and S2 present with no murmurs, rubs, or gallops. Pulmonary: Good respiratory effort with symmetric expansion of the chest. No use of accessory muscles. Lungs were clear to auscultation bilaterally with no crackles or wheezes. Abdominal: Normoactive bowel sounds. Abdomen was soft, nondistended, and non-tender to palpation. Extremities: Upper and lower extremities are warm and well perfused. Minimal peripheral edema in the lower extremities bilaterally Results & Data Results & Data ([facility]) Vital Signs (Past 12 Hours) Vital Signs Temp Pulse Pulse Resp BP Pulse Ox O2 Del Method 04/22/22 02:36 37.2 C 79 18 108/62 92 Nasal Cannula 04/22/22 00:45 86 04/22/22 00:45 Nasal Cannula 04/21/22 22:31 37.3 C 93 H 22 95/52 L 91 Nasal Cannula 04/21/22 19:48 37.5 C 88 18 117/61 92 Nasal Cannula O2 Flow Rate 04/22/22 02:36 2 04/22/22 00:45 04/22/22 00:45 2 04/21/22 22:31 2 04/21/22 19:48 2 Resident Activity Tracking Resident Involvement: Resident Care Provided Care Provided: Adult Hospital Medicine
[2022-04-22 06:39] LABS: Basophils # (auto) 0.03 K/uL (0-0.2); Basophils % (auto) 0.4 %; Eosinophils # (auto) 0.12 K/uL (0-0.50); Eosinophils % (auto) 1.7 %; Hematocrit (blood only) 26.5 % (34.1-44.9); Hemoglobin 8.4 g/dl (12.0-16.0); Immature Granulocytes # (auto) 0.12 K/uL (0.00-0.02); Immature Granulocytes % (auto) 1.7 %; Lymphocytes # (auto) 1.05 K/uL (1.2-3.4); Lymphocytes % (auto) 14.8 %; Mean Corpuscular Hemoglobin 30.4 pg (25.0-34.0); Mean Corpuscular Hgb Conc 31.7 g/dL (32.0-36.0); Mean Platelet Volume 9.2 fL (9.4-12.3); Monocytes # (auto) 0.55 K/uL (0.24-0.82); Monocytes % (auto) 7.7 %; Neutrophils # (auto) 5.24 K/uL (1.4-6.5); Neutrophils % (auto) 73.7 %; Platelet Count 671 K/uL (130-400); RDW Coefficient of Variation 16.9 % (11.5-14.5); RDW Standard Deviation 58.2 fL (36.4-46.3); Red Blood Count 2.76 M/uL (3.93-5.22); White Blood Count 7.11 K/ul (4.8-10.8)
[2022-04-22 07:07] LABS: BUN Creatinine Ratio 16.8 (10-20); Bilirubin,Total 0.6 mg/dl (0.2-1.0); Calcium 8.7 mg/dl (8.5-10.1); Creatinine Clr Calc Pharmacy 53.2 ml/min; Est GFR (African American) 68.9 ml/min; Est GFR (Non-African American) 59.4 ml/min; Potassium 3.8 mmol/L (3.5-5.1)
[2022-04-22] MEDS: FOLIC ACID 1 MG TAB PO SCH (09:00)
[2022-04-22] MEDS: PANTOprazole 40 MG TAB PO SCH (09:00)
[2022-04-22] MEDS: SERTRALINE HCL 100 MG TABLET PO SCH (09:00)
[2022-04-22] MEDS: CYANOCOBALAMIN (B-12) 500 MCG TABLET PO SCH (09:00)
--- NOTE | 2022-04-22 09:33 | Discharge Summary ---
Date of Service April 22, 2022 Admission HPI Per Admitting Provider Velma Tao is a 71 year old female with recent diagnosis of autoimmune hemolytic anemia who presents to the ER with shortness of breath. Her at bedside provides the majority of the history. The patient is very anxious and intermittently says she does not want to stay but does not appear to understand any of her medical conditions to be able to make an informed decision at this time. Her does not want to take her home given her significant hypoxia with O2 sats 80% on room air and she has no other transport. She has had 2 recent significant admissions from January 15 to 2021 with bilatera l pulmonary emboli and left lower extremity DVT. She was treated with Xarelto. On discharge she required 2.5 liters O2 via nasal cannula with activity but not at rest. She was then admitted from March 04 to 2021 due to generally feeling awful and anxious with a hemoglobin drop from 8.9-5.4. She was diagnosed with autoimmune hemolytic anemia treated with 4 units of blood and 90 mg of prednisone daily. Her reports she was not requiring oxygen on discharge. Since discharge she has had further 5 units of blood; most recently 2 units were given yesterday. She tapered off the prednisone with her last dose 1 week previous. She has been receiving Rituxan for thrombocytosis. It is very difficult to get a definitive history of symptoms from the patient as she just reports feeling awful all the time. reports on Thursday (3 days previously) her oxygen saturations suddenly dropped to the 70s on room air and she is continuously needed oxygen since then. [facility] and on Thursday had an iron transfusion. Her hemoglobin had dropped again to 6.2 g/dL at that time and the following day (yesterday) she received 2 units of blood. She reports no significant change in her symptoms despite the blood transfusions and her reports no change in her oxygen saturations. Therefore they called her primary care provider and Dr. Francisco who recommended coming to the emergency room. In the ER SARS-CoV-2 PCR positive. However reports they both tested positive on home test on March 20 and was mostly asymptomatic other than he had a sore throat at the time prompting the test. They did not have any official PCR test. The only other recent change is olanzapine was added to her psychiatric medications by Dr. Deluca on April 02 although they unclear the reason for this addition. This was uptitrated to 7.5 mg at bedtime 2 days ago. The patient reports no significant change in anxiety over the last week. In the ER her O2 sats were 80% on room air. She was referred to medicine for admission ongoing management of hypoxia, COVID. Admission Exam Per Admitting Provider Constitutional: WD/WN, vitals as above Eyes: + anicteric sclerae; normal pupil size ENMT: external ear and nose normal, oropharynx normal Neck: trachea midline, no thyromegaly Respiratory: normal respiratory effort; no respiratory distress Auscultation: + crackles (bibasal); no diminished lung sounds, no rales, no rhonchi and no wheezes Cardiovascular: RRR, no murmur, no edema Gastrointestinal (Abdomen): normal bowel sounds, soft, nontender, no hepatosplenomegaly Musculoskeletal: no cyanosis or clubbing, extremities motor strength 5/5 Skin: no rashes, warm and dry Neurologic: moves all extremities and awake; not confused Psychiatric: Orientation: alert and oriented x 3 Eye Contact: + poor eye contact Motor Behavior: + psychomotor agitation Speech: + pressured speech Affect: + anxious affect Mood: + anxious mood Insight: + limited insight Judgement: + poor judgement Principal Diagnosis acute hypoxic respiratory failure autoimmune hemolytic anemia Discharge Exam General: 71-year old female who is alert, oriented, and appears in no acute distress. HEENT: NCAT. - Eyes - Sclera are white, anicteric, and without injection. - Mouth - MMM - Neck - supple, no appreciable JVD Cardiac: Normal rate and regular rhythm; S1 and S2 present with no murmurs, rubs, or gallops. Pulmonary: Good respiratory effort with symmetric expansion of the chest. No use of accessory muscles. Lungs were clear to auscultation bilaterally with no crackles or wheezes. Abdominal: Normoactive bowel sounds. Abdomen was soft, nondistended, and non- tender to palpation. Extremities: Upper and lower extremities are warm and well perfused. Minimal peripheral edema in the lower extremities bilaterally Discharge Data Allergies Allergy/AdvReac Type Severity Reaction Status Date / Time No Known Allergies Allergy Verified 04/15/22 10:36 Consultations 04/16/22 13:08 ED Decision to Admit Stat 04/16/22 15:07 Consult Hematology Routine - excerpted from Dr. Francisco 04/22 "(1) Autoimmune hemolytic anemia: Plan: Nonresponsive to steroids and rituximab. Received IVIG 1 g/kg/day x 2 days during inpatient hospitalization with improvement in LDH and normalization of bilirubin level indicated of of response (2) Iron deficiency anemia: Plan: S/p IV Venofer X1 dose outpatient and x2 doses inpatient (3) Thrombocytosis: Plan: No evidence of myeloproliferative neoplasm with negative JAK2, AICHA R and MPL mutation analysis. Bone marrow biopsy also negative for hematologic malignancy (cytogenetics and molecular panel pending). Suspect this is due to reactive process as well as iron deficiency. Follow up on molecular/cytogenetic on BM biopsy Plan -Continued Improvement in LDH and normalization of bilirubin indicated for r esponse to IVIG. -Hemoglobin now 8.1 post PRBC transfusion yesterday. Transfuse for hemoglobin less than 7.5 -If hemoglobin continues to decline with stable LDH, would recommend GI evaluation to rule out GI bleeding given iron deficiency noted on bone marrow biopsy. -Continue daily folic acid -Continue with daily CBC, LDH, bilirubin, reticulocyte count. -If she is deemed stable enough for discharge from a medical standpoint, we will set her up for weekly labs and transfusion as needed as an outpatient." Ordered Studies 04/16/22 15:03 CT for pulmonary embolism PE [CT angio chest PE protocol] Stat CT ANGIOGRAPHY OF THE CHEST, PULMONARY EMBOLUS PROTOCOL CLINICAL HISTORY: Hypoxia. Evaluate for pulmonary embolus. COMPARISON STUDY: Chest CT March 06, 2022. Chest radiograph performed earlier today. TECHNIQUE: Following IV administration of 110 mL of Optiray, helical axial images of the chest were obtained utilizing the pulmonary embolus protocol. Maximal intensity projections and sagittal and coronal reformats were viewed on an independent 3D workstation. IV contrast was administered without complication. Automated exposure control was utilized for the study. A dose lowering technique was utilized adhering to the principles of ALARA. CT DOSE: 264.92 mGy.cm FINDINGS: No pulmonary emboli are identified. There is no thoracic aortic dissection. Moderate cardiomegaly is noted. There are trace bilateral pleural effusions. No pneumothorax is present. Interlobular septal thickening is noted. Additional ground glass opacities within the lungs are present. No acute fracture or suspicious lesion within the bony thorax is noted. A 2.7 cm cystic left lobe thyroid nodule is unchanged. A small hiatal hernia is present. There is mild splenomegaly, partially imaged on this exam. IMPRESSION: 1. No pulmonary emboli identified. 2. Cardiomegaly with pulmonary edema and trace bilateral pleural effusions. Hospital Course (1) Acute and chronic respiratory failure with hypoxia: Velma Tao is a 71 y/o female with recent diagnosis of autoimmune hemolytic anemia, anxiety/depression, and bilateral pulmonary emboli treated with Xarelto here for evaluation of SOB with low O2 sats admitted for ongoing management of hypoxia slowly clinically improving. #Acute and chronic respiratory failure with hypoxia Echocardiogram in January with no regional wall abnormalities, moderate pulmonary hypertension with RVSP 56 mmHg - repeat ECHO -- left ventricular systolic function is normal. Grade I diastolic dysfunction (abnormal relaxation pattern). Right ventricular systolic pressure is normal. No significant valvular heart di sease. Likely related to fluid overload - suspect overall improved, but on review of CT from a few days prior - could easily still have a small amount of pulmonary edema that would not really be able to be heard. At time of discharge, saturating well on RA. Will discontinue diuresis. #Autoimmune hemolytic anemia Hematology onboard. Rec AM CBC, LDH, Tbili. IVIG 1 g/kg for two days. Venofer 300 mg every other day for 2 days 2/2 bags given. Can consider cyclophosphamide outpatient. Appears to be improving. LDH and bilirubin reassuring. Follow-up CBC in a.m. If hemoglobin continues to drop, as noted by hematology then consider GI work-up. Discussed with Dr. Francisco - LDH improving, bili has normalized; H&H has nicely improved in 72hr post-IVIG (completed 04/19). Will require weekly labs on discharge. #Fever Resolved without clear source prior to discharged. #Adjustment disorder with mixed anxiety and depressed mood Discussed depression and anxiety management, including medications, counseling, and lifestyle measures. Discussed with patient and family in depth. Would likely benefit from mirtazapine increase as outpatient - patient would like to discuss with PCP first. #Pulmonary emboli CT for PE as above to reassess for clot burden - no signs of clots Continue Xarelto #Thrombocytosis Per hematology #Covid 19 Her PCR is positive 04/16 but she also had a positive home test on March 20 therefore I do not think this is playing a part in her current hypoxia. Unfortunately because she has no documented PCR test she will be under isolation precautions. Total Time Total Time Spent Total Time Spent (In Minutes): <30 Discharge Plan Discharge Items Patient Disposition: Home - Self-Care Reason For Visit: COVID-19, HYPOXIC RESPIRATORY FAILURE Discharge Diagnosis: Autoimmune hemolytic anemia Acute hypoxic respiratory failure Activity: Per Instructions section Non-emergency contact: Primary Care Provider and Specialist Call non-emergency contact if: you have any medication questions and your temperature is above 101 Follow-up/Referrals: Claus Escalante DO [Primary Care Provider] - Frieda Francisco MD [Physician] - Diet: Heart Healthy and Low Sodium (2gm) Ambulatory Orders: Complete Blood Count with Diff (Routine) Timeframe: 1 Week Location: Determined by Patient Ordered By: Arturo Elizabeth Comprehensive Metabolic Panel (Routine) Timeframe: 1 Week Location: Determined by Patient Ordered By: Arturo Elizabeth Lactate Dehydrogenase (Routine) Timeframe: 1 Week Location: Determined by Patient Ordered By: Arturo Elizabeth Addtl Attending Provider Instructions: You were seen in [facility] for evaluation of shortness of breath. Upon arrival here, you underwent several tests to determine the cause of your symptoms. You were found to have low blood counts due to an autoimmune condition. This occurs when your immune system, which normally asked to protect your body against infection, begins mistakenly attacking your own body cells. In this case, your immune system had targeted your red blood cells. Blood cells are responsible for transporting oxygen and nutrients to your body. Because your blood counts were low, you were given transfusions. During this process, you also did demonstrate a need for supplemental oxygenlikely secondary to excess body fluid. You underwent therapies to remove some of this fluid. You responded well. Upon discharge, it will be critical that you follow-up with hematology. You will have to get weekly labs in preparation for these appointments. It will also be very important that you follow-up with your primary care physician within the next week to review his visit. 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 In the interim, if you experience worsening shortness of breath, chest pain, palpitations, fever, chills, sweats, significant illness, or other worrisome symptoms, please report to the ER immediately for evaluation. Is a pleasure for caring for you while here, we wish you all the best in your recovery. Pending Studies at Discharge: No Stand-Alone Forms: My [facility], Smoking Cessation Medications and DC Order Prescriptions: Continued simvastatin 40 mg tablet 40 mg PO HS Xarelto 20 mg tablet 20 mg PO Q24H Rx Instructions: 6pm mirtazapine 15 mg tablet 15 mg PO HS lorazepam 1 mg tablet 0.5 - 1 mg PO BID PRN (Reason: severe anxiety) pantoprazole 40 mg Tablet,Delayed Release (Dr/Ec) 40 mg PO QAM Qty: 30 0RF folic acid 1 mg Tablet 1 mg PO QAM Qty: 30 0RF cyanocobalamin (vitamin B-12) 1,000 mcg capsule 1,000 mcg PO DAILY Qty: 30 0RF sertraline [Zoloft] 100 mg Tablet 200 mg PO DAILY olanzapine [Zyprexa] 7.5 mg Tablet 7.5 mg PO HS Discharge Orders: Discharge Order (Routine); Ordered 04/22/22 Ordered By: Arturo Elizabeth Admission Data Admit Date/Time: 04/16/22 14:22 Attending Provider: Arturo Saleh Admit Provider: Kenneth Lala Primary Care Provider: Claus Escalante Other Providers: Kenneth Lala ; Stephen Martin ; Juan M Flores Other Interventions: Discharge Summary Assessment (RN) Last Done: 04/22/22 11:47 Supervising Physician Co-Signing Physician Notes I personally examined the patient and verified all dubon points of history and exam, discussed case, and agree with decision making with Dr Elizabeth other than depression she is feeling better. was able to recap some of what we talked about (particularly in the lifestyle change category) for how to manage depression beyond simply medications. vitals noted nad heent nc at mmm lungs cta b/l no r/r/w good effort no accessory muscles use no conversational dyspnea. no pallor or icterus. no focal neuro deficits hypoxia - likely a degree of HFpEF now improving, possibly a degree covid. stable for home - already has home O2, pulse ox. hopefully can wean over time depression - retierated counselling, lifestyle in addition to medications autoimmune hemolytic anemia - appears to have stabilized after IVIG. weekly labs, close outpt PCP and hematology f/u otherwise as above Resident Activity Tracking Resident Involvement: Resident Care Provided Care Provided: Adult Hospital Medicine
--- NOTE | 2022-04-22 12:24 | Billing Data ---
Date of Service April 22, 2022 Coding Level of Care Code D/C DAY MANAGEMENT <30 MINS
== END 2022-04-22 14:25 | disposition home or self-care (01) | DRG 189 ==
LOC: ED 10:57 → 2E 14:22 → SUATTDRO 14:22 → SUPCPDRO 14:22 → 2E 15:24